=== PATIENT | female | born 1935 | race Caucasian/White ===

== ENCOUNTER 2023-10-05 09:35 | Outpatient (OUT) | payer MEDICARE, SELFPAY ==
[2023-10-05 10:27] LABS: Basophils Absolute Auto 0.1 10^3/uL (0.0-0.1); Eosinophils Absolute Auto 0.1 10^3/uL (0.0-0.7); Eosinophils Percent Auto 1.9 % (0.9-7.0); Hematocrit 35.8 % (36.0-48.0); Hemoglobin 11.7 g/dL (12.0-16.0); Immature Granulocytes Abs Auto 0.01 10^3/uL (0.00-0.03); Immature Granulocytes Pct Auto 0.2 % (0.0-0.5); Lymphocytes Percent Auto 19.5 % (20.5-60.0); Mean Corpuscular HGB Conc 32.7 g/dL (29.9-35.2); Mean Platelet Volume 12.3 fL (9.5-13.5); Monocytes Absolute Auto 0.7 10^3/uL (0.3-0.8); Neutrophils Absolute Auto 3.3 10^3/uL (1.4-6.5); Neutrophils Percent Auto 64.4 % (43.0-75.0); Platelet Count 192 10^3/uL (150-450); Red Blood Count 3.77 10^6/uL (4.20-5.40); Red Cell Distribution Width 12.4 % (11.0-15.0); White Blood Count 5.2 10^3/uL (4.0-11.0)
[2023-10-05 11:38] LABS: Microalbumin Urine Random <1.3 mg/dL (<=30.0)
[2023-10-05 11:50] LABS: Estimated Average Glucose 229 mg/dL; Glycohemoglobin A1C 9.6 % (4.5-6.2)
[2023-10-05 12:03] LABS: Alanine Aminotransferase 26 U/L (14-59); Albumin Globulin Ratio 0.8; Albumin Level 3.4 g/dL (3.4-5.0); Alkaline Phosphatase 90 U/L (46-116); Anion Gap 12.4; Aspartate Amino Transferase 16 U/L (15-37); BUN Creatinine Ratio 16.5; Bilirubin Direct 0.1 mg/dL (0.0-0.2); Bilirubin Total 0.5 mg/dL (0.2-1.0); Calcium 9.2 mg/dL (8.5-10.1); Carbon Dioxide 28.8 mmol/L (21.0-32.0); Chloride 102 mmol/L (98-107); Chol HDL Ratio 3.9; Cholesterol 204 mg/dL (<=200); Estimated GFR (African America >60 (>=60); Estimated GFR (Non-African Ame 59 (>=60); Free T3 2.44 pg/mL (2.18-3.98); Globulin 4.1 g/dL; Glucose 137 mg/dL (74-106); HDL Cholesterol 52 mg/dL (40-60); Potassium 4.2 mmol/L (3.5-5.1); Sodium 139 mmol/L (136-145); Thyroid Stimulating Hormone 5.479 uIU/mL (0.358-3.740); Total Protein 7.5 g/dL (6.4-8.2); Triglycerides 119 mg/dL (<=150); VLDL CHOLESTEROL 23.8 mg/dL
[2023-10-05 12:53] LABS: Free T4 1.08 ng/dL (0.76-1.46)
== END 2023-10-05 09:36 | disposition home or self-care (01) ==
LOC: LAB 09:36
PROVIDERS: PCP Family Medicine; Visit Provider Family Medicine
DX: E11.65 Type 2 diabetes mellitus with hyperglycemia (principal); Z79.899 Other long term (current) drug therapy; E78.5 Hyperlipidemia, unspecified; E03.9 Hypothyroidism, unspecified; E55.9 Vitamin D deficiency, unspecified
CPT/HCPCS: 36415; 80048; 80061; 80076; 82043; 82306; 83036; 84439; 84443; 84481; 85025

== ENCOUNTER 2024-04-06 12:53 | Emergency (ER) | payer MEDICARE, SELFPAY ==
[2024-04-06 13:39] VITALS: BP 171/83; PULSE 68; TEMP 36.6; O2SAT 100; BMI 33.0
--- OUTSIDE RECORDS SUMMARY | 2024-04-06 13:52 | XMS_ITS | CCD ---
Author Organization [facility] CliniSymi Care Team Providers Care Caseworker Protective Services Name Role Phone Boone KEBEDEHe Unavailable Olexa, Mino Unavailable AMANDA, DR PIERCE Morse Primary Care Unavailable NADERER, DR PIERCE Morse Admitting Unavailable NADERER, DR PIERCE Morse Attending Unavailable NADERER, DR PIERCE Morse Consulting Unavailable NADERER, DR PIERCE Morse Admitting Unavailable ZIEBER, DR DELMI Farris Consulting Unavailable NADERER, DR PIERCE Morse Attending Unavailable NADERER, DR PIERCE Morse Primary Care Unavailable NADERER, DR PIERCE Morse Consulting Unavailable NADERER, DR PIERCE Morse Primary Care Unavailable NADERER, DR PIERCE Morse Admitting Unavailable NADERER, DR PIERCE Morse Attending Unavailable NADERER, DR PIERCE Morse Consulting Unavailable NADERER, DR PIERCE Morse Primary Care Unavailable DELIA ., JOSE Admitting Unavailable DELIA ., JOSE Attending Unavailable DELIA De La Rosa, JOSE Consulting Unavailable DARI CARVALHO Consulting Unavailable ELENO REDDY Consulting Unavailable MD Mino Jaimes Attending Provider MD Pierce Patel Primary Care Provider DAVY Bolden Attending Provider Marcia Bolden Unavailable Marcia Bolden Admitting Unavailable Marcia Bolden Attending Unavailable Pierce Patel Primary Care Unavailable Oleadilson, Mino Admitting Unavailable Olexa, Mino Attending Unavailable Pierce Patel Primary Care Unavailable Olexa, Mino Admitting Unavailable Olexa, Mino Attending Unavailable Pierce Patel Primary Care Unavailable Marcia Bolden Admitting Unavailable Marcia Bolden Attending Unavailable Pierce Patel Primary Care Unavailable LYNN SARGENT Referring Unavailab le SETHEREPIERCE Farris Primary Care Unavailabl e Naderer MD, Pierce Primary Care Provider PIERCE PATEL Attending Unavailable PIERCE PATEL Attending Unavailable NICOLE MITCHELL Attending Unavailable PIERCE PATEL Referring Unavailable NICOLE MITCHELL Referring Unavailable PIERCE PATEL Attending Unavailable NICOLE MITCHELL Attending Unavailable PIERCE PATEL Attending Unavailable Medications Current Medications Medication Drug Class(es) Dates Sig (Normalized) Sig (Original) acetaminophen 500 mg oral capsule (5 sources) Start: 10-16-2022 take 1000 mg by mouth four times daily Acetaminophen Active 1000 MG PO Four times daily October 16, 2022 12:00am Start: 10-16-2022 take 2 capsules by m outh four times daily Acetaminophen (Tylenol Extra Strength) 500 mg Capsule Active 1000 MG PO Four times daily October 16, 2022 12:00am take 1 tablet by jasmine th every six hours as needed Acetaminophen 500 MG 1 tablet as needed Orally every 6 hrs Active acetaminophen 325 mg / HYDROcodone bitartrate 5 mg oral tablet (2 sources) Opioid Agonist Start: 11-01-2022 Hydrocodone-Acetaminophen Active 1 TAB PO As Directed November 01, 2022 12:00am acetaminophen 325 mg / oxyCODONE hydrochloride 5 mg oral tablet (2 sources) Opioid Agonist Start: 10-31-2022 take 1 tablet by mouth every four hours as needed for pain Percocet 5-325 MG 1 tablet as needed for pain Orally up to every 4 hrs for 5 days TACHO: [id number] October, Active aspirin 81 mg chewable tablet (10 sources) Platelet Aggregation Inhibitor, Nonsteroidal Anti-inflammator y Drug End: 04-03-2024 aspirin (Aspirin Childrens) 81 MG chewable tablet Chew 81 mg in the morning. 04/03/2024 Discontinued Blood Glucose Monitoring Suppl (ONE TOUCH ULTRA 2) w/Device kit (7 sources) Start: 10-05-2023 Blood Glucose Monitoring Suppl (ONE TOUCH ULTRA 2) w/Device kit USE DIRECTED to check BLOOD SUGAR DAILY 10/05/2023 Active celecoxib 200 mg oral capsule (12 sources) Nonsteroidal Anti-inflammator y Drug Start: 04-03-2024 take 1 capsule by mouth twice daily as needed for pain celecoxib (CeleBREX) 200 MG capsule Indications: Osteoarthrosis, generalized, involving multiple sites Take 1 capsule (200 mg) by mouth 2 (two) times a day as needed for mild pain 60 capsule 3 04/03/2024 Active Start: 04-03-2024 take 1 capsule by mo [facility] twice daily as needed for pain celecoxib (CeleBREX) 200 MG capsule Indications: Osteoarthrosis, generalized, involving multiple sites Take 1 capsule (200 mg) by mouth 2 (two) times a day as needed for mild pain 60 capsule 3 04/03/2024 Active End: 04-03-2024 take 1 capsule by mouth in the morning celecoxib (CeleBREX) 200 MG capsule Take 200 mg by mouth in the morning and 200 mg before bedtime. 04/03/2024 Discontinued cephalexin 500 mg oral capsule (2 sources) Cephalosporin Antibacterial Start: 10-31-2022 take 1 capsule by mouth every eight hours Cephalexin 500 MG 1 capsule Orally every 8 hrs for 2 days October, Active Cholecalciferol (10 sources) Vitamin D End: 04-03-2024 take 1 tablet by mouth once daily Cholecalciferol (VITAMIN D-[address] PO) Take 1 tablet by mouth 1 (one) time each day 04/03/2024 Discontinued take 1 tablet by mouth once wendy y Cholecalciferol (VITAMIN D-[address] PO) Take 1 tablet by mouth 1 (one) time each day Active take 1 tablet by mouth once wendy y Cholecalciferol (VITAMIN D-[address] PO) Take 1 tablet by mouth 1 (one) time each day 0 Active emollient clobetasol propionate 0.5 mg/ml topical cream (17 sources) Corticosteroid Start: 10-16-2022 Clobetasol-Emo llient Active 1 APPLIC TOPICAL Twice daily October 16, 2022 12:00am clobetasol propi ramses (Temovate) 0.05 % emollient cream Apply 1 application topically in the morning and 1 application before bedtime. Active Clobetasol Propi ramses 0.05 % apply to affected area twice a day External for 30 Active furosemide 40 mg oral tablet (10 sources) Loop Diuretic Start: 03-05-2024 take 1 tablet by mouth in the morning furosemide (Lasix) 40 MG tablet Indications: Edema of both legs TAKE 1 TABLET BY MOUTH IN THE MORNING 30 tablet 5 03/05/2024 Active Start: 01-24-2024 take 1 tablet by jasmine th in the morning furosemide (Lasix) 40 MG tablet Indications: Edema of both legs Take 1 tablet (40 mg) by mouth in the morning. 30 tablet 3 07/04/2023 Active gabapentin 100 mg oral capsule (20 sources) Anti-epileptic Agent Start: 04-03-2024 take 1 capsule by mouth in the morning gabapentin (Neurontin) 100 MG capsule Indications: Diabetic polyneuropathy associated with type 2 diabetes mellitus (CMS/HCC) Take 1 capsule (100 mg) by mouth in the morning and 1 capsule (100 mg) before bedtime. 04/03/2024 Active Start: 04-03-2024 take 1 capsule by mo uth in the morning gabapentin (Neurontin) 100 MG capsule Indications: Diabetic polyneuropathy associated with type 2 diabetes mellitus (CMS/HCC) Take 1 capsule (100 mg) by mouth in the morning and 1 capsule (100 mg) before bedtime. 04/03/2024 Active Start: 01-02-2024 End: 04-03-2024 take 1 capsule by mouth in the morning, then take 1 capsule by mouth in the evening, then take 1 capsule by mouth at bedtime gabapentin (Neurontin) 100 MG capsule Indications: Diabetic polyneuropathy associated with type 2 diabetes mellitus (CMS/HCC) TAKE 1 CAPSULE BY MOUTH IN THE MORNING and ONE CAPSULE IN THE EVENING and ONE CAPSULE BEFORE Bedtime 90 capsule 2 03/25/2024 04/03/2024 Discontinued Start: 05-07-2023 take 1 capsule by mo uth three times daily gabapentin (Neurontin) 100 MG capsule Indications: Type 2 diabetes mellitus with diabetic polyneuropathy (HCC) (CMS/HCC) TAKE 1 CAPSULE BY MOUTH THREE TIMES DAILY 90 capsule 2 05/07/2023 Active Start: 10-16-2022 take 100 mg by mouth three times daily Gabapentin Active 100 MG PO Three times daily October 16, 2022 12:00am Gabapentin 100 M G take 1 capsule by mouth AT BEDTIME ON DAY 1 THEN 1 CAPSULE TWICE ... (REFER TO PRESCRIPTION NOTES). Oral for 30 Active glipiZIDE 10 mg oral tablet (17 sources) Sulfonylurea Start: 09-20-2023 take 1 tablet by mouth in the morning glipiZIDE (Glucotrol) 10 MG tablet Indications: Type 2 diabetes mellitus with hyperglycemia, without long-term current use of insulin (CMS/HCC) Take 1 tablet (10 mg) by mouth in the morning and 1 tablet (10 mg) in the evening. Take before meals. 200 tablet 3 09/20/2023 Active Start: 10-16-2022 take 10 mg by mouth twice wendy y Glipizide Active 10 MG PO Twice daily October 16, 2022 12:00am take 2 tablets by mo uth twice daily glipiZIDE 10 MG take 2 tablets by mouth twice a day Oral for 90 Active hydrOXYzine pamoate 25 mg oral capsule (10 sources) Antihistamine End: 04-03-2024 take 1 capsule by mouth once daily hydrOXYzine pamoate (Vistaril) 25 MG capsule Take 25 mg by mouth 1 (one) time each day 04/03/2024 Discontinued ibuprofen 200 mg oral tablet (5 sources) Nonsteroidal Anti-inflammatory Drug Start: 10-16-2022 take 400 mg by mouth every six hours Ibuprofen Active 400 MG PO Q6H October 16, 2022 12:00am take 1 tablet by jasmine th three times daily at mealtime as needed Ibuprofen 200 MG 1 tablet with food or milk as needed Orally Three times a day Active levothyroxine sodium 0.075 mg oral tablet (17 sources) l-Thyroxine Start: 01-02-2024 take 1 tablet by mouth before mealtime levothyroxine (Synthroid, Levoxyl) 75 MCG tablet Indications: Adult hypothyroidism (CMS/HCC) Take 1 tablet (75 mcg) by mouth in the morning. Take before meals. 90 tablet 2 01/02/2024 Active Start: 10-16-2022 take 75 ug by mouth once daily in the morning Levothyroxine Active 75 MCG PO Every morning October 16, 2022 12:00am take 1 tablet by jasmine th once daily Levothyroxine Sodium 75 MCG take 1 tablet by mouth once daily Oral for 30 Active lovastatin 40 mg oral tablet (12 sources) HMG-CoA Reductase Inhibitor Start: 04-03-2024 take 1 tablet by mouth at bedtime lovastatin (Mevacor) 40 MG tablet Indications: Type 2 diabetes mellitus with hyperglycemia, without long-term current use of insulin (CMS/HCC) Take 1 tablet (40 mg) by mouth at bedtime 90 tablet 3 04/03/2024 Active Start: 04-03-2024 take 1 tablet by jasmine th at bedtime lovastatin (Mevacor) 40 MG tablet Indications: Type 2 diabetes mellitus with hyperglycemia, without long-term current use of insulin (CMS/HCC) Take 1 tablet (40 mg) by mouth at bedtime 90 tablet 3 04/03/2024 Active End: 04-03-2024 take 1 tablet by mouth at bedtime lovastatin (Mevacor) 40 MG tablet Take 40 mg by mouth at bedtime 04/03/2024 Discontinued (Reorder) meloxicam 15 mg oral tablet (4 sources) Nonsteroidal Anti-inflammatory Drug Start: 04-14-2021 take 1 tablet by mouth every twenty-four hours Meloxicam 15 MG 1 tablet Orally Once a day for 30 day(s) Apr, Active 24 hr metFORMIN hydrochloride 500 mg extended release oral tablet (17 sources) Biguanide Start: 03-05-2024 take 1 tablet by mouth twice daily metFORMIN XR (Glucophage-XR) 500 MG 24 hr tablet Indications: Type 2 diabetes mellitus with hyperglycemia (CMS/HCC) TAKE 1 TABLET BY MOUTH TWICE DAILY 60 tablet 5 03/05/2024 Active Start: 10-16-2022 take 500 mg by mouth twice katlyn ly Metformin Active 500 MG PO Twice daily October 16, 2022 12:00am take 1 tablet by jasmine th in the morning metFORMIN (Glucophage) 500 MG tablet Take 500 mg by mouth in the morning and 500 mg in the evening. Take with meals. 0 Active omeprazole 20 mg delayed release oral capsule (17 sources) Proton Pump Inhibitor Start: 12-24-2023 take 1 capsule by mouth once daily omeprazole (PriLOSEC) [address] capsule Indications: Gastro-esophageal reflux disease without esophagitis TAKE 1 CAPSULE BY MOUTH DAILY 90 capsule 3 12/24/2023 Active Start: 10-16-2022 take 20 mg by mouth once daily at bedtime Omeprazole Active 20 MG PO Daily at bedtime October 16, 2022 12:00am pioglitazone 45 mg oral tablet (16 sources) Peroxisome Proliferator Receptor alpha Agonist, Peroxisome Proliferator Receptor gamma Agonist, Thiazolidinedione Start: 04-03-2024 take 1 tablet by mouth once daily pioglitazone (Actos) 45 MG tablet Indications: Type 2 diabetes mellitus with hyperglycemia, without long-term current use of insulin (CMS/HCC) Take 1 tablet (45 mg) by mouth Daily 90 tablet 3 04/03/2024 Active Start: 04-03-2024 take 1 tablet by jasmine th once daily pioglitazone (Actos) 45 MG tablet Indications: Type 2 diabetes mellitus with hyperglycemia, without long-term current use of insulin (CMS/HCC) Take 1 tablet (45 mg) by mouth Daily 90 tablet 3 04/03/2024 Active End: 04-03-2024 take 1 tablet by mouth in the morning pioglitazone (Actos) 45 MG tablet Take 45 mg by mouth in the morning. 04/03/2024 Discontinued (Reorder) take 1 tablet by jasmine th once daily potassium chloride 20 meq extended release oral tablet (20 sources) Start: 03-05-2024 take 1 tablet by mouth in the morning potassium chloride CR (K-Tab) 20 MEQ ER tablet Indications: Edema of both legs TAKE 1 TABLET BY MOUTH IN THE MORNING * DO NOT CRUSH, CHEW, OR SPLIT * 30 tablet 5 03/05/2024 Active Start: 07-04-2023 take 1 tablet by jasmine th in the morning potassium chloride CR (K-Tab) 20 MEQ ER tablet Indications: Edema of both legs Take 1 tablet (20 mEq) by mouth in the morning. Do not crush, chew, or split.. 30 tablet 3 07/04/2023 Active End: 04-03-2024 potassium chloride CR (Klor- Con M20) 20 MEQ ER tablet Take 20 mEq by mouth in the morning. Do not crush or chew.. 04/03/2024 Discontinued purified protein derivative of tuberculin 50 unt/ml injectable solution (2 sources) Tuberculosis Skin Test, Skin Test Antigen Aplisol 5 UNIT/0.1ML as directed Intradermal Active semaglutide 3 mg oral tablet (7 sources) Start: 01-02-20 End: 04-03-20 take 1 tablet by mouth before mealtime semaglutide (Rybelsus) 3 MG tablet Indications: Type 2 diabetes mellitus with hyperglycemia, without long-term current use of insulin (CMS/HCC) Take 1 tablet (3 mg) by mouth in the morning. Take before meals. 30 tablet 01/02/2024 04/03/2024 Discontinued traMADol hydrochloride 50 mg oral tablet (10 sources) Opioid Agonist End: 04-03-20 take 1 tablet by mouth four times daily as needed for pain traMADol (Ultram) 50 MG tablet Take 50 mg by mouth 4 (four) times a day as needed for severe pain 04/03/2024 Discontinued Completed/Discontinued Medications Medication Drug Class(es) Dates Sig (Normalized) Sig (Original) 1 ml methylPREDNISolone acetate 40 mg/ml injection (4 sources) Corticosteroid Start: 4 End: methylPREDNISolone acetate (DEPO-Medrol) injection 40 mg Start: 03-19-2024 End: 03-19-2024 40 mg, Intra-articular, Once PRN Procedure, Starting on Sun03/19/24 at 1345, For 1 dose Problems Active Problems Problem Classification Problem Date Documented Date Episodic/Chronic Diabetes mellitus with complications (20 sources) Type 2 diabetes mellitus with hyperglycemia; Translations: [Polyneuropathy due to diabetes mellitus] Onset: 08-17-2022 Chronic Disorders of lipid metabolism (11 sources) Hyperlipidemia, unspecified; Translations: [Dyslipidemia] Onset: 02-19-2022 07-19-2023 Chronic E Codes: Fall (1 source) Fall on same level, unspecified, initial encounter; Translations: [FALL SAME LEVEL UNSPECIFIED INITIAL] Onset: 10-10-2022 Episodic Esophageal disorders (12 sources) Gastroesophageal reflux disease; Translations: [Gastro-esophageal reflux disease without esophagitis] Onset: 07-19-2023 07-19-2023 Chronic Fracture of upper limb (9 sources) Displaced comminuted fracture of shaft of humerus, left arm, initial encounter for closed fracture; Translations: [Unspecified fracture of upper end of left humerus, initial encounter for closed fracture] Onset: 10-10-2022 Episodic Immunity disorders (2 sources) Secondary immune deficiency disorder; Translations: [Immunodeficiency due to conditions classified elsewhere (CMS/[facility])] 04-03-2024 Chronic Nutritional deficiencies (11 sources) Vitamin D deficiency, unspecified; Translations: [Vitamin D deficiency] Onset: 02-19-2022 07-19-2023 Chronic Osteoarthritis (20 sources) Primary coxarthrosis, bilateral; 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] Onset: 04-14-2021 Resolved: 04-14-2021 Chronic Other aftercare (1 source) Other predatory animal exterminator (current) drug therapy; Translations: [OTH INTERMEDIATE CURRENT DRUG THERAPY] Onset: 10-10-2022 Episodic Other aftercare (1 source) terminal superintendent (current) use of aspirin; Translations: [INTERMEDIATE CURRENT USE OF ASPIRIN] Onset: 10-10-2022 Episodic Other aftercare (1 source) senior care (current) use of oral hypoglycemic drugs; Translations: [INTERMEDIATE USE ORAL HYPOGLYCEMIC DX] Onset: 10-10-2022 Episodic Other connective tissue disease (2 sources) History of reverse prosthetic total arthroplasty of left shoulder; Translations: [Presence of left artificial shoulder joint] Chronic Other connective tissue disease (3 sources) Presence of left artificial shoulder joint; Translations: [Status post reverse total shoulder replacement, left] Chronic Other non-traumatic joint disorders (3 sources) Pain in left shoulder; Translations: [PAIN IN LEFT SHOULDER] Onset: 10-08-2022 Episodic Other non-traumatic joint disorders (2 sources) Pain in right knee; Translations: [Pain in joint, lower leg] 03-18-2024 Episodic Other upper respiratory disease (7 sources) Allergic rhinitis due to pollen; Translations: [Allergic rhinitis due to pollen] Onset: 10-01-2023 10-01-2023 Chronic Residual codes; unclassified (12 sources) Bilateral lower limb edema; Translations: [Localized edema] Onset: 07-04-2023 07-04-2023 Episodic Thyroid disorders (11 sources) Hypothyroidism, unspecified; Translations: [Hypothyroidism] Onset: 02-19-2022 07-19-2023 Chronic Unclassified (1 source) Presence of left artificial shoulder joint; Translations: [Presence of left artificial shoulder joint] Onset: 11-09-2022 Unclassified (1 source) Displaced comminuted fracture of shaft of humerus, left arm, initial encounter for closed fracture; Translations: [Displaced comminuted fracture of shaft of humerus, left arm, initial encounter for closed fracture] Onset: 11-01-2022 Unclassified (1 source) Encounter for preprocedural laboratory examination; Translations: [Encounter for preprocedural laboratory examination] Onset: 10-16-2022 Past or Other Problems Problem Classification Problem Date Documented Da te Episodic/Chronic Allergic reactions (9 sources) Urticaria; Translations: [Urticaria, unspecified] Onset: 07-19-2023 07-19-2023 Episodic Other aftercare (7 sources) Long-term current use of drug therapy; Translations: [Other predatory animal exterminator (current) drug therapy] Onset: 10-01-2023 10-01-2023 Episodic Other non-traumatic joint disorders (4 sources) Pain in right shoulder; Translations: [PAIN IN RIGHT SHOULDER] Onset: 10-31-2021 Episodic Results Test Name Value Interpretation Reference Range Facility No Panel Informationon 03-19 Nicole Salazar Keturahaysha, PARCEL CARRIER 03/19/2024 1:46 PM L Inj/Asp: R knee on 03/19/2024 1:45 PM Indications: pain Details: 20 G needle, anterolateral approach Medications: 40 mg methylPREDNISolone acetate 40 MG/ML UTILIZING ASEPTIC TECHNIQUE PT GIVEN INJECTION IN RIGHT KNEE, NEUROVASC INTACT S/P INJ, TOLERATED WELL Procedure, treatment alternatives, risks and benefits explained, specific risks discussed. Consent was given by the patient. [facility] Basic Metabolic Profon 07-03 Anion gap [Moles/Vol] 11 mmol/L Normal 9-17 [facility] Comment on above: Performed By: #### B SANGITA, CBC #### [facility] [employer] [address] [place] [address] Freezer Operator: Edward Franklin MD Calcium [Mass/Vol] 9.4 mg/dL Normal 8.6-10.4 [facility] Comment on above: Performed By: #### B SANGITA, CBC #### [facility] [employer] [address] [place] [address] Freezer Operator: Edward Franklin MD Chloride [Moles/Vol] 102 mmol/L Normal 98-107 [facility] Comment on above: Performed By: #### B SANGITA, CBC #### [facility] [address] [place] [id number] Freezer Operator: Edward Franklin MD CO2 [Moles/Vol] 29 mmol/L Normal 20-31 [facility] Comment on above: Performed By: #### B MP, CBC #### [facility] [address] [place] [id number] Freezer Operator: Edward Franklin MD Creatinine [Mass/Vol] 0.8 mg/dL Normal 0.5-0.9 [facility] Comment on above: Performed By: #### B MP, CBC #### [facility] [address] [place] [id number] Freezer Operator: Edward Franklin MD GFR/1.73 sq M.predicted among non-blacks MDRD (S/P/Bld) [Vol rate/Area] mL/min/{1.73_m2} Normal >60 [facility] Comment on above: Result Comment: These results are not intended for use in patients <18 years of age. eGFR results are calculated without a race factor using the 2020 CKD-EPI equation. Careful clinical correlation is recommended, particularly when comparing to results calculated using previous equations. The CKD-EPI equation is less accurate in patients with extremes of muscle mass, extra-renal metabolism of creatine, excessive creatine ingestion, or following therapy that affects renal tubular secretion. Performed By: #### B SANGITA, CBC #### [facility] [address] [place] [id number] Freezer Operator: Edward Franklin MD Glucose [Mass/Vol] 131 mg/dL High 70-99 [facility] Comment on above: Performed By: #### B MP, CBC #### [facility] [address] [place] [id number] Freezer Operator: Edward Franklin MD Potassium [Moles/Vol] 4.5 mmol/L Normal 3.7-5.3 [facility] Comment on above: Performed By: #### B MP, CBC #### [facility] [address] [place] [phone] Freezer Operator: Edward Franklin MD Sodium [Moles/Vol] 142 mmol/L Normal 135-144 [facility] Comment on above: Performed By: #### B MP, CBC #### [facility] [address] [place] [id number] Freezer Operator: Edward Franklin MD Urea nitrogen [Mass/Vol] 18 mg/dL Normal 8-23 [facility] Comment on above: Performed By: #### B MP, CBC #### [address] [address] Freezer Operator: Edward Franklin MD CBCon 07-03-2023 Erythrocyte distribution width (RBC) [Ratio] 13.1 % Normal 11.8-14.4 [facility] Comment on above: Performed By: #### B MP, CBC #### [address] [address] Freezer Operator: Edward Franklin MD Hematocrit (Bld) [Volume fraction] 35.1 % Low 36.3-47.1 [facility] Comment on above: Performed By: #### B MP, CBC #### [address] [address] Freezer Operator: Edward Franklin MD Hemoglobin (Bld) [Mass/Vol] 11.5 g/dL Low 11.9-15.1 [facility] Comment on above: Performed By: #### B MP, CBC #### [address] [address] Freezer Operator: Edward Franklin MD MCH (RBC) [Entitic mass] 31.3 pg Normal 25.2-33.5 [facility] Comment on above: Performed By: #### B MP, CBC #### [address] [address] Freezer Operator: Edward Franklin MD MCHC (RBC) [Mass/Vol] 32.8 g/dL Normal 28.4-34.8 [facility] Comment on above: Performed By: #### B MP, CBC #### [address] [address] Freezer Operator: Edward Franklin MD MCV (RBC) [Entitic vol] 95.4 fL Normal 82.6-102.9 [facility] Comment on above: Performed By: #### B MP, CBC #### [address] [place] [address] Freezer Operator: Edward Franklin MD NRBC Automated 0.0 per 100 WBC Normal 0.0 [facility] Comment on above: Performed By: #### B MP, CBC #### [address] [place] [address] Freezer Operator: Edward Franklin MD Platelet mean volume (Bld) [Entitic vol] 12.3 fL Normal 8.1-13.5 [facility] Comment on above: Performed By: #### B MP, CBC #### [address] [address] Freezer Operator: Edward Franklin MD Platelets (Bld) [#/Vol] 216 10*3/uL Normal 138-453 [facility] Comment on above: Performed By: #### B MP, CBC #### [address] [address] Freezer Operator: Edward Franklin MD RBC (Bld) [#/Vol] 3.68 10*6/uL Low 3.95-5.11 [facility] Comment on above: Performed By: #### B MP, CBC #### [facility] [address] [place] [address] Freezer Operator: Edward Franklin MD WBC (Bld) [#/Vol] 5.4 10*3/uL Normal 3.5-11.3 [facility] Comment on above: Performed By: #### B MP, CBC #### [facility] [address] [place] [address] Freezer Operator: Edward Franklin MD XR shoulder LT min 2V*on XR shoulder LT min 2V* [facility] Main [address] [address] XRay Report Signed Patient: Azra Saez MR#: [id number] : 1935 Acct:[id number] Age/Sex: 87 / F ADM Date: 12/21/22 Loc: [facility] Room: Type: [facility] CLI Attending Dr: Marcia TAYLORC Copies to: COURTNEY Eid Ordering Provider: COURTNEY Eid Date of Service: 12/21/22 XR/XR shoulder LT min 2V*: Status post reverse total shoulder replacement, left LEFT SHOULDER - 3 views CLINICAL HISTORY: Follow-up shoulder replacement following fracture COMPARISON: 11/09/2022 AP, Y and Grashey views were obtained. A shoulder prosthesis is again visualized. Periprosthetic fracture at the proximal humerus is still noted. There is no significant change in alignment of fracture fragments and callus formation is seen. There is no new fracture or dislocation. Mild degenerative change is present at the acromioclavicular joint and spurring at the undersurface of the acromion. There are no significant soft tissue abnormalities. XR/XR shoulder LT min 2V* IMPRESSION: STABLE SHOULDER PROSTHESIS AND PROXIMAL HUMERUS FRACTURE Impression dictated by: Vera Croft M.D.12/21/2022 4:44 PM Dictation Location: [place] [address] Transcribed By: [facility] 12/21/221643 Dictated By: Vera Croft MD 12/21/221641 Signed By: 12/21/22 164 [facility] XR shoulder LT min 2V*on XR shoulder LT min 2V* [facility] [place] [address] XRay Report Signed Patient: Azra Saez MR#: [id number] : 1935 Acct:[id number] Age/Sex: 87 / F ADM Date: 11/09/22 Loc: [facility] Room: Type: [facility] CLI Attending Dr: Marcia BHATTI Copies to: COURTNEY Eid Ordering Provider: COURTNEY Eid Date of Service: 11/09/22 XR/XR shoulder LT min 2V*: Status post reverse total shoulder replacement, left LEFT SHOULDER - 3 views CLINICAL HISTORY: Follow-up shoulder prosthesis and fracture COMPARISON: 11/01/2022 AP, Y and Grashey views were obtained. There is osteopenia. A reverse shoulder prosthesis is again visualized. The hardware appears intact and in appropriate position. There is redemonstration of periprosthetic fracture at the proximal humerus with no change in alignment of fragments since the previous study. No dislocation is identified. There are no significant soft tissue abnormalities. XR/XR shoulder LT min 2V* IMPRESSION: STABLE LEFT SHOULDER PROSTHESIS AND PROXIMAL HUMERAL FRACTURE Impression dictated by: Vera Croft M.D.11/09/2022 3:25 PM Dictation Location: [facility] Transcribed By: QIAN 11/09/22 152 Dictated By: Vera Croft MD 11/09/22 152 Signed By: 11/09/22 1525 Normal [facility] Glucose Glucometer (BldC) [M ass/Vol]Ordered By: Mino Jaimes on 11-03-2022 Glucose [Mass/Vol] 131 mg/dL [facility] Comment on above: Random Glucose Refer ence Range is dependent on time and content of last meal. Glucose of more than 200 mg/dL in a nonstressed, ambulatory subject supports the diagnosis of Diabetes Mellitus. Glucose Poct Glucometerson 0 11-03-2022 Commemt1 Glu2: Cleaned Meter Normal [facility] Comment on above: Result Comment: PERF ORMED BY: [facility] [address] [place] [address] PATHOLOGIST RISK SPECIALIST MEENAKSHI LEVINE M.D. Performed By: #### G LULS #### Point of Care testing , Glucose [Mass/Vol] 131 mg/dL [facility] Comment on above: Result Comment: [place] Glucose Reference Range is dependent on time and content of last meal. Glucose of more than 200 mg/dL in a nonstressed, ambulatory subject supports the diagnosis of Diabetes Mellitus. Performed By: #### G LULS #### Point of Care testing , No Panel InformationOrdered By: Mino Jaimes on 11-03-2022 Bedside Glucose Comment Glu2: cleaned meter [facility] Glucose Poct Glucometerson 0 11-01-2022 Commemt1 Glu2: Cleaned Meter Normal [facility] Comment on above: Result Comment: PERF ORMED BY: [place] [id number] PATHOLOGIST RISK SPECIALIST MEENAKSHI LEVINE M.D. Performed By: #### G LULS #### Point of Care testing , Glucose [Mass/Vol] 130 mg/dL Normal [facility] Comment on above: Result Comment: [place] Glucose Reference Range is dependent on time and content of last meal. Glucose of more than 200 mg/dL in a nonstressed, ambulatory subject supports the diagnosis of Diabetes Mellitus. Performed By: #### G LULS #### Point of Care testing , XR shoulder LT min 2V*on XR shoulder LT min 2V* [facility] Main [address] [address] XRay Report Signed Patient: Azra Saez MR#: [id number] : 1935 Acct:[id number] Age/Sex: 87 / F ADM Date: 11/01/22 Loc: [place] Room: Type: [facility] Attending Dr: Mino Jaimes MD Copies to: Mino Jaimes MD Ordering Provider: Mino Jaimes MD Date of Service: 11/01/22 XR/XR shoulder LT min 2V*: Post op shoulder replacement LEFT SHOULDER - 3 views CLINICAL HISTORY: Follow-up after shoulder replacement. Recent fracture. COMPARISON: 10/08/2022 AP, Y and Grashey views were obtained. There is a new reverse shoulder prosthesis. The hardware appears intact and in appropriate position. There is redemonstration of fracture at the neck of the humerus and at the lateral base of the greater tuberosity. No additional fracture or dislocation is identified. There are no significant soft tissue findings. XR/XR shoulder LT min 2V* IMPRESSION: INTERVAL SHOULDER REPLACEMENT. RESIDUAL PROXIMAL HUMERUS FRACTURE. Impression dictated by: Vera Croft M.D.11/01/2022 10:29 AM Dictation Location: [place] [address] Transcribed By: [facility] 11/01/22 1029 Dictated By: Vera Croft MD 11/01/22 1015 Signed By: 11/01/22 1029 Normal [facility] Automated basophil %Ordered By: Mino Jaimes on 10-16-2022 Basophils/100 WBC (Bld) 0.7 % Normal . [facility] Comment on above: Performed By: #### C BC, BMP #### [address] Automated basophil countOrde red By: Mino Jaimes on 10-16-2022 Basophils (Bld) [#/Vol] 0.0 10*3/uL Normal 0.0-0.2 [facility] Comment on above: Result Comment: PERF ORMED BY: [place] [address] PATHOLOGIST RISK SPECIALIST MEENAKSHI LEVINE M.D. Performed By: #### C BC, BMP #### [address] Automated blood monocyte cou ntOrdered By: Mino Jaimes on 10-16-2022 Monocytes (Bld) [#/Vol] 0.4 10*3/uL Normal 0.0-0.8 [facility] Comment on above: Performed By: #### C BC, BMP #### [address] Automated eosinophil %Ordere d By: Mino Jaimes on 10-16-2022 Eosinophils/100 WBC (Bld) 4.7 % Normal . [facility] Comment on above: Performed By: #### C BC, BMP #### [address] Automated eosinophil countOr dered By: Mino Jaimes on 10-16-2022 Eosinophils (Bld) [#/Vol] 0.3 10*3/uL Normal 0.0-0.45 [facility] Comment on above: Performed By: #### C BC, BMP #### [address] Automated monocyte %Ordered By: Mino Jaimes on 10-16-2022 Monocytes/100 WBC (Bld) 6.9 % Normal . [facility] Comment on above: Performed By: #### C BC, BMP #### [address] Automated neutrophil %Ordere d By: Mino Avilaxa on 10-16-2022 Neutrophils/100 WBC (Bld) 72.7 % Normal . [facility] Comment on above: Performed By: #### C BC, BMP #### [address] Basic Metabolic Panelon GFR/1.73 sq M.predicted MDRD (S/P/Bld) [Vol rate/Area] mL/min/{1.73_m2} Normal [facility] Comment on above: Performed By: #### C BC, BMP #### [address] Calcium [Mass/volume] in Ser um or PlasmaOrdered By: Mino Jaimes on 10-16-2022 Calcium [Mass/Vol] 8.6 mg/dL Normal 8.6-10.3 [facility] Comment on above: Result Comment: PERF ORMED BY: [place] [address] PATHOLOGIST RISK SPECIALIST MEENAKSHI LEVINE M.D. Performed By: #### C BC, BMP #### [address] Carbon dioxide, total [Moles /volume] in Serum or PlasmaOrdered By: Mino Jaimes on 10-16-2022 CO2 [Moles/Vol] 26.4 mmol/L Normal 21.0-31.0 [facility] Comment on above: Performed By: #### C BC, BMP #### [place] [address] [place] Chloride [Moles/volume] in S mikayla or PlasmaOrdered By: Mino Avilaxa on 10-16-2022 Chloride [Moles/Vol] 102 mmol/L Normal 98-107 [facility] Comment on above: Performed By: #### C BC, BMP #### [address] Complete Blood Count Auto Di ffon 10-16-2022 Mean Corpuscular HGB Conc 34.0 g/dL Normal 32.0-35.0 [facility] Comment on above: Performed By: #### C BC, BMP #### [facility] [address] [place] [address] NRBC% 0.0 /100{WBC} Normal 0-0.5 [facility] Comment on above: Performed By: #### C BC, BMP #### [address] Creatinine [Mass/volume] in Serum or PlasmaOrdered By: Mino Jaimes on 10-16-2022 Creatinine [Mass/Vol] 0.88 mg/dL Normal 0.60-1.20 [facility] Comment on above: Performed By: #### C BC, BMP #### [address] ECG 12 lead ECGon 10-16-2022 ECG 12 lead ECG [facility] Main [place] [address] [place] [address] Electrocardiograph Report Signed Patient: Azra Saez MR#: [id number] : 1935 Acct:[id number] Age/Sex: 87 / F ADM Date: 10/16/22 Loc: Room: Type: [facility] Attending Dr: Mino Jaimes MD Ordering Provider: Mino Jaimes MD Date of Service: 10/16/2201/31/1438 ECG/ECG 12 lead ECG: LEFT REVERSE TOTAL SHOULDER ARTHROPLASTY Copies to: Test Reason : Blood Pressure : / mmHG Vent. Rate : 062 BPM Atrial Rate : 062 BPM P-R Int : 152 ms QRS Dur : 080 ms QT Int : 424 ms P-R-T Axes : 034 -02 048 degrees QTc Int : 430 ms Normal sinus rhythm Nonspecific ST and T wave abnormality -minor/artifact Borderline ECG No previous ECGs available Confirmed by ELSA MUNROE DO ([id number]) on 10/18/2022 12:37:55 PM Referred By: RAJAN Electronically Signed By:ELSA MUNROE DO Transcribed By: BRANDON Signed By Elsa Munroe DO 10/18 1237 Normal [facility] Erythrocyte distribution wid th [Ratio] by Automated countOrdered By: Mino Jaimes on 10-16-2022 Erythrocyte distribution width (RBC) [Ratio] 13.3 % Normal 11.9-15.3 [facility] Comment on above: Performed By: #### C BC, BMP #### [facility] [address] Erythrocytes [#/volume] in B lood by Automated countOrdered By: Mino Jaimes on 10-16-2022 RBC (Bld) [#/Vol] 3.44 10*6/uL Low 3.60-5.00 [facility] Comment on above: Performed By: #### C BC, BMP #### [facility] [address] [place] [address] [place] Glucose [Mass/volume] in Ser um or PlasmaOrdered By: Mino Jaimes on 10-16-2022 Glucose [Mass/Vol] 152 mg/dL High 70-100 [facility] Comment on above: ADA recommended refe rence rangeRandom Glucose Reference Range is dependent on time and content of last meal. Glucose of more than 200 mg/dL in a nonstressed, ambulatory subject supports the diagnosis of Diabetes Mellitus. Result Comment: [place] om Glucose Reference Range is dependent on time and content of last meal. Glucose of more than 200 mg/dL in a nonstressed, ambulatory subject supports the diagnosis of Diabetes Mellitus. ADA recommended reference range Performed By: #### C BC, BMP #### [facility] [address] [place] [id number] [place] Hematocrit [Volume Fraction] of Blood by Automated countOrdered By: Mino Jaimes on 10-16-2022 Hematocrit (Bld) [Volume fraction] 31.4 % Low 34.0-46.4 [facility] Comment on above: Performed By: #### C BC, BMP #### [place] [address] [place] Hemoglobin [Mass/volume] in BloodOrdered By: Mino Jaimes on 10-16-2022 Hemoglobin (Bld) [Mass/Vol] 10.7 g/dL Low 11.8-15.4 [facility] Comment on above: Performed By: #### C BC, BMP #### [address] Leukocytes [#/volume] correc bouchra for nucleated erythrocytes in Blood by Automated counOrdered By: Mino Jaimes on 10-16-2022 WBC corrected for nucl RBC Auto (Bld) [#/Vol] 6.2 10*3/uL 3.8-11.6 [facility] Leukocytes [#/volume] in Blo od by Automated countOrdered By: Mino Jaimes on 10-16-2022 WBC (Bld) [#/Vol] 6.2 10*3/uL Normal 3.8-11.6 [facility] Comment on above: Performed By: #### C BC, BMP #### [address] Lymphocytes [#/volume] in Bl ood by Automated countOrdered By: Mino Jaimes on 10-16-2022 Lymphocytes (Bld) [#/Vol] 0.9 10*3/uL Low 1.00-4.8 [facility] Comment on above: Performed By: #### C BC, BMP #### [place] [address] [place] Lymphocytes/100 leukocytes i n Blood by Automated countOrdered By: Mino Jaimes on 10-16-2022 Lymphocytes/100 WBC (Bld) 15.0 % Normal . [facility] Comment on above: Performed By: #### C BC, BMP #### [place] [address] [place] MCH [Entitic mass] by Automa bouchra countOrdered By: Mino Jaimes on 10-16-2022 MCH (RBC) [Entitic mass] 31.0 pg Normal 24.7-34.3 [facility] Comment on above: Performed By: #### C BC, BMP #### [address] MCHC Auto (RBC) [Mass/Vol]Or dered By: Mino Jaimes on 10-16-2022 MCHC (RBC) [Mass/Vol] 34.0 g/dL 32.0-35.0 [facility] MCV [Entitic volume] by Auto mated countOrdered By: Mino Jaimes on 10-16-2022 MCV (RBC) [Entitic vol] 91.2 fL Normal 80-100 [facility] Comment on above: Performed By: #### C BC, BMP #### [address] Neutrophils [#/volume] in Bl ood by Automated countOrdered By: Mino Jaimes on 10-16-2022 Neutrophils (Bld) [#/Vol] 4.5 10*3/uL Normal 1.8-7.7 [facility] Comment on above: Performed By: #### C BC, BMP #### [address] No Panel InformationOrdered By: Mino Jaimes on 10-16-2022 Estimated GFR (CKD-EPI) > 60.0 mL/Min [facility] Creatinine Clearance (Chem N/A [facility] Nucleated erythrocytes [Pres ence] in Blood by Automated countOrdered By: Mino Jaimes on 10-16-2022 Nucleated RBC Auto Ql (Bld) 0.0 /100{WBC} 0-0.5 [facility] Platelet mean volume [Entiti c volume] in Blood by Automated countOrdered By: Mino Jaimes on 10-16-2022 Platelet mean volume (Bld) [Entitic vol] 9.9 fL Normal 6.3-10.7 [facility] Comment on above: Performed By: #### C BC, BMP #### [facility] [address] [place] [address] Platelets [#/volume] in Bloo d by Automated countOrdered By: Mino Jaimes on 10-16-2022 Platelets (Bld) [#/Vol] 231 10*3/uL Normal 150-450 [facility] Comment on above: Performed By: #### C BC, BMP #### [address] Potassium [Moles/volume] in Serum or PlasmaOrdered By: Mino Jaimes on 10-16-2022 Potassium [Moles/Vol] 3.8 mmol/L Normal 3.5-5.1 [facility] Comment on above: Performed By: #### C BC, BMP #### [address] Serum or plasma anion gap de terminationOrdered By: Mino Jaimes on 10-16-2022 Anion gap [Moles/Vol] 12.4 mmol/L Normal 6.0-15.0 [facility] Comment on above: Performed By: #### C BC, BMP #### [address] Sodium [Moles/volume] in Ser um or PlasmaOrdered By: Mino Avilaxa on 10-16-2022 Sodium [Moles/Vol] 137 mmol/L Normal 136-145 [facility] Comment on above: Performed By: #### C BC, BMP #### [address] Urea nitrogen [Mass/volume] in Serum or PlasmaOrdered By: Mino Jaimes on 10-16-2022 Urea nitrogen [Mass/Vol] 17 mg/dL Normal 7-25 [facility] Comment on above: Performed By: #### C BC, BMP #### [address] SHOULDER LT WO CONon 04-3 CT SHOULDER LT WO CON EXAMINATION: CT SHOULDER LT WO CON 10/08/2022. HISTORY: Left shoulder pain after a fall. Comminuted fracture of the proximal humerus on radiographs. Preoperative evaluation. COMPARISON: Radiographs left shoulder 10/08/2022. TECHNIQUE: Multiple contiguous axial CT images of the left shoulder were obtained without contrast. Sagittal and coronal reformatted images were made. Dose reduction techniques were achieved by using automated exposure control and/or adjustment of mA and/or kV according to patient size and/or use of iterative reconstruction technique. FINDINGS: There are mild degenerative changes of the acromioclavicular joint. There is a type III acromion and subacromial enthesophyte. There is marginal osteophyte formation of the posterior glenoid. There is redemonstration of an acute comminuted, intra-articular fracture of the proximal humerus involving the humeral head, the greater tuberosity, the lesser tuberosity and the surgical neck of the humerus. The major fracture fragment of the anterosuperior aspect of the humeral head and greater tuberosity is again seen to be displaced cranially 7 mm. The fracture of the surgical neck of the humerus is again seen to be mildly displaced medially 3 mm and posteriorly 3 mm. There is impaction of the fracture of the surgical neck of the humerus of 4 mm. There is no atrophy of the rotator cuff muscles. IMPRESSION: 1. There is an acute comminuted intra-articular fracture of the proximal humerus again seen as described above. No dislocation is seen. 2. 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 3. There is a type III acromion. 4. Mild acromioclavicular joint osteoarthritis. Electronically authenticated by: DARI CARVALHO Date: 2022-10-08 12:57 Normal [facility] GLYCOHEMOGLOBIN A1Con 2022 ADA RECOMMENDATION SEE BELOW Normal [facility] Comment on above: Result Comment: ADA RECOMMENDED LIMIT 4.0 - 6.0 ADA THERAPEUTIC TARGET < 7.0 ACTION SUGGESTED > 7.0 Performed By: #### A 1C ####[facility] [id number] [place] [address]DrEstrella Mccauley Glucose [Mass/Vol] 194 mg/dL Normal [facility] Comment on above: Performed By: #### A 1C ####[facility] [id number] [place] [id number] Mccauley HbA1c (Bld) [Mass fraction] 8.4 % Critically high 4.5-6.2 [facility] Comment on above: Performed By: #### A 1C ####[facility] [address] [place] [id number] Mccauley VIT D 25-OH LABCORPon 2021 Vitamin D, 25-Hydroxy 30.7 ng/mL Normal 30.0-100.0 [facility] Comment on above: Result Comment: Jayda min D deficiency has been defined by the [place] [employer] and an Endocrine Society practice guideline as a level of serum 25-OH vitamin D less than 20 ng/mL (1,2). The Endocrine Society went on to further define vitamin D insufficiency as a level between 21 and 29 ng/mL (2). 1. IOM ([place] [employer]). 2010. Dietary reference intakes for calcium and D. Be [place]: The National Academies Press. 2. Terry MF, Jose David MCCRARY, Mary Beth PERALTA, et al. Evaluation, treatment, and prevention of vitamin D deficiency: an Endocrine Society clinical practice guideline. JCEM. 2010; 96(7):1911-30. Performed By: #### V ITADLC #### [facility] [address] [place] [address] Dr. Sandra Mccauley MICROALBUMIN URINEon 022 Albumin, Urine 5.9 ug/mL Normal Not Estab. [facility] Comment on above: Performed By: #### M ALBLC #### [facility] [address] [place] [address] Dr. Sandra Mccauley CBC AUTO DIFFon 02-16-2022 BASO # 0.0 103/ul Normal 0.0-0.1 [facility] Comment on above: Performed By: #### C BC #### [facility] [address] [place] [address] Dr. Sandra Mccauley Basophils/100 WBC (Bld) 0.9 % Normal 0.2-2.0 [facility] Comment on above: Performed By: #### C BC #### [facility] [address] [place] [address] Dr. Sandra Mccauley EO # 0.1 103/ul Normal 0.0-0.7 [facility] Comment on above: Performed By: #### C BC #### [facility] [address] [place] [address] Dr. Sanrda Mccauley Eosinophils/100 WBC (Bld) 2.9 % Normal 0.9-7.0 [facility] Comment on above: Performed By: #### C BC #### [facility] [address] [place] [address] Dr. Sandra Mccauley Erythrocyte distribution width (RBC) [Ratio] 12.5 % Normal 11.0-15.0 [facility] Comment on above: Performed By: #### C BC #### [facility] [address] [place] [address] Dr. Sandra Mccauley Hematocrit (Bld) [Volume fraction] 36.3 % Normal 36.0-48.0 [facility] Comment on above: Performed By: #### C BC #### [facility] [address] [place] [address] Dr. Sandra Mccauley Hemoglobin (Bld) [Mass/Vol] 12.1 g/dL Normal 12.0-16.0 [facility] Comment on above: Performed By: #### C BC #### [facility] [address] [place] [address] Dr. Sandra Mccauley IG # 0.02 10e3/ul Normal 0.00-0.03 [facility] Comment on above: Performed By: #### C BC #### [facility] [address] [place] [address] Dr. Sandra Mccauley IG % 0.4 % Normal 0.0-0.5 [facility] Comment on above: Performed By: #### C BC #### [facility] [address] [place] [address] Dr. Sandra Mccauley LYMPH # 1.3 103/ul Normal 1.2-3.8 [facility] Comment on above: Performed By: #### C BC #### [facility] [address] [place] [address] Dr. Sandra Mccauley Lymphocytes/100 WBC (Bld) 28.9 % Normal 20.5-60.0 [facility] Comment on above: Performed By: #### C BC #### [facility] [address] [place] [address] Dr. Sandra Mccauley MANUAL DIFF REQ NO Normal [facility] Comment on above: Performed By: #### C BC #### [facility] [address] [place] [address] Dr. Sandra Mccauley MCH (RBC) [Entitic mass] 31.4 pg Normal 26.7-34.0 [facility] Comment on above: Performed By: #### C BC #### [facility] [address] [place] [address] Dr. Sandra Mccauley MCHC (RBC) [Mass/Vol] 33.3 g/dL Normal 29.9-35.2 [facility] Comment on above: Performed By: #### C BC #### [facility] [address] [place] [address] Dr. Sandra Mccauley MCV (RBC) [Entitic vol] 94.3 fL Normal 81.0-99.0 [facility] Comment on above: Performed By: #### C BC #### [facility] [address] [place] [address] Dr. Sandra Mccauley MONO # 0.5 103/ul Normal 0.3-0.8 [facility] Comment on above: Performed By: #### C BC #### [facility] [address] [place] [address] Dr. Sandra Mccauley Monocytes/100 WBC (Bld) 11.6 % Normal 1.7-12.0 [facility] Comment on above: Performed By: #### C BC #### [facility] [address] [place] [address] Dr. Sandra Mccauley NEUT # 2.5 103/ul Normal 1.4-6.5 [facility] Comment on above: Performed By: #### C BC #### [facility] [address] [place] [address] Dr. Sandra Mccauley Neutrophils/100 WBC (Bld) 55.3 % Normal 43.0-75.0 [facility] Comment on above: Performed By: #### C BC #### [facility] [address] [place] [address] Dr. Sandra Mccauley Platelet mean volume (Bld) [Entitic vol] 12.0 fL Normal 9.5-13.5 [facility] Comment on above: Performed By: #### C BC #### [facility] [address] [place], [place] [address] Dr. Sandra Mccauley PLT 223 103/ul Normal 150-450 [facility] Comment on above: Performed By: #### C BC #### [facility] [address] [place] [id number] Sandra Mccauley RBC 3.85 106/ul Critically low 4.20-5.40 [facility] Comment on above: Performed By: #### C BC #### [facility] [id number] Sandra Mccauley WBC 4.5 103/ul Normal 4.0-11.0 [facility] Comment on above: Performed By: #### C BC #### [facility] [address] [address] [address] Sandra Mccauley FREE T3on 02-16-2022 FREE T3 1.92 pg/mlL Critically low 2.18-3.98 [facility] Comment on above: Performed By: #### L IPID, BMP, LIVER, TSH, FT3 ####[facility] [address] [address]DrEstrella Mccauley FREE T4on 02-16-2022 Free T4 [Mass/Vol] 1.20 ng/dL Normal 0.76-1.46 [facility] Comment on above: Performed By: #### F T4 ####[facility] [address] [id number] Mccauley GLYCOHEMOGLOBIN A1Con 2021 ADA RECOMMENDATION SEE BELOW Normal [facility] Comment on above: Result Comment: ADA RECOMMENDED LIMIT 4.0 - 6.0 ADA THERAPEUTIC TARGET < 7.0 ACTION SUGGESTED > 7.0 Performed By: #### A 1C ####[facility] [address] [address]DrEstrella Mccauley Glucose [Mass/Vol] 186 mg/dL Normal [facility] Comment on above: Performed By: #### A 1C ####[facility] [address] [address]Dr. Sandra Mccauley HbA1c (Bld) [Mass fraction] 8.1 % Critically high 4.5-6.2 [facility] Comment on above: Performed By: #### A 1C ####[facility] [address] [address]Dr. Sandra Mccauley LIPID PROFILEon 02-16-2022 CHOL-HDL RATIO NORM SEE BELOW Normal [facility] Comment on above: Result Comment: 3.3 - 4.4 LOW RISK 4.4 - 7.1 AVERAGE RISK 7.1 - 11.0 MODERATE RISK >11.0 HIGH RISK Performed By: #### L IPID, BMP, LIVER, TSH, FT3 #### [facility] [address] [address] [address] Sandra Mccauley Cholesterol [Mass/Vol] 188 mg/dL Normal <=200 [facility] Comment on above: Performed By: #### L IPID, BMP, LIVER, TSH, FT3 #### [facility] [address] [address] [address] Sandra Mccauley Cholesterol in HDL [Mass/Vol] 43 mg/dL Normal 40-60 [facility] Comment on above: Performed By: #### L IPID, BMP, LIVER, TSH, FT3 #### [facility] [address] [address] [address] Sandra Mccauley Cholesterol in LDL [Mass/Vol] 94.8 mg/dL Normal [facility] Comment on above: Performed By: #### L IPID, BMP, LIVER, TSH, FT3 #### [facility] [address] [address] [address] Sandra Mccauley Cholesterol.total/Pura sterol in HDL [Mass ratio] 4.4 {ratio} Normal [facility] Comment on above: Performed By: #### L IPID, BMP, LIVER, TSH, FT3 #### [facility] [address] [address] [address] Sandra Mccauley HDL NORMAL > or = 60 mg/dl - LO W CARDIOVASCULAR RISK <40 mg/dl - HIGH CARDIOVASCULAR RISK Normal [facility] Comment on above: Performed By: #### L IPID, BMP, LIVER, TSH, FT3 #### [facility] [address] [address] [address] Sandra Mccauley LDL CALC NORMAL SEE BELOW Normal [facility] Comment on above: Result Comment: <100 mg/dl OPTIMAL 100 - 129 mg/dl NEAR OR ABOVE OPTIMAL 130 - 159 mg/dl BORDERLINE HIGH 160 - 189 mg/dl HIGH >190 mg/dl VERY HIGH Performed By: #### L IPID, BMP, LIVER, TSH, FT3 #### [facility] [address] [address] [address] Sandra Mccauley Triglyceride [Mass/Vol] 251 mg/dL Critically high <=150 [facility] Comment on above: Performed By: #### L IPID, BMP, LIVER, TSH, FT3 #### [facility] [address] [address] [address] Sandra Mccauley VLDL CALC 50.2 mg/dL Normal [facility] Comment on above: Performed By: #### L IPID, BMP, LIVER, TSH, FT3 #### [facility] [address] [address] [address] Sandra Mccauley LIVER PROFILEon 02-16-2022 Albumin [Mass/Vol] 3.7 g/dL Normal 3.4-5.[address] [facility] Comment on above: Performed By: #### L IPID, BMP, LIVER, TSH, FT3 #### [facility] [address] [address] [address] Sandra Mccauley Albumin/Globulin [Mass ratio] 1.0 {ratio} Normal [facility] Comment on above: Performed By: #### L IPID, BMP, LIVER, TSH, FT3 #### [facility] [address] [address] [address] Sandra Mccauley ALP [Catalytic activity/Vol] 84 U/L Normal 46-116 [facility] Comment on above: Performed By: #### L IPID, BMP, LIVER, TSH, FT3 #### [facility] [address] [address] [address] Sandra Mccauley ALT [Catalytic activity/Vol] 37 U/L Normal 14-59 [facility] Comment on above: Performed By: #### L IPID, BMP, LIVER, TSH, FT3 #### [facility] [address] [place] [address] Dr. Sandra Mccauley AST [Catalytic activity/Vol] 21 U/L Normal 15-37 [facility] Comment on above: Performed By: #### L IPID, BMP, LIVER, TSH, FT3 #### [facility] [address] [place] [address] Dr. Sandra Mccauley BILI, CONJUGATED 0.1 mg/dL Normal 0.0-0.2 [facility] Comment on above: Performed By: #### L IPID, BMP, LIVER, TSH, FT3 #### [facility] [address] [place] [address] Dr. Sandra Mccauley Bilirubin [Mass/Vol] 0.4 mg/dL Normal 0.2-1.0 [facility] Comment on above: Performed By: #### L IPID, BMP, LIVER, TSH, FT3 #### [facility] [address] [place] [address] Dr. Sandra Mccauley Globulin (S) [Mass/Vol] 3.6 g/dL Normal [facility] Comment on above: Performed By: #### L IPID, BMP, LIVER, TSH, FT3 #### [facility] [address] [place] [address] Dr. Sandra Mccauley Protein [Mass/Vol] 7.3 g/dL Normal 6.4-8.2 [facility] Comment on above: Performed By: #### L IPID, BMP, LIVER, TSH, FT3 #### [facility] [address] [place] [address] Dr. Sandra Mccauley PROF CHEM 8 (BAS METB)on Anion gap [Moles/Vol] 10.8 mmol/L Normal [facility] Comment on above: Performed By: #### L IPID, BMP, LIVER, TSH, FT3 #### [facility] [address] [place] [address] Dr. Sandra Mccauley Calcium [Mass/Vol] 9.3 mg/dL Normal 8.5-10.1 [facility] Comment on above: Performed By: #### L IPID, BMP, LIVER, TSH, FT3 #### [facility] [address] [address] [address] Sandra Mccauley Chloride [Moles/Vol] 101 mmol/L Normal 98-107 [facility] Comment on above: Performed By: #### L IPID, BMP, LIVER, TSH, FT3 #### [facility] [address] [place] [address] Dr. Sandra Mccauley CO2 [Moles/Vol] 29.2 mmol/L Normal 21.0-32.0 [facility] Comment on above: Performed By: #### L IPID, BMP, LIVER, TSH, FT3 #### [facility] [address] [place] [address] Dr. Sandra Mccauley Creatinine [Mass/Vol] 0.96 mg/dL Normal 0.55-1.02 [facility] Comment on above: Performed By: #### L IPID, BMP, LIVER, TSH, FT3 #### [facility] [address] [place] [address] Dr. Sandra Mccauley EGFR-AF CITIZEN [place] >60 Normal >=60 [facility] Comment on above: Performed By: #### L IPID, BMP, LIVER, TSH, FT3 #### [facility] [address] [place] [address] Dr. Sandra Mccauley EGFR-NON AF CITIZEN OF [place] 55 mL/min/1.73m2 Critically low >=60 [facility] Comment on above: Performed By: #### L IPID, BMP, LIVER, TSH, FT3 #### [facility] [address] [address] [address] Sandra Mccauley Glucose [Mass/Vol] 164 mg/dL Critically high 74-106 [facility] Comment on above: Performed By: #### L IPID, BMP, LIVER, TSH, FT3 #### [facility] [address] [address] [address] Sandra Mccauley Potassium [Moles/Vol] 4.0 mmol/L Normal 3.5-5.1 [facility] Comment on above: Performed By: #### L IPID, BMP, LIVER, TSH, FT3 #### [facility] [address] [address] [address] Sandra Mccauley Sodium [Moles/Vol] 137 mmol/L Normal 136-[address] [facility] Comment on above: Performed By: #### L IPID, BMP, LIVER, TSH, FT3 #### [facility] [address] [address] [address] Sandra Mccauley Urea nitrogen [Mass/Vol] 14.0 mg/dL Normal 7.0-18.0 [facility] Comment on above: Performed By: #### L IPID, BMP, LIVER, TSH, FT3 #### [facility] [address] [place] [address] Dr. Sandra Mccauley Urea nitrogen/Creatinine [Mass ratio] 14.6 mg/mg Normal [facility] Comment on above: Performed By: #### L IPID, BMP, LIVER, TSH, FT3 #### [facility] [address] [place] [address] Dr. Sandra Mccauley TSHon 02-16-2022 TSH 1.662 uIU/mL Normal 0.358-3.740 [facility] Comment on above: Performed By: #### L IPID, BMP, LIVER, TSH, FT3 #### [facility] [address] [place] [address] Dr. Sandra Mccauley Vital Signs Date Time Vital Sign Value Performing Clinician Facility 04-03-2024 13: Body height 157.5 cm Pierce Patel MD Work Phone: [facility] 04-03-2024 13: Body mass index (BMI) [Ratio] 30.91 kg/m2 Pierce Patel MD Work Phone: [facility] 04-03-2024 13: Body temperature 95.31 [degF] Pierce Patel MD Work Phone: [facility] 04-03-2024 13:14 Body weight 76.66 kg Pierce Patel MD Work Phone: [facility] 04-03-2024 13:14-0400 Diastolic blood pressure 70 mm[Hg] Pierce Patel MD Work Phone: [facility] 04-03-2024 13:14-0400 Heart rate 68 /min Pierce Patel MD Work Phone: [facility] 04-03-2024 13:14-0400 Respiratory rate 20 /min Pierce Patel MD Work Phone: [facility] 04-03-2024 13:14-0400 SaO2% (BldA) [Mass fraction] 97 % Pierce Patel MD Work Phone: [facility] 04-03-2024 13:14-0400 Systolic blood pressure 140 mm[Hg] Pierce Patel MD Work Phone: [facility] 07-19-2023 13:24-0500 Body height 157.5 cm Pierce Patel MD Work Phone: [facility] 07-19-2023 13:24-0500 Body mass index (BMI) [Ratio] 30.91 kg/m2 Pierce Patel MD Work Phone: [facility] 07-19-2023 13:24-0500 Body temperature 97.5 [degF] Pierce Patel MD Work Phone: [facility] 07-19-2023 13:24-0500 Body weight 76.66 kg Pierce Patel MD Work Phone: [facility] 07-19-2023 13:24-0500 Diastolic blood pressure 70 mm[Hg] Pierce Patel MD Work Phone: [facility] 07-19-2023 13:24-0500 Heart rate 62 /min Pierce Patel MD Work Phone: [facility] 07-19-2023 13:24-0500 SaO2% (BldA) [Mass fraction] 94 % Pierce Patel MD Work Phone: [facility] 07-19-2023 13:24-0500 Systolic blood pressure 140 mm[Hg] Pierce Patel MD Work Phone: [facility] 11-03-2022 11:50-0400 Body temperature 97.7 [degF] MD Pierce Patel Work Phone: [facility] 11-03-2022 11:50-0400 Diastolic blood pressure 75 mm[Hg] MD Pierce Patel Work Phone: [facility] 11-03-2022 11:50-0400 Heart rate 62 /min MD Pierce Patel Work Phone: [facility] 11-03-2022 11:50-0400 Respiratory rate 16 /min MD Pierce Patel Work Phone: [facility] 11-03-2022 11:50-0400 SaO2% (BldA) [Mass fraction] 94 % MD Pierce Patel Work Phone: [facility] 11-03-2022 11:50-0400 Systolic blood pressure 121 mm[Hg] MD Pierce Patel Work Phone: [facility] 11-03-2022 05:52-0400 Body weight 76.4 kg MD Pierce Patel Work Phone: [facility] 11-02-2022 10:30-0400 Body height 157.48 cm MD Pierce Patel Work Phone: [facility] 11-01-2022 09:35-0400 Inhaled oxygen flow rate 6 L/min MD Pierce Patel Work Phone: [facility] 11-01-2022 06:51-0400 Body mass index (BMI) [Ratio] 31 kg/m2 MD Pierce Patel Work Phone: [facility] 04-14-2021 16:00-0400 Body height 152.4 cm He Shook II Other [facility] Other 04-14-2021 16:00-0400 Body mass index (BMI) [Ratio] 33.98 kg/m2 He [facility] Other [facility] Other 04-14-2021 16:00-0400 Body weight 78.93 kg He Shook II Other [facility] Other 04-14-2021 16:00-0400 Respiratory rate 18 /min He Shook II Other [facility] Other 04-14-2021 16:00-0400 SaO2% (BldA) [Mass fraction] 98 % He [facility] Other [facility] Other Encounters Encounter Date Encounter Type Care Provider Facility Start: 04-03-2024 End: 04-03-2024 Bambodaniel flowsgopi Patel MD Work Phone: [facility] Start: 04-03-2024 End: 04-03-2024 Massimo Patel MD Work Phone: [facility] Start: 04-03-2024 End: 04-03-2024 ambulatory PIERCE PATEL Not Available Start: 04-03-2024 End: 04-03-2024 Office outpatient visit 25 minutes Pierce Patel MD Work Phone: [facility] Comment on above: Type 2 diabetes jayla itus with hyperglycemia, without long-term current use of insulin ([facility]) (Primary Dx); Osteoarthrosis, generalized, involving multiple sites; Diabetic polyneuropathy associated with type 2 diabetes mellitus ([facility]); Edema of both legs; Gastroesophageal reflux disease without esophagitis; Immunodeficiency due to conditions classified elsewhere ([facility]) Start: 03-25-2024 End: 03-25-2024 Refill Pierce Patel MD Work Phone: [facility] Comment on above: Diabetic polyneuropa thy associated with type 2 diabetes mellitus ([facility]/HCC) Start: 03-19-2024 End: 03-19-2024 Bamboo flowsheet Nicole Mitchell [employer] Work Phone: [facility] Start: 03-19-2024 End: 03-19-2024 Bamboo flowsheet Nicole Salazar Aplaysha [employer] Work Phone: [facility] Start: 03-19-2024 End: 03-19-2024 ambulatory NICOLE MITCHELL Not Available Start: 03-19-2024 End: 03-19-2024 Office outpatient visit 25 minutes Nicole Mitchell [employer] Work Phone: [facility] Comment on above: Right knee pain, uns pecified chronicity (Primary Dx); Arthritis of right knee Start: 01-02-2024 End: 01-02-2024 ambulatory PIERCE PATEL Not Available Start: 10-03-2023 End: 10-03-2023 ambulatory NICOLE Martin APLING Not Available Start: 10-01-2023 End: 10-01-2023 ambulatory PIERCE PATEL Not Available Start: 07-19-2023 Bamboo flowsheet Pierce Patel MD Work Phone: [facility] Start: 07-19-2023 Bamboo flowsheet Pierce Patel MD Work Phone: [facility] Start: 07-19-2023 End: 07-19-2023 Office outpatient visit 15 minutes Pierce Patel MD Work Phone: [facility] Comment on above: Diabetic polyneuropa thy associated with type 2 diabetes mellitus (CMS/HCC) (Primary Dx); Type 2 diabetes mellitus with hyperglycemia, without long-term current use of insulin ([facility]) Start: 07-19-2023 End: 07-19-2023 ambulatory PIERCE PATEL Not Available Start: 07-02-2023 End: 07-07[facility] Start: 07-02-2023 Encounter for other preprocedural examination LYNN [facility] Start: 12-21-2022 Postop follow up vis it related to original px Marcia Bolden [facility] Start: 12-21-2022 End: 12-21-2022 ambulatory MD Pierce Patel Work Phone: [facility] Work Phone: Start: 12-21-2022 End: 12-21-2022 Patient encounter procedure MD Pierce Patel Work Phone: [facility] Start: 11-09-2022 End: 11-09-2022 ambulatory Marcia Bolden Facility:[facility] Start: 11-09-2022 Postop follow up vis it related to original px Marcia Bolden [facility] Start: 11-09-2022 End: 11-09-2022 ambulatory MD Pierce Patel Work Phone: [facility] Work Phone: Start: 11-09-2022 End: 11-09-2022 Patient encounter procedure MD Pierce Patel Work Phone: [facility] Start: 11-01-2022 End: 11-03-2022 ambulatory Mino Olexa Facility:[facility] Start: 11-01-2022 End: 11-03-2022 Admission to same day surgery center MD Pierce Patel Work Phone: [facility] Start: 10-16-2022 End: 10-16-2022 ambulatory Mino Olexa Facility:[facility] Start: 10-16-2022 End: 10-16-2022 ambulatory MD Pierce Patel Work Phone: [facility] Work Phone: Start: 10-16-2022 End: 10-16-2022 Patient encounter procedure MD Pierce Patel Work Phone: [facility] Work Phone: Start: 10-10-2022 End: 10-10-2022 ambulatory Mino Jaimes Other [facility] Other Start: 10-10-2022 Office outpatient ne w 45 minutes Mino Jaimes [facility] Start: 10-08-2022 End: 10-08-[address] PIERCE PATEL Facility:[facility] Start: 08-17-2022 End: 08-18-[address] PIERCE PATEL Facility:[facility] Start: 02-16-2022 End: 02-17-[address] PIERCE PATEL Facility:[facility] Start: 10-31-2021 End: 11-01-[address] PIERCE PATEL Facility:[facility] Start: 04-14-2021 End: 04-14-2021 ambulatory He Shook II Other [facility] Other Start: 04-14-2021 Office outpatient ne w 30 minutes He Shook II [facility] Procedures Date Procedure Procedure Detail Performing Clinician Start: 03-19-2024 Arthrocentesis aspir &/inj major jt/bursa w/o us Nicole B Apling [employer] Work Phone: Start: 12-21-2022 Plain X-ray of left shoulder MD Pierce Patel Work Phone: Start: 11-09-2022 Plain X-ray of left shoulder MD Pierce Patel Work Phone: Start: 11-01-2022 Plain X-ray of left shoulder MD Pierce Patel Work Phone: Start: 11-01-2022 Prosthetic total arthroplasty of left shoulder MD Pierce Patel Work Phone: Plan of Treatment Date Care Activity Detail Author Start: 12-26-2025 Glaucoma screening Diabetes: R etinopathy Screening [facility] Start: 04-03-2025 Medicare Annual Wellness (AWV) Medicare Annual Wellness (AWV) [facility] Start: 10-04-2024 Urine screening for protein Diabetes: Urine Protein Screening [facility] Start: 07-01-2024 End: 07-01-2024 Patient encounter procedure 07/01/2024 1:30 PM EST [facility] [address] [place] [id number] Pierce Patel MD [address] [place] [phone] [facility] Start: 04-05-2024 Hemoglobin A1c measurement Diabetes: Hemoglobin A1C [facility] Start: 04-03-2024 End: 04-03-2025 Hemoglobin A1c/Hemoglobin.total in Blood Hemoglobin A1c Lab Routine Type 2 diabetes mellitus with hyperglycemia, without long-term current use of insulin ([facility]) Expected: 04/03/2024 (Approximate), Expires: 04/03/2025 [facility] Work Phone: Comment on above: Expected: 04/03/2024 (Approximate), Expires: 04/03/2025 Start: 04-03-2024 End: 04-03-2024 Patient encounter procedure 04/03/2024 1:00 PM EDT Office Visit [facility] [address] [place] [address] Pierce Patel MD [address] [place] [phone] [facility] Start: 04-02-2024 End: 04-02-2024 Patient encounter procedure 04/02/2024 1:15 PM EDT Office Visit [facility] [address] [place] [address] Nicole Mitchell NP [address] [place] [address] [facility] Start: 02-10-2024 Influenza vaccination Influenza Vacc ine (#1) [facility] Start: 09-18-2023 End: 09-18-2023 Patient encounter procedure 09/18/2023 2:45 PM EDT Office Visit [facility] [address] [place] [phone] Pierce Patel MD [address] [place] [address] [facility] Start: 07-19-2023 End: 07-19-2023 Patient encounter procedure 07/19/2023 1:15 PM EST Office Visit [facility] [address] [place] [address] Pierce Patel MD [address] [place] [address] Arrived [facility] Comment on above: Arrived Start: 11-01-2022 End: 11-01-2022 [facility] Start: 1954 Urine screening for protein Diabetes: Urine Protein Screening [facility] Start: 1945 Glaucoma screening Diabetes: R etinopathy Screening [facility] Start: 1935 Hemoglobin A1c measurement Diabetes: Hemoglobin A1C [facility] Start: 1935 Medicare Annual Wellness (AWV) Medicare Annual Wellness (AWV) [facility] Patient referral [facility] Work Phone: Immunizations Immunization Date Immunization Notes Care Provider Fa [facility] 02-27-2023 influenza virus vaccine, unspecified formulation Nicole Mitchell NP Work Phone: [facility] 04-13-2021 COVID-19 mRNA Comirsanjuanita (Pfizer) MD Pierce Patel Work Phone: [facility] 09-14-2020 COVID-19 Luis Mason (Pfizer) MD Pierce Patel Work Phone: [facility] 08-24-2020 COVID-19 Luis Mason (Pfizer) MD Pierce Patel Work Phone: [facility] Payers Date Payer Category Payer Self-pay [id number] 2021 Medicaid [employer] MEDICARE A DVANTAGE [id number] 2021 Medicare AETNA MEDICARE A DVANTAGE AETNA MEDICARE REPLACEMENT [id number] 2021-Present [address] [place] [address] [id number] 1959 Medicare [id number] 1959 Medicare [id number] [id number] 1937 Unknown [id number] [id number] 1937 Unknown [id number] [id number] 1937 Unknown [id number] [id number] 1937 Unknown [id number] [id number] 1937 Unknown [id number] 2.16840.1.651989.3.579.2.175 1937 Unknown [id number] 2.16840.1.177211.3.579.2.1259 1937 Unknown [id number] 2.16.840.1.106895.3.579.2.1259 1937 Unknown [id number] 2.16.840.1.114868.3.579.2.1258 1937 Unknown [id number] 2.16.840.1.260360.3.579.2.9 1937 Unknown [id number] 2.16.840.1.688819.3.579.2.9 1937 Unknown [id number] 2.16.840.1.504396.3.579.2.1259 1937 Unknown [id number] 2.16.840.1.800547.3.579.2.1259 Unknown [id number] [id number]1 Unknown [id number] 2.16.840.1.068945.3.579.2.531 Unknown [id number] 2.16.840.1.658715.3.579.2.531 Unknown [id number] [id number] Social History Date Type Detail Facility Start: 07-13-2023 End: 04-03-2024 Sex Assigned At [facility] Other Start: 10-16-2022 End: 07-19-2023 Tobacco smoking status WIIS Never smoked tobacco (finding) [facility] Start: 1935 Sex Assigned At Female F [facility] Start: 07-13-2023 End: 04-03-2024 History of Social function [facility] Start: 1935 Sex Assigned At Not on file N [facility] Start: 07-19-2023 Tobacco use and exposure Smokeless tobacco non-user [facility] Start: 01-02-2024 End: 04-03-2024 Alcoholic beverage intake Ex-drinker (finding) [facility] Medical Equipment Procedure Code Equipment Code Equipment Origin al Text Equipment Identifier Dates Arthroplasty, shoulder, total Orthopaedic cement, non-medicated ([id number]( [id number] FDA Start: 11-01-2022 Arthroplasty, shoulder, total Total reverse shoulder prosthesis ()[id number] FDA Start: 11-01-2022 Arthroplasty, shoulder, total Polymer orthopaedic cement restrictor, non-bioabsorbable, sterile [id number] FDA Start: 11-01-2022 Arthroplasty, shoulder, total Total reverse shoulder prosthesis ()[id number]( [id number])[id number] 24 FDA Start: 11-01-2022 Arthroplasty, shoulder, total Total reverse shoulder prosthesis ()[id number]( [id number])[id number] 20 FDA Start: 11-01-2022 Arthroplasty, shoulder, total Total reverse shoulder prosthesis ()[id number]( 17)[id number])[id number] 99 FDA Start: 11-01-2022 Arthroplasty, shoulder, total Total reverse shoulder prosthesis [id number]( [id number])[id number] 76 FDA Start: 11-01-2022 Arthroplasty, shoulder, total Total reverse shoulder prosthesis ()[id number]( [id number] FDA Start: 11-01-2022 Arthroplasty, shoulder, total Total reverse shoulder prosthesis ()[id number]( 10)[id number] FDA Start: 11-01-2022 Arthroplasty, shoulder, total Total reverse shoulder prosthesis ()[id number]( [id number] FDA Start: 11-01-2022 Arthroplasty, shoulder, total Total reverse shoulder prosthesis ()[id number] FDA Start: 11-01-2022 Start: 10-05-2023 Goals Date Patient Goal Desired Activity /State Functional Status Date Assessment Result Facility 11-03-2022 Functional status 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 Baseline [facility] Work Phone: Mental Status Date Assessment Result Facility 11-03-2022 Cognitive function Cognitive Sta tus Patient at Baseline [facility] Work Phone: Clinical Notes 04-14-2021 to 04-03-2024 Pierce Patel MD - 04/03/2024 1:44 PM EDTeresita Patel MD - 04/03/2024 1:44 PM EDTeresita Patel MD - 04/03/2024 1:44 PM EDTeresita Patel MD - 04/03/2024 1:44 PM EDT Note Date & Type Note Facility 04-03-2024 History of Presen t illness Narrative Associated Problem(s): Type 2 diabetes mellitus with hyperglycemia, without long-term current use of insulin (CMS/HCC) BS elevated and resume actos. Due for A1C. Stick to ADA diet and limit carbs. Associated Problem(s): Osteoarthrosis, generalized, involving multiple sites Pain stable and use celebrex and ultram PRN. Associated Problem(s): Gastroesophageal reflux disease Symptoms controlled with prilosec and continue. Associated Problem(s): Edema of both legs Edema controlled with medication. Elevate legs PRN. Associated Problem(s): Diabetic polyneuropathy (CMS/HCC) Symptoms stable with neurontin and continue. Images from the original note were not included. Subjective Patient ID: Azra Saez is a 88 y.o. female who presents for Follow-up (3m ). Follow up DM, neuropathy, OA, edema, and GERD. Reports BS stable around 170-200. Tries to eat well and stick to ADA diet. Denies signs of elevated BS such as polyuria, polyphagia or polydipsia. Neuropathy tolerable with neurontin. Occasional pain or burning in feet. Numbness and tingling worse with walking and standing. OA stable. Pain in legs, back, arms, and hips. Knee pain getting worse. At times difficult to walk. Frequent popping, clicking, and grinding. Knee unsteady and gives out at times. Hard to get up from sitting. Using celebrex or ultram and helps when needed. Seen by ortho and repeat steroid injection helps. Edema controlled with medication. Mild swelling at end of day and if on feet a lot. Edema improved in am and with elevation. GERD controlled with omeprazole. Denies epigastric pain or burning and not waking up with symptoms. Review of Systems Respiratory: Negative for cough, shortness of breath and wheezing. Cardiovascular: Negative for chest pain and palpitations. Gastrointestinal: Negative for abdominal pain, diarrhea, nausea and vomiting. Genitourinary: Negative for dysuria. Objective Physical Exam Constitutional: General: She is not in acute distress. Appearance: Normal appearance. HENT: Head: Normocephalic. Right Ear: Tympanic membrane normal. Left Ear: Tympanic membrane normal. Eyes: Extraocular Movements: Extraocular movements intact. Pupils: Pupils are equal, round, and reactive to light. Cardiovascular: Rate and Rhythm: Normal rate and regular rhythm. Heart sounds: No murmur heard. No friction rub. No gallop. Pulmonary: Effort: Pulmonary effort is normal. Breath sounds: Normal breath sounds. No wheezing, rhonchi or rales. Abdominal: General: Bowel sounds are normal. There is no distension. Palpations: Abdomen is soft. Tenderness: There is no abdominal tenderness. There is no guarding or rebound. Musculoskeletal: Cervical back: Neck supple. Right lower leg: No edema. Left lower leg: No edema. Neurological: Mental Status: She is alert. Assessment/Plan Problem List Items Addressed This Visit Edema of both legs Edema controlled with medication. Elevate legs PRN. Gastroesophageal reflux disease Symptoms controlled with prilosec and continue. Osteoarthrosis, generalized, involving multiple sites Pain stable and use celebrex and ultram PRN. Relevant Medications celecoxib (CeleBREX) 200 MG capsule Diabetic polyneuropathy (CMS/HCC) Symptoms stable with neurontin and continue. Relevant Medications gabapentin (Neurontin) 100 MG capsule Type 2 diabetes mellitus with hyperglycemia, without long-term current use of insulin (CMS/HCC) - Primary BS elevated and resume actos. Due for A1C. Stick to ADA diet and limit carbs. Relevant Medications pioglitazone (Actos) 45 MG tablet lovastatin (Mevacor) 40 MG tablet Other Relevant Orders Hemoglobin A1c documented in this encounter [facility] 03-19-2024 History of Presen t illness Narrative Associated Order(s): L Inj/Asp: R knee Post-Procedure Diagnose(s): Arthritis of right knee Subjective Patient ID: Azra Saez is a 88 y.o. female. RT Knee (Dr Patel referral) *wants inj and would like numbing spray Presents with cane Last Depo medrol injection 10/03/23 with 25% improvement which lasted less than a week. States pain has progressively been worsening in the past 6 months. 5 years ago (2019) she slipped on ice going down stairs and fx her RT ankle, and she walks with her foot turned in now since then. States this messed up her whole RT leg . Pain anterior lateral, pain is constant. Pain at rest 9/10, and always is. Occas gets a sharp pain. She gets tingling in the knee on and off. Admits ES TYL, prn, with relief. She uses a heating pad with relief. Admits voltaren with relief. Gets stabbing pains in the joint. Admits difficulty walking occas. Denies popping/cracking. Admits clicking, and grinding. Admits giving out sensation when getting stabbing pains. Knee is unsteady and gets giving out sensation occas. Pain with sit to stand. Denies N/T. Admits on and off swelling. TX: celebrex, ultram, PCP 10/01/23, XR NOMS 10/03/23, ES TYL, heated blanket, voltaren, depo medrol injection 10/03/23 Here with friend kai Objective Ortho Exam Knee Musculoskeletal Exam Gait Assistive device: cane Inspection Right Erythema: none Effusion: none Edema: none Ecchymosis: none Alignment: valgus Palpation Right Tenderness: present Lateral joint line: moderate Medial joint line: moderate Range of Motion Right Active extension: 0 Active flexion: 100 L Inj/Asp: R knee on 03/19/2024 1:45 PM Indications: pain Details: 20 G needle, anterolateral approach Medications: 40 mg methylPREDNISolone acetate 40 MG/ML UTILIZING ASEPTIC TECHNIQUE PT GIVEN INJECTION IN RIGHT KNEE, NEUROVASC INTACT S/P INJ, TOLERATED WELL Procedure, treatment alternatives, risks and benefits explained, specific risks discussed. Consent was given by the patient. Assessment/Plan Encounter Diagnoses: ICD-10-CM 1. Right knee pain, unspecified chronicity M25.561 2. Arthritis of right knee M17.11 Discussion of options, pt notes she would like an injection, side effects of bleeding and infection discussed, would like to proceed with the injection, using aspectic technique 40 mg of depo medrol was injected into the right lateral knee, pt tolerated well, bandaid applied, may do activities as tolerated, f/u in 2 weeks. documented in this encounter [facility] 07-19-2023 History of Presen t illness Narrative Associated Problem(s): Diabetic polyneuropathy (CMS/HCC) Continued neuropathy and continue neurontin. Form for diabetic shoes completed. Associated Problem(s): Type 2 diabetes mellitus with hyperglycemia, without long-term current use of insulin (CMS/HCC) Reports BS elevated and due for labs. Stick to ADA diet and limit carbs. Subjective Patient ID: Azra Saez is a 87 y.o. female who presents for Follow-up (Diabetic shoe). Patient needs a new pair of diabetic shoes. History of neuropathy and severe pain and burning in feet. Frequent itching and at night symptoms worse. Pain increased with walking and standing. Taking neurontin and helps. Old pair of shoes worn. Not checking BS often but BS often elevated. BS 400 this am. Tries to eat well and stick to ADA diet. Denies signs of elevated BS such as polyuria, polyphagia or polydipsia. Review of Systems Respiratory: Negative for cough, shortness of breath and wheezing. Cardiovascular: Negative for chest pain and palpitations. Gastrointestinal: Negative for abdominal pain, diarrhea, nausea and vomiting. Genitourinary: Negative for dysuria. Objective Physical Exam Constitutional: General: She is not in acute distress. Appearance: Normal appearance. HENT: Head: Normocephalic. Right Ear: Tympanic membrane normal. Left Ear: Tympanic membrane normal. Eyes: Extraocular Movements: Extraocular movements intact. Pupils: Pupils are equal, round, and reactive to light. Cardiovascular: Rate and Rhythm: Normal rate and regular rhythm. Heart sounds: No murmur heard. No friction rub. No gallop. Pulmonary: Effort: Pulmonary effort is normal. Breath sounds: Normal breath sounds. No wheezing, rhonchi or rales. Abdominal: General: Bowel sounds are normal. There is no distension. Palpations: Abdomen is soft. Tenderness: There is no abdominal tenderness. There is no guarding or rebound. Musculoskeletal: Cervical back: Neck supple. Right lower leg: No edema. Left lower leg: No edema. Neurological: Mental Status: She is alert. Comments: Monofilament exam shows decreased sensation over bilateral 1st toes and head of 1st metatarsal bones Assessment/Plan Problem List Items Addressed This Visit Diabetic polyneuropathy ([facility]) - Primary Continued neuropathy and continue neurontin. Form for diabetic shoes completed. Type 2 diabetes mellitus with hyperglycemia, without long-term current use of insulin ([facility]) Reports BS elevated and due for labs. Stick to ADA diet and limit carbs. 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 Instructed on progressive motion and strengthening exercises with PT. May discontinue use of the sling. Call with questions/concer ns. Dec, Primary osteoarthriti s, left shoulder (ICD-10 - M19.012) [facility] Other 06-01-2023 Evaluation note* Encounter Date Diagnosis Assessment Notes Treatment Notes Treatment Clinical Notes Nov, Displaced comminuted fracture of shaft of humerus, left arm, initial encounter for closed fracture (ICD-10 - S42.352A) X-rays of the left shoulder were reviewed with the patient today, along with a physical examination. Patient is to continue with pendulum exercises. 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 We discussed that the best outcome for the patient would be a reverse total shoulder.to significant displacement of the greater tuberosity. We discussed nonoperative treatment is possible however I would expect very limited functional elevation after healing, and the possibility of nonunion is definitely present.At this time, the patient would like to discuss the surgery with her family, she will call when she makes a decision. October, Primary osteoarthritis, left shoulder (ICD-10 - M19.012) [facility] Other 04-30-2023 NotePROCEDURE: XR SHOULDER LT 2V or > DATE: 10/08/2022 9:34 AM CDT COMPARISONS: No previous exams. CLINICAL INDICATION: Pain FINDINGS: There is diffuse bone demineralization. There is comminuted fracture of the proximal left humerus. This includes a comminuted transverse fracture through the surgical neck. With respect to the surgical neck fracture, the dominant distal fracture fragment is displaced in the medial direction approximately 5 mm with respect to the dominant proximal fracture fragment.. There is also a distracted fracture of the greater tuberosity. Fracture fragment measures 2.5 to 3 cm in greatest dimension. It is distracted a few millimeters. The humeral head articular surface appears to approximate the glenoid. There is no definite evidence of glenoid fracture. IMPRESSION: Comminuted proximal humerus fracture as discussed above. . Electronically authenticated by: ELENO REDDY Date: 2022-10-08 11:06[facility]05-23-2022 NotePROCEDURE: XR SHOULDER RT 2V or > HISTORY: Pain of right shoulder joint after falling COMPARISON: None. FINDINGS: BONES:Irregularity along the undersurface of the glenoid; fracture fragment versus degenerative osteophytes. Narrowing of the acromioclavicular joint with degenerative spurring along the undersurface of the acromion process. SOFT TISSUES:No visible soft tissue swelling. EFFUSION:None visible. OTHER: Negative. IMPRESSION: 1. Inferior rim fracture of the glenoid versus degenerative osteophytes causing atypical appearance. Consider CT imaging of the shoulder for further evaluation. 2. Degenerative changes of acromioclavicular joints and acromion process which would predispose to rotator cuff injury. Electronically authenticated by: DELMI ALVAREZ Date: 2021-10-31 17:02[facility]11-04-2021 Evaluation note* Encounter Date Diagnosis Assessment Notes Treatment Notes Treatment Clinical Notes Apr, Primary osteoarthritis of right knee (ICD-10 - M17.11) The patient is suffering from degenerative arthritis involving the knee. We discussed the conservative treatment options which can be beneficial in relieving pain, including gentle non-impact motion exercise and non-steroidal anti-inflammatory medication. We discussed the use of occasional cortisone injections that can provide pain relief as well as hyaluronan lubricant injection. 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 We discussed the conservative treatment options which can be beneficial in relieving pain, including gentle non-impact motion exercise and non-steroidal anti-inflammatory medication. We discussed the use of occasional intra-articular cortisone injections that can provide pain relief. Apr, Other 1. Had a long discussion with the patient and her [id number] who is here at the encounter today regarding the etiology of her right knee pain. She has right knee osteoarthritis but she is not attempted conservative management completely. 2. Tylenol: Discussed taking Tylenol (acetaminophen). Recommended adjusting their dosing to 1000mg by mouth up to 3 times a day. 3. NSAIDs: Prescribed the patient 15 mg Mobic (meloxicam) to be taken by mouth daily. 4. We had a long discussion with the patient today concerning their right knee osteoarthritis. The radiographs do show osteoarthritis of the left knee. At this time the patient would like to avoid surgical intervention. We did discuss the risk and benefits of surgical versus nonoperative management. The patient would like to proceed with nonoperative management. We discussed that our options include injections, physical therapy, and the consistent use of anti-inflammatories. All 3 of these options, including their risks and benefits, were discussed at length with the patient. 5. Follow up in 3 months. If she still having pain we can consider an injection at that time. [facility] Other Evaluation noteNo assessment information available [facility] Work Phone: Evaluation note* Diagnosis Onset Date Resolution Status Closed fracture of left proximal humerus acute [facility] Work Phone: Evaluation note* Diagnosis Diabetic polyneuropathy associated with type 2 diabetes mellitus ([facility]/HCC)- Primary Type 2 diabetes mellitus with hyperglycemia, without long-term current use of insulin ([facility]) documented in this encounter [facility] HealthcareEvaluation note* Diagnosis Right knee pain, unspecified chronicity- Primary Arthritis of right knee documented in this encounter [facility] HealthcareEvaluation note* Diagnosis Diabetic polyneuropathy associated with type 2 diabetes mellitus ([facility]/HCC)- Primary Type 2 diabetes mellitus with hyperglycemia, without long-term current use of insulin ([facility]) Type 2 diabetes mellitus with hyperglycemia, without long-term current use of insulin ([facility])- Primary Diabetic polyneuropathy associated with type 2 diabetes mellitus ([facility]/HCC) Edema of both legs Edema Osteoarthrosis, generalized, involving multiple sites Generalized osteoarthrosis, involving multiple sites Bilateral primary osteoarthritis of knee Gastroesophageal reflux disease without esophagitis Esophageal reflux Seasonal allergic rhinitis due to pollen Adult hypothyroidism ([facility]) Unspecified hypothyroidism Dyslipidemia ([facility]) Other and unspecified hyperlipidemia Encounter for long-term (current) use of medications Encounter for long-term (current) use of other medications Vitamin D deficiency Type 2 diabetes mellitus with hyperglycemia, without long-term current use of insulin ([facility])- Primary Diabetic polyneuropathy associated with type 2 diabetes mellitus ([facility]) Osteoarthrosis, generalized, involving multiple sites Generalized osteoarthrosis, involving multiple sites Edema of both legs Edema Gastroesophageal reflux disease without esophagitis Esophageal reflux Idiopathic urticaria Adult hypothyroidism ([facility]) Unspecified hypothyroidism Immunodeficiency due to conditions classified elsewhere ([facility]) Diabetic polyneuropathy associated with type 2 diabetes mellitus ([facility]) documented in this encounter [facility] HealthcareEvaluation note* Diagnosis Diabetic polyneuropathy associated with type 2 diabetes mellitus ([facility])- Primary Type 2 diabetes mellitus with hyperglycemia, without long-term current use of insulin ([facility]) Type 2 diabetes mellitus with hyperglycemia, without long-term current use of insulin ([facility])- Primary Diabetic polyneuropathy associated with type 2 diabetes mellitus ([facility]) Edema of both legs Edema Osteoarthrosis, generalized, involving multiple sites Generalized osteoarthrosis, involving multiple sites Bilateral primary osteoarthritis of knee Gastroesophageal reflux disease without esophagitis Esophageal reflux Seasonal allergic rhinitis due to pollen Adult hypothyroidism ([facility]) Unspecified hypothyroidism Dyslipidemia ([facility]) Other and unspecified hyperlipidemia Encounter for long-term (current) use of medications Encounter for long-term (current) use of other medications Vitamin D deficiency Type 2 diabetes mellitus with hyperglycemia, without long-term current use of insulin ([facility])- Primary Diabetic polyneuropathy associated with type 2 diabetes mellitus ([facility]) Osteoarthrosis, generalized, involving multiple sites Generalized osteoarthrosis, involving multiple sites Edema of both legs Edema Gastroesophageal reflux disease without esophagitis Esophageal reflux Idiopathic urticaria Adult hypothyroidism ([facility]) Unspecified hypothyroidism Immunodeficiency due to conditions classified elsewhere ([facility]) Type 2 diabetes mellitus with hyperglycemia, without long-term current use of insulin ([facility])- Primary Osteoarthrosis, generalized, involving multiple sites Generalized osteoarthrosis, involving multiple sites Diabetic polyneuropathy associated with type 2 diabetes mellitus ([facility]) Edema of both legs Edema Gastroesophageal reflux disease without esophagitis Esophageal reflux Immunodeficiency due to conditions classified elsewhere ([facility]) documented in this encounter [facility] HealthcareHistory general Narrative - Reported* Type Description Date Medical History Arthritis Medical History Diabetes Medical History Hypothyroidism Surgical History cholecystectomy [facility] Other History general Narrative - Reported* Type Description Date Medical History Arthritis Medical History Diabetes Medical History Hypothyroidism Medical History Esophageal reflux Medical History hyperlipidemia Surgical History cholecystectomy [facility] Other History general Narrative - Reported* Type Description Date Medical History Arthritis Medical History Diabetes Medical History Hypothyroidism Medical History Esophageal reflux Medical History hyperlipidemia Surgical History cholecystectomy Surgical History Arthrex cemented left reverse t otal shoulder 11/01/22 [facility] Other Summary Purpose Family History No Family History Records Found Relationship Condition Age at Onset Recorded Date/T jag Not Specified Appendicitis Unknown sister Arthritis Unknown Advance Directives No Advanced Directives Records Found Advance Directive Response Recorded Date/ Time Advance Directives No April 19, 2021 9:10am Chief Complaint and Reason for Visit Chief Complaint Shoulder pain Chief Complaint Shoulder pain Shoulder pain Reason for Visit Closed fracture of l eft proximal humerus Chief Complaint Shoulder pain Shoulder pain Z96.612 Reason for Visit Closed fracture of l eft proximal humerus Reason for Referral Specialty Diagnoses / Procedures Referred By Moise werner Referred To Contact Orthopaedic Surgery Diagnoses Arthritis of right knee Procedures L Inj/Asp: R knee Apling, Nicole [facility] [employer] [address] [place] [address] Referral ID Status Reason Start Date Expiration Date V isits Requested Visits Authorized [id number] Authorized 03/19/2024 09/15/2024 1 1 Additional Source Comments REASON FOR VISIT (unrecogniz ed section and content) Reason Comments Follow-up Diabetic shoe Reason Comments Pain Reason Comments Med Refill Reason Comments Follow-up 3m INFORMATION SOURCE (unrecogn ized section and content) DATE CREATED AUTHOR 10/11/2022 [facility] DATE CREATED AUTHOR AUTHOR'S ORGANIZ ATION 01/26/2023 [facility] DATE CREATED AUTHOR AUTHOR'S ORGANIZ ATION 07/08/2023 [facility] DATE CREATED AUTHOR AUTHOR'S ORGANIZ ATION 04/05/2024 [facility] EPIC Care Teams (unrecognized sec tion and content) Team Status: Active Member Role Status Dates Pierce Patel MD Primary Care Provider Active Team Status: Inactive Member Role Status Dates Mino Jaimes MD Attending Provider Active Pierce Patel MD Primary Care Provider Active Team Status: Inactive Member Role Status Dates Pierce Patel MD Primary Care Provider Active Marcia Bolden , [employer]-C Attending Provider Active Caseworker Protective Services Relationship Specialty Start Date End Date Pierce Patel MD [address] [place] [address] PCP - General Family Medicine 07/13/23 Caseworker Protective Services Relationship Specialty Start Date End Date Pierce Patel MD [address] [place] [address] PCP - General Family Medicine 07/13/23 Caseworker Protective Services Relationship Specialty Start Date End Date Pierce Patel MD [address] [place] [address] PCP - General Family Medicine 07/13/23 Caseworker Protective Services Relationship Specialty Start Date End Date Pierce Patel MD [address] [place] [address] PCP - General Family Medicine 07/13/23 Caseworker Protective Services Relationship Specialty Start Date End Date Pierce Patel MD [address] [place] [address] PCP - General Family Medicine 07/13/23 Caseworker Protective Services Relationship Specialty Start Date End Date Pierce Patel MD [address] [place] [address] PCP - General Family Medicine 07/13/23 Caseworker Protective Services Relationship Specialty Start Date End Date Pierce Patel MD [address] [place] [address] PCP - General Family Medicine 07/13/23 Goals (unrecognized section and content) Goals may be documented in a n alternate section FOR RECORDS PERTAINING TO PATIENTS WHO ARE OR HAVE BEEN ENROLLED IN A CHEMICAL DEPENDENCY/SUBSTANCEABUSE PROGRAM, SOME INFORMATION MAY BE OMITTED. This clinical summary was aggregated from multiple sources. Caution should be exercised in using it in the provision of clinical care. This summary normalizes information from multiple sources, and as a consequence, information in this document may materially change the coding, format and clinical context of patient data. In addition, data may be omitted in some cases. CLINICAL DECISIONS SHOULD BE BASED ON THE PRIMARY CLINICAL RECORDS. [employer] [facility]. provides no warranty or guarantee of the accuracy or completeness of information in this document.
--- NOTE | 2024-04-06 14:24 | CT_ITS ---
The [address] [address] Patient Name: SAMM HANSEN MRN: [id number] date: 1935 Sex: F Assigned Patient Location: ER Current Patient Location: ER Accession/Order Number: [id number] Exam Date: 04/06/2024 14:45 Report Date: 04/06/2024 15:17 At the request of: GARY TOLBERT Procedure: CT head/brain wo con EXAM: CT head/brain wo con CLINICAL INDICATION: fall COMPARISON: Report only for MRI brain 12/04/2007. TECHNIQUE: Axial CT images of the brain were obtained without contrast. Coronal and sagittal reformats were obtained. Dose reduction techniques were achieved by using automated exposure control and/or adjustment of mA and/or kV according to patient size and/or use of iterative reconstruction technique. FINDINGS: No intracranial hemorrhage, extra-axial fluid collection, hydrocephalus, midline shift, or acute large vessel territory infarction. No other mass effect. Patent basal cisterns. Patchy and confluent periventricular and subcortical hypoattenuation is likely on the basis of chronic microvascular angiopathic changes. Moderate symmetric global volume loss without lobar predominance. Commensurate ventricular system caliber prominence. No calvarial fracture. Normal soft tissues. Paranasal sinuses and mastoid air cells are well-aerated. CT/CT head/brain wo con IMPRESSION: No acute intracranial process. Electronically authenticated by: FRANKIE VILLAGOMEZ Date: 04/06/2024 15:17
[2024-04-06 15:59] VITALS: BP 164/84; PULSE 69; O2SAT 99
--- NOTE | 2024-04-06 15:59 | PC.NURSE ---
Patient fell in shower 3 months ago, intermittent soreness on spot where hit head.
--- NOTE | 2024-04-06 16:04 | ED.MEDCLEAR1 ---
HPI - Medical Clearance General Chief complaint: Medical Clearance Stated complaint: FALL, HEAD INJURY Time Seen by Provider: 04/06/24 14:23 Source: patient and family Mode of arrival: walk-in Limitations: no limitations History of Present Illness HPI Narrative: 88-year-old female presents to the ER with concerns of remote head injury. Patient states in December she slipped in her bathroom striking the right side of her head. She reports mild to moderate pain at that time but symptoms slowly subsided. Patient states she will intermittently get a sensation in the right occipital region of her scalp. She denies any severe headache. She denies any nausea vomiting or vision changes. She denies any dizziness. She denies any neck pain. Patient states she will go several days without anything and then after washing her Head Aggressively shampoo, the symptoms came back. Patient wears a hearing aid. She states the head injury has been weighing on her and she is concerned that she may have a problem with her brain or skull given her fall several months ago. She has no evidence of ataxia. Patient states she recently saw her family doctor but forgot to mention it because she was not having symptoms that day. Patient appears in no distress. Family present at bedside. She denies any blood thinner use or even aspirin. Related Information Allergies Allergy/AdvReac Type Severity Reaction Status Date / Time No Known Drug Allergies Allergy Verified 04/06/24 13:39 Review of Systems ROS Constitutional Denies: fever or chills Eyes Denies: change in vision, blurry vision, blind spots, light sensitivity or eye discomfort Ears, nose, mouth, and throat Denies: throat pain, neck pain or throat swelling Cardiovascular Denies: chest pain, palpitations, edema or swelling of feet/ankles Respiratory Denies: shortness of breath or cough Gastrointestinal Denies: abdominal pain, nausea or vomiting Genitourinary Denies: painful urination, urinary frequency or urinary urgency Musculoskeletal Denies: back pain, neck pain, extremity pain or muscle weakness Integumentary/Breast Denies: rash Neurological Reports: headache (sensation right occiptial); Denies: numbness in extremities, weakness in extremities, lack of coordination, dizziness, vertigo, confusion, behavioral changes, slurred speech, difficulty communicating thoughts, seizure-like activity or involuntary movements Psychiatric Denies: anxiety, memory loss or difficulty concentrating Hematologic/Lymphatic Denies: easy bruising Exam Narrative Exam Narrative: Vital signs and nurses notes reviewed. The patient is not hypoxic. General: The patient appears well and in no apparent distress. Patient is resting comfortably on cart. Ambulates with a steady gait. Skin: Warm, dry, no pallor noted. The patient has no evidence of rash, petechiae, or purpura noted. Head: Normocephalic, atraumatic, no temporal arterial tenderness, no symptoms present currently but notes sensation in the right occipital region. Neck: Supple, trachea mid-line, no tenderness, no lymphadenopathy. No meningeal signs. No nuchal rigidity. Eye: Pupils are equal, round and reactive to light, EOMI Ears, Nose, Mouth, and Throat: Oral mucosa is moist, TMs are clear bilaterally, no hemotympanum noted. Cardiovascular: Regular Rate and Rhythm Respiratory: Patient is in no distress, no accessory muscle use, lungs are clear to auscultation, no wheezing, rales or rhonchi Back: non-tender, no CVA tenderness Musculoskeletal: normal ROM, no tenderness, no swelling, normal strength 5/5. Normal pulses to radial 2+ bilaterally and 2+ at DP and PT bilaterally and symmetrically. GI: Normal bowel sounds, no tenderness to palpation, no masses appreciated. No rebound, guarding, or rigidity noted. Neurological: A&O x4, normal equal front office specialist strength, n The patient is not ataxic. The patient has normal speech. The patient has normal coordination. . Normal motor and sensory observed. Psychiatric: Cooperative Constitutional Vital Signs, click to edit/add: Last Vital Signs Temp 97.8 F 04/06/24 13:39 Pulse 69 04/06/24 15:59 Resp 18 04/06/24 15:59 BP 164/84 H 04/06/24 15:59 Pulse Ox 99 04/06/24 15:59 O2 Del Method Room Air 04/06/24 13:39 Course Vital Signs Vital signs: Vital Signs Temperature 97.8 F 04/06/24 13:39 Pulse Rate 68 04/06/24 13:39 Respiratory Rate 18 04/06/24 13:39 Blood Pressure 171/83 H 04/06/24 13:39 Pulse Oximetry 100 04/06/24 13:39 Oxygen Delivery Method Room Air 04/06/24 13:39 Temperature 97.8 F 10/27/24 13:39 Pulse Rate 69 04/06/24 15:59 Respiratory Rate 18 04/06/24 15:59 Blood Pressure 164/84 H 04/06/24 15:59 Pulse Oximetry 99 04/06/24 15:59 Oxygen Delivery Method Room Air 04/06/24 13:39 MDM - Medical Clearance MDM Narrative Medical decision making narrative: Patient presents with family for peace of mind. Patient concerned regarding intermittent symptoms right occipital head pain/ sensation status post fall back in December. She ambulates well with a cane. CT of the head was performed given her age, head injury and symptoms. No acute intracranial process. She has no neck pain on exam. We discussed the possibility of occipital neuralgia given the location of her symptoms and recurrence after more aggressive neck movement. She may follow-up with her family doctor but declines the need for any treatment and states she would not even take a Tylenol for her symptoms. Patient feels better knowing that she does not have any bleeding going on in her brain. Head injury instructions discussed. Patient be given name of local neurologist for additional treatment if symptoms persist. Patient very thankful. The patient is to followup with primary care physician in next 2-3 days or to return to the emergency department should any of the signs or symptoms worsen or new symptoms develop. Patient had questions answered. The patient agrees with the following Diagnosis and Treatment plan and the patient will be discharged home. Imaging Data CT scan - head: Radiologist's impression: ITS Impressions Head CT 04/06/24 14:24 IMPRESSION: No acute intracranial process. Electronically authenticated by: FRANKIELito VILLAGOMEZ Date: 04/06/2024 15:17 Discharge Plan Discharge Chief Complaint: Medical Clearance Clinical Impression: Closed head injury, Cervico-occipital neuralgia of right side Patient Disposition: Home, Self-Care Time of Disposition Decision: 16:05 Condition: Good Print Language: Telugu Instructions: Head Injury (ED) Additional Instructions: May need referral to neurologist if symptoms persist. Referrals: Jeremiah Vieira DO [Physician] - Pierce Mandujano MD [Primary Care Provider] - As soon as possible
== END 2024-04-06 16:11 | disposition home or self-care (01) ==
PROVIDERS: Emergency Provider Emergency Medicine; PCP Family Medicine
DX: S09.8XXA Other specified injuries of head, initial encounter (principal); M54.81 Occipital neuralgia; W01.10XA Fall on same level from slipping, tripping and stumbling with subsequent striking against unspecified object, initial encounter
CPT/HCPCS: 70450; 99284

== ENCOUNTER 2024-04-17 12:56 | Outpatient (OUT) | payer MEDICARE, SELFPAY ==
[2024-04-17 13:30] LABS: Estimated Average Glucose 160 mg/dL; Glycohemoglobin A1C 7.2 % (4.5-6.2)
== END 2024-04-17 12:57 | disposition home or self-care (01) ==
LOC: LAB 12:58
PROVIDERS: PCP Family Medicine; Visit Provider Family Medicine
DX: E11.65 Type 2 diabetes mellitus with hyperglycemia (principal)
CPT/HCPCS: 36415; 83036

== ENCOUNTER 2024-05-02 11:35 | Emergency (ER) | payer MEDICARE, SELFPAY ==
[2024-05-02 11:45] VITALS: BP 170/80; PULSE 69; TEMP 36.3; O2SAT 100; BMI 32.0
--- OUTSIDE RECORDS SUMMARY | 2024-05-02 11:45 | XMS_ITS | CCD ---
Author Organization [facility] CliniSynj Care Team Providers Care Finger Grip Machine Operator Name Role Phone Boone KEBEDEHe Unavailable Olexa, [...] Primary Care Provider DAVY Bolden Attending Provider [phone] Marcia Bolden Unavailable Marcia Bolden Admitting Unavailable [...] every 4 hrs for 5 days TACHO: [id number] October, Active aspirin 81 mg chewable tablet (10 sources) Platelet Aggregation Inhibitor, Nonsteroidal Anti-inflammator y Drug End: 04-03-2024 aspirin (Aspirin Childrens) 81 MG chewable tablet Chew 81 mg in the morning. 04/03/2024 Discontinued Blood Glucose Monitoring Suppl (ONE TOUCH ULTRA 2) w/Device kit (8 sources) Start: 10-05-2023 Blood Glucose Monitoring Suppl (ONE TOUCH ULTRA 2) w/Device kit USE DIRECTED to check BLOOD SUGAR DAILY 10/05/2023 Active celecoxib 200 mg oral capsule (13 sources) Nonsteroidal Anti-inflammator y Drug Start: 04-03-2024 take 1 capsule by mouth twice daily as needed for pain celecoxib (CeleBREX) 200 MG capsule Indications: Osteoarthrosis, generalized, involving multiple sites Take 1 capsule (200 mg) by mouth 2 (two) times a day as needed for mild pain 60 capsule 3 04/03/2024 Active Start: 04-03-2024 take 1 capsule by mo [facility] twice daily as needed for pain celecoxib [...] emollient clobetasol propionate 0.5 mg/ml topical cream (18 sources) Corticosteroid Start: 10-16-2022 Clobetasol-Emo llient Active 1 APPLIC TOPICAL Twice daily October 16, 2022 12:00am clobetasol propi ramses (Temovate) 0.05 % emollient cream Apply 1 application topically in the morning and 1 application before bedtime. Active Clobetasol Propi ramses 0.05 % apply to affected area twice a day External for 30 Active furosemide 40 mg oral tablet (11 sources) Loop Diuretic Start: 03-05-2024 take 1 [...] 30 Active glipiZIDE 10 mg oral tablet (18 sources) Sulfonylurea Start: 09-20-2023 take 1 tablet [...] Active levothyroxine sodium 0.075 mg oral tablet (18 sources) l-Thyroxine Start: 01-02-2024 take 1 tablet [...] 30 Active lovastatin 40 mg oral tablet (13 sources) HMG-CoA Reductase Inhibitor Start: 04-03-2024 take [...] hydrochloride 500 mg extended release oral tablet (18 sources) Biguanide Start: 03-05-2024 take 1 tablet [...] omeprazole 20 mg delayed release oral capsule (18 sources) Proton Pump Inhibitor Start: 12-24-2023 take [...] 2022 12:00am pioglitazone 45 mg oral tablet (17 sources) Peroxisome Proliferator Receptor alpha Agonist, Peroxisome [...] Onset: 08-17-2022 Chronic Disorders of lipid metabolism (12 sources) Hyperlipidemia, unspecified; Translations: [Dyslipidemia] Onset: 02-19-2022 07-19-2023 Chronic E Codes: Fall (1 source) Fall on same level, unspecified, initial encounter; Translations: [FALL SAME LEVEL UNSPECIFIED INITIAL] Onset: 10-10-2022 Episodic Esophageal disorders (13 sources) Gastroesophageal reflux disease; Translations: [Gastro-esophageal reflux [...] Translations: [Immunodeficiency due to conditions classified elsewhere (CMS/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] Onset: 04-14-2021 Resolved: 04-14-2021 Chronic Other aftercare (1 source) Other prison (current) drug therapy; Translations: [OTH CORRECTION CURRENT DRUG THERAPY] Onset: 10-10-2022 Episodic Other aftercare (1 source) termite helper (current) use of aspirin; Translations: [CORRECTION CURRENT USE OF ASPIRIN] Onset: 10-10-2022 Episodic Other aftercare (1 source) termite helper (current) use of oral hypoglycemic drugs; Translations: [SYSTEM ANALYST USE ORAL HYPOGLYCEMIC DX] Onset: 10-10-2022 Episodic [...] leg] 03-18-2024 Episodic Other upper respiratory disease (8 sources) Allergic rhinitis due to pollen; Translations: [Allergic rhinitis due to pollen] Onset: 10-01-2023 10-01-2023 Chronic Thyroid disorders (12 sources) Hypothyroidism, unspecified; Translations: [Hypothyroidism] Onset: 02-19-2022 [...] Date Documented Da te Episodic/Chronic Allergic reactions (10 sources) Urticaria; Translations: [Urticaria, unspecified] Onset: 07-19-2023 07-19-2023 Episodic Other aftercare (8 sources) Long-term current use of drug therapy; Translations: [Other prison (current) drug therapy] Onset: 10-01-2023 10-01-2023 Episodic Other non-traumatic joint disorders (4 sources) Pain in right shoulder; Translations: [PAIN IN RIGHT SHOULDER] Onset: 10-31-2021 Episodic Residual codes; unclassified (13 sources) Bilateral lower limb edema; Translations: [Localized edema] Onset: 07-04-2023 07-04-2023 Episodic Results Test Name Value Interpretation Reference Range Facility MLR HEMOGLOBIN A1Con 024 Glucose [Mass/Vol] 160 mg/dL [facility] HbA1c (Bld) [Mass fraction] 7.2 % High 4.5 - 6.2 % [facility] Comment on above: ADA RECOMMENDED LIMI T 4.0 - 6.0 ADA THERAPEUTIC TARGET < 7.0 ACTION SUGGESTED > 7.0 Interpretation and review of laboratory results Abnormal [facility] No Panel Informationon 03-19 Nicole Rebollaring, MANUFACTURED BUILDINGS REPAIRER 03/19/2024 1:46 PM L Inj/Asp: R knee on 03/19/2024 1:45 PM Indications: pain Details: 20 G needle, anterolateral approach Medications: 40 mg methylPREDNISolone acetate 40 MG/ML UTILIZING ASEPTIC TECHNIQUE PT GIVEN INJECTION IN RIGHT KNEE, NEUROVASC INTACT S/P INJ, TOLERATED WELL Procedure, treatment alternatives, risks and benefits explained, specific risks discussed. Consent was given by the patient. [facility] Basic Metabolic Profon 07-03 Anion gap [Moles/Vol] 11 mmol/L Normal 9-17 [facility] Comment on above: Performed By: #### B SANGITA, CBC #### [facility] [email or web address] [address] [place] [address] Marketing Operations Consultant: Edward Franklin MD Calcium [Mass/Vol] 9.4 mg/dL Normal 8.6-10.4 [facility] Comment on above: Performed By: #### B MP, CBC #### [facility] [address] [place] [address] Marketing Operations Consultant: Edward Franklin MD Chloride [Moles/Vol] 102 mmol/L Normal 98-107 [facility] Comment on above: Performed By: #### B MP, CBC #### [facility] [email or web address] [address] [place] [phone] Marketing Operations Consultant: Edward Franklin MD CO2 [Moles/Vol] 29 mmol/L Normal 20-31 [facility] Comment on above: Performed By: #### B SANGITA, CBC #### [address] [address] Marketing Operations Consultant: Edward Franklin MD Creatinine [Mass/Vol] 0.8 mg/dL Normal 0.5-0.9 [facility] Comment on above: Performed By: #### B MP, CBC #### [address] [address] Marketing Operations Consultant: Edward Franklin MD GFR/1.73 sq M.predicted among non-blacks MDRD (S/P/Bld) [Vol rate/Area] mL/min/{1.73_m2} Normal >60 [facility] Comment on above: Result Comment: These results [...] Performed By: #### B SANGITA, CBC #### [address] [address] Marketing Operations Consultant: Edward Franklin MD Glucose [Mass/Vol] 131 mg/dL High 70-99 [facility] Comment on above: Performed By: #### B SANGITA, CBC #### [facility] [email or web address] [address] [place] [address] Marketing Operations Consultant: Edward Franklin MD Potassium [Moles/Vol] 4.5 mmol/L Normal 3.7-5.3 [facility] Comment on above: Performed By: #### B SANGITA, CBC #### [facility] [email or web address] [address] [place] [address] Marketing Operations Consultant: Edward Franklin MD Sodium [Moles/Vol] 142 mmol/L Normal 135-144 [facility] Comment on above: Performed By: #### B MP, CBC #### [address] [address] Marketing Operations Consultant: Edward Franklin MD Urea nitrogen [Mass/Vol] 18 mg/dL Normal 01-31 [facility] Comment on above: Performed By: #### B MP, CBC #### [address] [address] Marketing Operations Consultant: Edward Franklin MD CBCon 07-03-2023 Erythrocyte distribution width (RBC) [Ratio] 13.1 % Normal 11.8-14.4 [facility] Comment on above: Performed By: #### B MP, CBC #### [address] [address] Marketing Operations Consultant: Edward Franklin MD Hematocrit (Bld) [Volume fraction] 35.1 % Low 36.3-47.1 [facility] Comment on above: Performed By: #### B MP, CBC #### [address] [address] Marketing Operations Consultant: Edward Franklin MD Hemoglobin (Bld) [Mass/Vol] 11.5 g/dL Low 11.9-15.1 [facility] Comment on above: Performed By: #### B MP, CBC #### [address] [address] Marketing Operations Consultant: Edward Franklin MD MCH (RBC) [Entitic mass] 31.3 pg Normal 25.2-33.5 [facility] Comment on above: Performed By: #### B MP, CBC #### [address] [address] Marketing Operations Consultant: Edward Franklin MD MCHC (RBC) [Mass/Vol] 32.8 g/dL Normal 28.4-34.8 [facility] Comment on above: Performed By: #### B MP, CBC #### [address] [address] Marketing Operations Consultant: Edward Franklin MD MCV (RBC) [Entitic vol] 95.4 fL Normal 82.6-102.9 [facility] Comment on above: Performed By: #### B MP, CBC #### [address] [address] Marketing Operations Consultant: Edward Franklin MD NRBC Automated 0.0 per 100 WBC Normal 0.0 [facility] Comment on above: Performed By: #### B MP, CBC #### [address] [address] Marketing Operations Consultant: Edward Franklin MD Platelet mean volume (Bld) [Entitic vol] 12.3 fL Normal 8.1-13.5 [facility] Comment on above: Performed By: #### B MP, CBC #### [address] [address] Marketing Operations Consultant: Edward Franklin MD Platelets (Bld) [#/Vol] 216 10*3/uL Normal 138-453 [facility] Comment on above: Performed By: #### B MP, CBC #### [address] [address] Marketing Operations Consultant: Edward Franklin MD RBC (Bld) [#/Vol] 3.68 10*6/uL Low 3.95-5.11 [facility] Comment on above: Performed By: #### B MP, CBC #### [address] [address] Marketing Operations Consultant: Edward Franklin MD WBC (Bld) [#/Vol] 5.4 10*3/uL Normal 3.5-11.3 [facility] Comment on above: Performed By: #### B MP, CBC #### [address] [address] Marketing Operations Consultant: Edward Franklin MD XR shoulder LT min 2V*on XR shoulder LT min 2V* [address] [address] XRay Report Signed Patient: Azra Saez MR#: [id number] : 1935 Acct:[id number] Age/Sex: 87 / F ADM Date: 12/21/22 Loc: [facility] Room: Type: [facility] Attending Dr: Marcia Bolden MANUFACTURED BUILDINGS REPAIRER-C Copies to: COURTNEY Eid Ordering Provider: COURTNEY [...] Vera Croft M.D.12/21/2022 4:44 PM Dictation Location: [place] [address] Transcribed By: [facility] 12/21/22 164 Dictated By: Vera Croft MD 12/21/221641 Signed By: 12/21/22 164 [facility] XR shoulder LT min 2V*on XR shoulder LT min 2V* [facility] Main [address] [address] XRay Report Signed Patient: Azra Saez MR#: [id number] : 1935 Acct:[id number] Age/Sex: 87 / F ADM Date: 11/09/22 Loc: [place] Room: Type: [facility] Attending Dr: Marcia Bolden NP-C Copies to: COURTNEY Eid Ordering Provider: COURTNEY [...] Vera Croft M.D.11/09/2022 3:25 PM Dictation Location: [facility] Transcribed By: [facility] 11/09/22 1525 Dictated By: Vera Croft MD 11/09/22 1523 Signed By: 11/09/22 1525 [facility] Glucose Glucometer (BldC) [M ass/Vol]Ordered By: Mino Jaimes on 11-03-2022 Glucose [Mass/Vol] 131 mg/dL [facility] Comment on above: Random Glucose Refer ence Range is dependent on time and content of last meal. Glucose of more than 200 mg/dL in a nonstressed, ambulatory subject supports the diagnosis of Diabetes Mellitus. Glucose Poct Glucometerson 0 11-03-2022 Commemt1 Glu2: Cleaned Meter [facility] Comment on above: Result Comment: PERF ORMED BY: [facility] [address] [place] [address] PATHOLOGIST HOME MORTGAGE DISCLOSURE ACT SPECIALIST MEENAKSHI LEVINE M.D. Performed By: #### G LULS #### Point of Care testing , Glucose [Mass/Vol] 131 mg/dL Normal [facility] Comment on above: Result Comment: [place] Glucose Reference Range is dependent on time and content of last meal. Glucose of more than 200 mg/dL in a nonstressed, ambulatory subject supports the diagnosis of Diabetes Mellitus. Performed By: #### G LULS #### Point of Care testing , No Panel InformationOrdered By: Mino Jaimes on 11-03-2022 Bedside Glucose Comment Glu2: cleaned meter [facility] Glucose Poct Glucometerson 0 11-01-2022 Commemt1 Glu2: Cleaned Meter Normal [facility] Comment on above: Result Comment: PERF ORMED BY: [place] [address] PATHOLOGIST HOME MORTGAGE DISCLOSURE ACT SPECIALIST MEENAKSHI LEVINE M.D. Performed By: #### G LULS #### Point of Care testing , Glucose [Mass/Vol] 130 mg/dL Normal [facility] Comment on above: Result Comment: [facility] Glucose Reference Range is dependent on time and content of last meal. Glucose of more than 200 mg/dL in a nonstressed, ambulatory subject supports the diagnosis of Diabetes Mellitus. Performed By: #### G LULS #### Point of Care testing , XR shoulder LT min 2V*on XR shoulder LT min 2V* [facility] Main [place] [address] [place] [address] XRay Report Signed Patient: Azra Saez MR#: [id number] : 1935 Acct:[id number] Age/Sex: 87 / F ADM Date: 11/01/22 Loc: [place] Room: Type: [facility] Attending Dr: Mino Jaimes MD Copies to: [...] Vera Croft M.D.11/01/2022 10:29 AM Dictation Location: [facility]- Transcribed By: [facility] 11/01/22 1029 Dictated By: Vera Croft MD 11/01/22 1015 Signed By: 11/01/22 1029 Normal [facility] Automated basophil %Ordered By: Mino Jaimes on 10-16-2022 Basophils/100 WBC (Bld) 0.7 % Normal . [facility] Comment on above: Performed By: #### C BC, BMP #### [address] Automated basophil countOrde red By: Mino Jaimes on 10-16-2022 Basophils (Bld) [#/Vol] 0.0 10*3/uL Normal 0.0-0.2 [facility] Comment on above: Result Comment: PERF ORMED BY: [place] [address] PATHOLOGIST HOME MORTGAGE DISCLOSURE ACT SPECIALIST MEENAKSHI LEVINE M.D. Performed By: #### C BC, BMP #### [address] Automated blood monocyte cou ntOrdered By: Mino Jaimes on 10-16-2022 Monocytes (Bld) [#/Vol] 0.4 10*3/uL Normal 0.0-0.8 [facility] Comment on above: Performed By: #### C BC, BMP #### [address] Automated eosinophil %Ordere d By: Mino Jaimes on 10-16-2022 Eosinophils/100 WBC (Bld) 4.7 % Normal . [facility] Comment on above: Performed By: #### C BC, BMP #### [address] Automated eosinophil countOr dered By: Mino Jaimes on 10-16-2022 Eosinophils (Bld) [#/Vol] 0.3 10*3/uL Normal 0.0-0.45 [facility] Comment on above: Performed By: #### C BC, BMP #### [address] Automated monocyte %Ordered By: Mino Jaimes on 10-16-2022 Monocytes/100 WBC (Bld) 6.9 % Normal . [facility] Comment on above: Performed By: #### C BC, BMP #### [address] Automated neutrophil %Ordere d By: Mino Jaimes on 10-16-2022 Neutrophils/100 WBC (Bld) 72.7 % Normal . [facility] Comment on above: Performed By: #### C BC, BMP #### [address] Basic Metabolic Panelon GFR/1.73 sq M.predicted MDRD (S/P/Bld) [Vol rate/Area] mL/min/{1.73_m2} Normal [facility] Comment on above: Performed By: #### C BC, BMP #### [address] Calcium [Mass/volume] in Ser um or PlasmaOrdered By: Mino Jaimes on 10-16-2022 Calcium [Mass/Vol] 8.6 mg/dL Normal 8.6-10.3 [facility] Comment on above: Result Comment: PERF ORMED BY: [place] [address] PATHOLOGIST HOME MORTGAGE DISCLOSURE ACT SPECIALIST MEENAKSHI LEVINE M.D. Performed By: #### C BC, BMP #### [address] Carbon dioxide, total [Moles /volume] in Serum or PlasmaOrdered By: Mino Jaimes on 10-16-2022 CO2 [Moles/Vol] 26.4 mmol/L Normal 21.0-31.0 [facility] Comment on above: Performed By: #### C BC, BMP #### [address] Chloride [Moles/volume] in S mikyala or PlasmaOrdered By: Mino Jaimes on 10-16-2022 Chloride [Moles/Vol] 102 mmol/L Normal 98-107 [facility] Comment on above: Performed By: #### C BC, BMP #### [address] Complete Blood Count Auto Di ffon 10-16-2022 Mean Corpuscular HGB Conc 34.0 g/dL Normal 32.0-35.0 [facility] Comment on above: Performed By: #### C BC, BMP #### [address] NRBC% 0.0 /100{WBC} Normal 0-0.5 [facility] Comment on above: Performed By: #### C BC, BMP #### [address] Creatinine [Mass/volume] in Serum or PlasmaOrdered By: Mino Jaimes on 10-16-2022 Creatinine [Mass/Vol] 0.88 mg/dL Normal 0.60-1.20 [facility] Comment on above: Performed By: #### C BC, BMP #### [address] ECG 12 lead ECGon 10-16-2022 ECG 12 lead ECG [facility] [place] [address] Electrocardiograph Report Signed Patient: Azra Saez MR#: [id number] : 1935 Acct:[id number] Age/Sex: 87 / F ADM Date: 10/16/22 Loc: [place] Room: Type: [facility] Attending Dr: Mino Jaimes MD Ordering Provider: [...] By Elsa Munroe DO 10/18 1237 Normal [facility] Erythrocyte distribution wid th [Ratio] by Automated countOrdered By: Mino Jaimes on 10-16-2022 Erythrocyte distribution width (RBC) [Ratio] 13.3 % Normal 11.9-15.3 [facility] Comment on above: Performed By: #### C BURKE, BMP #### [place] [address] [place] Erythrocytes [#/volume] in B lood by Automated countOrdered By: Mino Jaimes on 10-16-2022 RBC (Bld) [#/Vol] 3.44 10*6/uL Low 3.60-5.00 [facility] Comment on above: Performed By: #### C BURKE, BMP #### [place] [id number] [facility] Glucose [Mass/volume] in Ser um or PlasmaOrdered By: Mino Jaimes on 10-16-2022 Glucose [Mass/Vol] 152 mg/dL High 70-100 [facility] Comment on above: ADA recommended refe rence rangeRandom Glucose Reference Range is dependent on time and content of last meal. Glucose of more than 200 mg/dL in a nonstressed, ambulatory subject supports the diagnosis of Diabetes Mellitus. Result Comment: [place] Glucose Reference Range is dependent on time and content of last meal. Glucose of more than 200 mg/dL in a nonstressed, ambulatory subject supports the diagnosis of Diabetes Mellitus. ADA recommended reference range Performed By: #### C BC, BMP #### [place] [address] Hematocrit [Volume Fraction] of Blood by Automated countOrdered By: Mino Jaimes on 10-16-2022 Hematocrit (Bld) [Volume fraction] 31.4 % Low 34.0-46.4 [facility] Comment on above: Performed By: #### C BC, BMP #### [address] Hemoglobin [Mass/volume] in BloodOrdered By: Mino Jaimes on 10-16-2022 Hemoglobin (Bld) [Mass/Vol] 10.7 g/dL Low 11.8-15.4 [facility] Comment on above: Performed By: #### C BURKE, BMP #### [address] Leukocytes [#/volume] correc bouchra for nucleated erythrocytes in Blood by Automated counOrdered By: Mino Jaimes on 10-16-2022 WBC corrected for nucl RBC Auto (Bld) [#/Vol] 6.2 10*3/uL 3.8-11.6 [facility] Leukocytes [#/volume] in Blo od by Automated countOrdered By: Mino Jaimes on 10-16-2022 WBC (Bld) [#/Vol] 6.2 10*3/uL Normal 3.8-11.6 [facility] Comment on above: Performed By: #### C BC, BMP #### [place] [address] [place] Lymphocytes [#/volume] in Bl ood by Automated countOrdered By: Mino Jaimes on 10-16-2022 Lymphocytes (Bld) [#/Vol] 0.9 10*3/uL Low 1.00-4.8 [facility] Comment on above: Performed By: #### C BC, BMP #### [place] [address] [place] Lymphocytes/100 leukocytes i n Blood by Automated countOrdered By: Mino Jaimes on 10-16-2022 Lymphocytes/100 WBC (Bld) 15.0 % Normal . [facility] Comment on above: Performed By: #### C BC, BMP #### [address] MCH [Entitic mass] by Automa bouchra countOrdered By: Mino Jaimes on 10-16-2022 MCH (RBC) [Entitic mass] 31.0 pg Normal 24.7-34.3 [facility] Comment on above: Performed By: #### C BC, BMP #### [address] MCHC Auto (RBC) [Mass/Vol]Or dered By: Mino Jaimes on 10-16-2022 MCHC (RBC) [Mass/Vol] 34.0 g/dL 32.0-35.0 [facility] MCV [Entitic volume] by Auto mated countOrdered By: Mino Jaimes on 10-16-2022 MCV (RBC) [Entitic vol] 91.2 fL Normal 80-100 [facility] Comment on above: Performed By: #### C BURKE, BMP #### [address] Neutrophils [#/volume] in Bl ood by Automated countOrdered By: Mino Jaimes on 10-16-2022 Neutrophils (Bld) [#/Vol] 4.5 10*3/uL Normal 1.8-7.7 [facility] Comment on above: Performed By: #### C BC, BMP #### [address] No Panel InformationOrdered By: Mino Jaimes on 10-16-2022 Estimated GFR (CKD-EPI) > 60.0 mL/Min [facility] Creatinine Clearance (Chem N/A [facility] Nucleated erythrocytes [Pres ence] in Blood by Automated countOrdered By: Mino Jaimes on 10-16-2022 Nucleated RBC Auto Ql (Bld) 0.0 /100{WBC} 0-0.5 [facility] Platelet mean volume [Entiti c volume] in Blood by Automated countOrdered By: Mino Jaimes on 10-16-2022 Platelet mean volume (Bld) [Entitic vol] 9.9 fL Normal 6.3-10.7 [facility] Comment on above: Performed By: #### C BC, BMP #### [place] [address] [place] Platelets [#/volume] in Bloo d by Automated countOrdered By: Mino Jaimes on 10-16-2022 Platelets (Bld) [#/Vol] 231 10*3/uL Normal 150-450 [facility] Comment on above: Performed By: #### C BC, BMP #### [place] [address] [place] Potassium [Moles/volume] in Serum or PlasmaOrdered By: Mino Jaimes on 10-16-2022 Potassium [Moles/Vol] 3.8 mmol/L Normal 3.5-5.1 [facility] Comment on above: Performed By: #### C BC, BMP #### [address] Serum or plasma anion gap de terminationOrdered By: Mino Jaimes on 10-16-2022 Anion gap [Moles/Vol] 12.4 mmol/L Normal 6.0-15.0 [facility] Comment on above: Performed By: #### C BC, BMP #### [place] [address] [place] Sodium [Moles/volume] in Ser um or PlasmaOrdered By: Mino Jaimes on 10-16-2022 Sodium [Moles/Vol] 137 mmol/L Normal 136-145 [facility] Comment on above: Performed By: #### C BC, BMP #### [address] Urea nitrogen [Mass/volume] in Serum or PlasmaOrdered By: Mino Jaimes on 10-16-2022 Urea nitrogen [Mass/Vol] 17 mg/dL Normal 7-25 [facility] Comment on above: Performed By: #### C BC, BMP #### [address] SHOULDER LT WO CONon 04-3 [...] by: DARI CARVALHO Date: 2022-10-08 12:57 Normal [facility] GLYCOHEMOGLOBIN A1Con 2022 ADA RECOMMENDATION SEE BELOW Normal [facility] Comment on above: Result Comment: ADA RECOMMENDED LIMIT 4.0 - 6.0 ADA THERAPEUTIC TARGET < 7.0 ACTION SUGGESTED > 7.0 Performed By: #### A 1C ####[facility] [address] [place] [id number] Mccauley Glucose [Mass/Vol] 194 mg/dL Normal [facility] Comment on above: Performed By: #### A 1C ####[facility] [address] [place] [address]Dr. Sandra Mccauley HbA1c (Bld) [Mass fraction] 8.4 % Critically high 4.5-6.2 [facility] Comment on above: Performed By: #### A 1C ####[facility] [address] [place] [address]Dr. Sandra Mccauley VIT D 25-OH [facility]ABC[facility]on 2021 Vitamin D, 25-Hydroxy 30.7 ng/mL Normal 30.0-100.0 [facility] Comment on above: Result Comment: Jayda min D deficiency has been defined by the [place] of [employer] and an Endocrine Society practice guideline as a level of serum 25-OH vitamin D less than 20 ng/mL (1,2). The Endocrine Society went on to further define vitamin D insufficiency as a level between 21 and 29 ng/mL (2). 1. IOM ([place] of [employer]). 2010. Dietary reference intakes for calcium and D. Be [place]: The National Academies Press. 2. Terry MF, Jose David NC, Mary Beth PERALTA, et al. Evaluation, treatment, and prevention of vitamin D deficiency: an Endocrine Society clinical practice guideline. JCEM. 2010; 96(7):1911-30. Performed By: #### V ITADLC #### [facility] [address] [address] [address] Sandra Mccauley MICROALBUMIN URINEon 022 Albumin, Urine 5.9 ug/mL Normal Not Estab. [facility] Comment on above: Performed By: #### M ALBLC #### [facility] [address] [address] [address] Sandra Mccauley CBC AUTO DIFFon 02-16-2022 BASO # 0.0 103/ul Normal 0.0-0.1 [facility] Comment on above: Performed By: #### C BC #### [facility] [id number] Sandra Mccauley Basophils/100 WBC (Bld) 0.9 % Normal 0.2-2.0 [facility] Comment on above: Performed By: #### C BC #### [facility] [address] [address] [address] Sandra Mccauley EO # 0.1 103/ul Normal 0.0-0.7 [facility] Comment on above: Performed By: #### C BC #### [facility] [address] [place] [address] Dr. Sandra Mccauley Eosinophils/100 WBC (Bld) 2.9 % Normal 0.9-7.0 [facility] Comment on above: Performed By: #### C BC #### [facility] [address] [place] [address] Dr. Sandra Mccauley Erythrocyte distribution width (RBC) [Ratio] 12.5 % Normal 11.0-15.0 [facility] Comment on above: Performed By: #### C BC #### [facility] [address] [place] [address] Dr. Sandra Mccauley Hematocrit (Bld) [Volume fraction] 36.3 % Normal 36.0-48.0 [facility] Comment on above: Performed By: #### C BC #### [facility] [address] [place] [address] Dr. Sandra Mccauley Hemoglobin (Bld) [Mass/Vol] 12.1 g/dL Normal 12.0-16.0 [facility] Comment on above: Performed By: #### C BC #### [facility] [address] [place] [address] Dr. Sandra Mccauley IG # 0.02 10e3/ul Normal 0.00-0.03 [facility] Comment on above: Performed By: #### C BC #### [facility] [address] [place] [address] Dr. Sandra Mccauley IG % 0.4 % Normal 0.0-0.5 [facility] Comment on above: Performed By: #### C BC #### [facility] [address] [place] [address] Dr. Sandra Mccauley LYMPH # 1.3 103/ul Normal 1.2-3.8 [facility] Comment on above: Performed By: #### C BC #### [facility] [address] [place] [address] Dr. Sandra Mccauley Lymphocytes/100 WBC (Bld) 28.9 % Normal 20.5-60.0 [facility] Comment on above: Performed By: #### C BC #### [facility] [address] [place] [address] Dr. Sandra Mccauley MANUAL DIFF REQ NO Normal [facility] Comment on above: Performed By: #### C BC #### [facility] [address] [place] [address] Dr. Sandra Mccauley MCH (RBC) [Entitic mass] 31.4 pg Normal 26.7-34.0 [facility] Comment on above: Performed By: #### C BC #### [facility] [address] [place] [address] Dr. Sandra Mccauley MCHC (RBC) [Mass/Vol] 33.3 g/dL Normal 29.9-35.2 [facility] Comment on above: Performed By: #### C BC #### [facility] [address] [place] [address] Dr. Sandra Mccauley MCV (RBC) [Entitic vol] 94.3 fL Normal 81.0-99.0 [facility] Comment on above: Performed By: #### C BC #### [facility] [address] [place] [address] Dr. Sandra Mccauley MONO # 0.5 103/ul Normal 0.3-0.8 [facility] Comment on above: Performed By: #### C BC #### [facility] [address] [place] [address] Dr. Sandra Mccauley Monocytes/100 WBC (Bld) 11.6 % Normal 1.7-12.0 [facility] Comment on above: Performed By: #### C BC #### [facility] [address] [place] [address] Dr. Sandra Mccauley NEUT # 2.5 103/ul Normal 1.4-6.5 [facility] Comment on above: Performed By: #### C BC #### [facility] [address] [place] [address] Dr. Sandra Mccauley Neutrophils/100 WBC (Bld) 55.3 % Normal 43.0-75.0 [facility] Comment on above: Performed By: #### C BC #### [facility] [address] [address] [address] Sandra Mccauley Platelet mean volume (Bld) [Entitic vol] 12.0 fL Normal 9.5-13.5 [facility] Comment on above: Performed By: #### C BC #### [facility] [address] [address] [address] Sandra Mccauley PLT 223 103/ul Normal 150-450 [facility] Comment on above: Performed By: #### C BC #### [facility] [address] [address] [address] Sandra Mccauley RBC 3.85 106/ul Critically low 4.20-5.40 [facility] Comment on above: Performed By: #### C BC #### [facility] [address] [address] [address] Sandra Mccauley WBC 4.5 103/ul Normal 4.0-11.0 [facility] Comment on above: Performed By: #### C BC #### [facility] [address] [address] [address] Sandra Mccauley FREE T3on 02-16-2022 FREE T3 1.92 pg/mlL Critically low 2.18-3.98 [facility] Comment on above: Performed By: #### L IPID, BMP, LIVER, TSH, FT3 ####[facility] [address] [id number]. Sandra Mccauley FREE T4on 02-16-2022 Free T4 [Mass/Vol] 1.20 ng/dL Normal 0.76-1.46 [facility] Comment on above: Performed By: #### F T4 ####[facility] [address] [id number]. Sandra Mccauley GLYCOHEMOGLOBIN A1Con 2021 ADA RECOMMENDATION SEE BELOW Normal [facility] Comment on above: Result Comment: ADA RECOMMENDED LIMIT 4.0 - 6.0 ADA THERAPEUTIC TARGET < 7.0 ACTION SUGGESTED > 7.0 Performed By: #### A 1C ####[facility] [address] [place], [place] [address]QkDr. Sandra Mccauley Glucose [Mass/Vol] 186 mg/dL Normal [facility] Comment on above: Performed By: #### A 1C ####[facility] [address] [place], [place] [address]HgDr. Sandra Mccauley HbA1c (Bld) [Mass fraction] 8.1 % Critically high 4.5-6.2 [facility] Comment on above: Performed By: #### A 1C ####[facility] [address] [place], [place] [address]EbDr. Sandra Mccauley LIPID PROFILEon 02-16-2022 CHOL-HDL RATIO NORM SEE BELOW Normal [facility] Comment on above: Result Comment: 3.3 - 4.4 LOW RISK 4.4 - 7.1 AVERAGE RISK 7.1 - 11.0 MODERATE RISK >11.0 HIGH RISK Performed By: #### L IPID, BMP, LIVER, TSH, FT3 #### [facility] [address] [address] [address] Sandra Mccauley Cholesterol [Mass/Vol] 188 mg/dL Normal <=200 [facility] Comment on above: Performed By: #### L IPID, BMP, LIVER, TSH, FT3 #### [facility] [address] [address] [address] Sandra Mccauley Cholesterol in HDL [Mass/Vol] 43 mg/dL Normal 40-60 [facility] Comment on above: Performed By: #### L IPID, BMP, LIVER, TSH, FT3 #### [facility] [address] [address] [address] Sandra Mccauley Cholesterol in LDL [Mass/Vol] 94.8 mg/dL Normal [facility] Comment on above: Performed By: #### L IPID, BMP, LIVER, TSH, FT3 #### [facility] [address] [id number] [address] Sandra Mccauley Cholesterol.total/Pura sterol in HDL [Mass ratio] 4.4 {ratio} Normal [facility] Comment on above: Performed By: #### L IPID, BMP, LIVER, TSH, FT3 #### [facility] [address] [address] [address] Sandra Mccauley HDL NORMAL > or = 60 mg/dl - LO W CARDIOVASCULAR RISK <40 mg/dl - HIGH CARDIOVASCULAR RISK Normal [facility] Comment on above: Performed By: #### L IPID, BMP, LIVER, TSH, FT3 #### [facility] [address] [address] [address] Sandra Mccauley LDL CALC NORMAL SEE BELOW Normal [facility] Comment on above: Result Comment: <100 mg/dl OPTIMAL 100 - 129 mg/dl NEAR OR ABOVE OPTIMAL 130 - 159 mg/dl BORDERLINE HIGH 160 - 189 mg/dl HIGH >190 mg/dl VERY HIGH Performed By: #### L IPID, BMP, LIVER, TSH, FT3 #### [facility] [address] [address] [address] Sandra Mccauley Triglyceride [Mass/Vol] 251 mg/dL Critically high <=150 [facility] Comment on above: Performed By: #### L IPID, BMP, LIVER, TSH, FT3 #### [facility] [address] [address] [address] Sandra Mccauley VLDL CALC 50.2 mg/dL Normal [facility] Comment on above: Performed By: #### L IPID, BMP, LIVER, TSH, FT3 #### [facility] [address] [address] [address] Sandra Mccauley LIVER PROFILEon 02-16-2022 Albumin [Mass/Vol] 3.7 g/dL Normal 3.4-5.0 [facility] Comment on above: Performed By: #### L IPID, BMP, LIVER, TSH, FT3 #### [facility] [address] [address] [address] Sandra Mccauley Albumin/Globulin [Mass ratio] 1.0 {ratio} Normal [facility] Comment on above: Performed By: #### L IPID, BMP, LIVER, TSH, FT3 #### [facility] [address] [address] [address] Sandra Mccauley ALP [Catalytic activity/Vol] 84 U/L Normal 46-116 [facility] Comment on above: Performed By: #### L IPID, BMP, LIVER, TSH, FT3 #### [facility] [address] [place] [address] Dr. Sandra Mccauley ALT [Catalytic activity/Vol] 37 U/L Normal 14-59 [facility] Comment on above: Performed By: #### L IPID, BMP, LIVER, TSH, FT3 #### [facility] [address] [place] [address] Dr. Sandra Mccauley AST [Catalytic activity/Vol] 21 U/L Normal 15-37 [facility] Comment on above: Performed By: #### L IPID, BMP, LIVER, TSH, FT3 #### [facility] [address] [place] [address] Dr. Sandra Mccauley BILI, CONJUGATED 0.1 mg/dL Normal 0.0-0.2 [facility] Comment on above: Performed By: #### L IPID, BMP, LIVER, TSH, FT3 #### [facility] [address] [place] [address] Dr. Sandra Mccauley Bilirubin [Mass/Vol] 0.4 mg/dL Normal 0.2-1.0 [facility] Comment on above: Performed By: #### L IPID, BMP, LIVER, TSH, FT3 #### [facility] [address] [place] [address] Dr. Sandra Mccauley Globulin (S) [Mass/Vol] 3.6 g/dL Normal T [facility] Comment on above: Performed By: #### L IPID, BMP, LIVER, TSH, FT3 #### [facility] [address] [place] [address] Dr. Sandra Mccauley Protein [Mass/Vol] 7.3 g/dL Normal 6.4-8.2 [facility] Comment on above: Performed By: #### L IPID, BMP, LIVER, TSH, FT3 #### [facility] [address] [place] [address] Dr. Sandra Mccauley PROF CHEM 8 (BAS METB)on Anion gap [Moles/Vol] 10.8 mmol/L Normal [facility] Comment on above: Performed By: #### L IPID, BMP, LIVER, TSH, FT3 #### [facility] [address] [address] [address] Sandra Mccauley Calcium [Mass/Vol] 9.3 mg/dL Normal 8.5-10.1 [facility] Comment on above: Performed By: #### L IPID, BMP, LIVER, TSH, FT3 #### [facility] [address] [address] [address] Sandra Mccauley Chloride [Moles/Vol] 101 mmol/L Normal 98-107 [facility] Comment on above: Performed By: #### L IPID, BMP, LIVER, TSH, FT3 #### [facility] [address] [address] [address] Sandra Mccauley CO2 [Moles/Vol] 29.2 mmol/L Normal 21.0-32.0 [facility] Comment on above: Performed By: #### L IPID, BMP, LIVER, TSH, FT3 #### [facility] [address] [address] [address] Sandra Mccauley Creatinine [Mass/Vol] 0.96 mg/dL Normal 0.55-1.02 [facility] Comment on above: Performed By: #### L IPID, BMP, LIVER, TSH, FT3 #### [facility] [address] [address] [address] Sandra Mccauley EGFR-AF ALBANIAN >60 Normal >=60 [facility] Comment on above: Performed By: #### L IPID, BMP, LIVER, TSH, FT3 #### [facility] [address] [address] [address] Sandra Mccauley EGFR-NON AF ALBANIAN 55 mL/min/1.73m2 Critically low >=60 [facility] Comment on above: Performed By: #### L IPID, BMP, LIVER, TSH, FT3 #### [facility] [address] [address] [address] Sandra Mccauley Glucose [Mass/Vol] 164 mg/dL Critically high 74-106 [facility] Comment on above: Performed By: #### L IPID, BMP, LIVER, TSH, FT3 #### [facility] [address] [address] [address] Sandra Mccauley Potassium [Moles/Vol] 4.0 mmol/L Normal 3.5-5.1 [facility] Comment on above: Performed By: #### L IPID, BMP, LIVER, TSH, FT3 #### [facility] [address] [address] [address] Sandra Mccauley Sodium [Moles/Vol] 137 mmol/L Normal 136-145 [facility] Comment on above: Performed By: #### L IPID, BMP, LIVER, TSH, FT3 #### [facility] [address] [place] [address] Dr. Sandra Mccauley Urea nitrogen [Mass/Vol] 14.0 mg/dL Normal 7.0-18.0 [facility] Comment on above: Performed By: #### L IPID, BMP, LIVER, TSH, FT3 #### [facility] [address] [address] [address] Sandra Mccauley Urea nitrogen/Creatinine [Mass ratio] 14.6 mg/mg Normal [facility] Comment on above: Performed By: #### L IPID, BMP, LIVER, TSH, FT3 #### [facility] [address] [place] [address] Dr. Sandra Mccauley TSHon 02-16-2022 TSH 1.662 uIU/mL Normal 0.358-3.740 [facility] Comment on above: Performed By: #### L IPID, BMP, LIVER, TSH, FT3 #### [facility] [address] [place] [address] Dr. Sandra Mccauley Vital Signs Date Time Vital Sign Value Performing Clinician Facility 04-03-2024 13:14 Body height 157.5 cm Pierce Patel MD Work Phone: [facility] 04-03-2024 13:14040 Body mass index (BMI) [Ratio] 30.91 kg/m2 Pierce Patel MD Work Phone: [facility] 04-03-2024 13:14-0400 Body temperature 95.31 [degF] Pierce Patel MD Work Phone: [facility] 04-03-2024 13:14-0400 Body weight 76.66 kg Pierce Patel MD Work Phone: [facility] 04-03-2024 13:14-0400 Diastolic blood pressure 70 mm[Hg] Pierce Patel MD Work Phone: [facility] 04-03-2024 13:14-0400 Heart rate 68 /min Pierce Patel MD Work Phone: [facility] 04-03-2024 13:14-0400 Respiratory rate 20 /min Pierce Patel MD Work Phone: [facility] 04-03-2024 13:14-0400 SaO2% (BldA) [Mass fraction] 97 % Pierce Patel MD Work Phone: [facility] 04-03-2024 13:14-0400 Systolic blood pressure 140 mm[Hg] Pierce Patel MD Work Phone: [facility] 07-19-2023 13:24-0500 Body height 157.5 cm Pierce Patel MD Work Phone: [facility] 07-19-2023 13:24-0500 Body mass index (BMI) [Ratio] 30.91 kg/m2 Pierce Patel MD Work Phone: [facility] 07-19-2023 13:24-0500 Body temperature 97.5 [degF] Pierce Patel MD Work Phone: [facility] 07-19-2023 13:24-0500 Body weight 76.66 kg Pierce Patel MD Work Phone: [facility] 07-19-2023 13:24-0500 Diastolic blood pressure 70 mm[Hg] Pierce Patel MD Work Phone: [facility] 07-19-2023 13:24-0500 Heart rate 62 /min Pierce Patel MD Work Phone: [facility] 07-19-2023 13:24-0500 SaO2% (BldA) [Mass fraction] 94 % Pierce Patel MD Work Phone: [facility] 07-19-2023 13:24-0500 Systolic blood pressure 140 mm[Hg] Pierce Patel MD Work Phone: [facility] 11-03-2022 11:50-0400 Body temperature 97.7 [degF] MD Pierce Patel Work Phone: [facility] 11-03-2022 11:50-0400 Diastolic blood pressure 75 mm[Hg] MD Pierce Patel Work Phone: [facility] 11-03-2022 11:50-0400 Heart rate 62 /min MD Pierce Patel Work Phone: [facility] 11-03-2022 11:50-0400 Respiratory rate 16 /min MD Pierce Patel Work Phone: [facility] 11-03-2022 11:50-0400 SaO2% (BldA) [Mass fraction] 94 % MD Pierce Patel Work Phone: [facility] 11-03-2022 11:50-0400 Systolic blood pressure 121 mm[Hg] MD Pierce Patel Work Phone: [facility] 11-03-2022 05:52-0400 Body weight 76.4 kg MD Pierce Patel Work Phone: [facility] 11-02-2022 10:30-0400 Body height 157.48 cm MD Pierce Patel Work Phone: [facility] 11-01-2022 09:35-0400 Inhaled oxygen flow rate 6 L/min MD Pierce Patel Work Phone: [facility] 11-01-2022 06:51-0400 Body mass index (BMI) [Ratio] 31 kg/m2 MD Pierce Patel Work Phone: [facility] 04-14-2021 16:00-0400 Body height 152.4 cm He DPSI II Other [employer] Other 04-14-2021 16:00-0400 Body mass index (BMI) [Ratio] 33.98 kg/m2 He Boone II Other [employer] Other 04-14-2021 16:00-0400 Body weight 78.93 kg [employer] Other [employer] Other 04-14-2021 16:00-0400 Respiratory rate 18 /min He DPSI II Other [employer] Other 04-14-2021 16:00-0400 SaO2% (BldA) [Mass fraction] 98 % [employer] Other [employer] Other Encounters Encounter Date Encounter Type Care Provider Facility Start: 04-17-2024 End: 04-17-2024 Clinisync Result Encounter Pierce Patel MD Work Phone: [facility] External Department Unsolicited Start: 04-17-2024 End: 04-17-2024 Clinisync Result Encounter Pierce Patel MD Work Phone: [facility] External [facility] Unsolicited Start: 04-03-2024 End: 04-03-2024 Bamboo flowsheet Pierce Patel MD Work Phone: [facility] Start: 04-03-2024 End: 04-03-2024 Bamboo flowsheet Pierce Patel MD Work Phone: [facility] Start: 04-03-2024 End: 04-03-2024 ambulatory PIERCE PATEL Not Available Start: 04-03-2024 End: 04-03-2024 Office outpatient visit 25 minutes Pierce Patel MD Work Phone: [facility] Comment on above: Type 2 diabetes jayla itus with hyperglycemia, without long-term current use of insulin ([facility]) (Primary Dx); Osteoarthrosis, generalized, involving multiple sites; Diabetic polyneuropathy associated with type 2 diabetes mellitus ([facility]); Edema of both legs; Gastroesophageal reflux disease without esophagitis; Immunodeficiency due to conditions classified elsewhere ([facility]) Start: 03-25-2024 End: 03-25-2024 Refill Pierce Patel MD Work Phone: [facility] Comment on above: Diabetic polyneuropa thy associated with type 2 diabetes mellitus ([facility]) Start: 03-19-2024 End: 03-19-2024 Bamboo flowsheet Nicole Salazar Aplaysha [employer] Work Phone: [facility] Start: 03-19-2024 End: 03-19-2024 Bamboo flowsheet Nicole Salazar Apling [employer] RE[employer] Work Phone: [facility] Start: 03-19-2024 End: 03-19-2024 ambulatory NICOLE Salazar APLING Not Available Start: 03-19-2024 End: 03-19-2024 Office outpatient visit 25 minutes Nicole Mitchell [employer] REPA[employer] Work Phone: [facility] Comment on above: Right knee pain, uns pecified chronicity (Primary Dx); Arthritis of right knee Start: 01-02-2024 End: 01-02-2024 ambulatory PIERCE PATEL Not Available Start: 10-03-2023 End: 10-03-2023 ambulatory NICOLE Salazar APLING Not Available Start: 10-01-2023 End: 10-01-2023 ambulatory PIERCE PATEL Not Available Start: 07-19-2023 Bamboo flowsheet Pierce Patel MD Work Phone: [facility] Start: 07-19-2023 Bamboo flowsheet Pierce Patel MD Work Phone: [facility] Start: 07-19-2023 End: 07-19-2023 Office outpatient visit 15 minutes Pierce Patel MD Work Phone: [facility] Comment on above: Diabetic polyneuropa thy associated with type 2 diabetes mellitus (CMS/HCC) (Primary Dx); Type 2 diabetes mellitus with hyperglycemia, without long-term current use of insulin ([facility]) Start: 07-19-2023 End: 07-19-2023 ambulatory PIERCE PATEL Not Available Start: 07-02-2023 End: 07-07-2023 ambulatory LYNN CROWDER [facility] Start: 07-02-2023 Encounter for other preprocedural examination [facility] Start: 12-21-2022 Postop follow up vis it related to original px Marcia Kimi [facility] Start: 12-21-2022 End: 12-21-2022 ambulatory MD Pierce Patel Work Phone: [facility] Work Phone: Start: 12-21-2022 End: 12-21-2022 Patient encounter procedure MD Pierce Patel Work Phone: [facility] Start: 11-09-2022 End: 11-09-2022 ambulatory Marcia Bolden Facility:[facility] Start: 11-09-2022 Postop follow up vis it related to original px Marcia Kimi [facility] Start: 11-09-2022 End: 11-09-2022 ambulatory MD Pierce Patel Work Phone: [facility] Work Phone: Start: 11-09-2022 End: 11-09-2022 Patient encounter procedure MD Pierce Patel Work Phone: [facility] Start: 11-01-2022 End: 11-03-2022 ambulatory Mino Jaimes Facility:[facility] Start: 11-01-2022 End: 11-03-2022 Admission to same day surgery center MD Pierce Patel Work Phone: [facility] [place] Start: 10-16-2022 End: 10-16-2022 ambulatory Mino Olexa Facility:[facility] Start: 10-16-2022 End: 10-16-2022 ambulatory MD Pierce Patel Work Phone: [facility] Work Phone: Start: 10-16-2022 End: 10-16-2022 Patient encounter procedure MD Pierce Patel Work Phone: [facility] Work Phone: Start: 10-10-2022 End: 10-10-2022 ambulatory Mino Olexa Other [employer] Other Start: 10-10-2022 Office outpatient ne w 45 minutes Mino Olexa [facility] Start: 10-08-2022 End: 10-08-[address] PIERCE PATEL Facility:[facility] Start: 08-17-2022 End: 08-18-[address] PIERCE PATEL Facility:[facility] Start: 02-16-2022 End: 02-17-[address] PIERCE PATEL Facility:[facility] Start: 10-31-2021 End: 11-01-[address] PIERCE PATEL Facility:[facility] Start: 04-14-2021 End: 04-14-2021 ambulatory He Shook II Other [employer] Other Start: 04-14-2021 Office outpatient ne w 30 minutes He Shook II [facility] Procedures Date Procedure Procedure Detail Performing Clinician Start: 04-17-2024 MLR HEMOGLOBIN A1C Pierce Patel MD Work Phone: Start: 03-19-2024 Arthrocentesis aspir &/inj major jt/bursa w/o us Nicole Mitchell NP Work Phone: Start: 12-21-2022 Plain X-ray of [...] 12-26-2025 Glaucoma screening Diabetes: R etinopathy Screening [facility] Start: 04-03-2025 Medicare Annual Wellness (AWV) Medicare Annual Wellness (AWV) [facility] Start: 10-04-2024 Urine screening for protein Diabetes: Urine Protein Screening [facility] Start: 07-01-2024 End: 07-01-2024 Patient encounter procedure 07/01/2024 1:30 PM EST Office Visit [facility] [address] [place] [phone] Pierce Patel MD [address] [place] [phone] [facility] Start: 04-05-2024 Hemoglobin A1c measurement Diabetes: Hemoglobin A1C [facility] Start: 04-03-2024 End: 04-03-2025 Hemoglobin A1c/Hemoglobin.total in Blood Hemoglobin A1c Lab Routine Type 2 diabetes mellitus with hyperglycemia, without long-term current use of insulin ([facility]) Expected: 04/03/2024 (Approximate), Expires: 04/03/2025 [facility] Work Phone: Comment on above: Expected: 04/03/2024 (Approximate), Expires: 04/03/2025 Start: 04-03-2024 End: 04-03-2024 Patient encounter procedure 04/03/2024 1:00 PM EDT Office Visit [facility] [address] [place] [phone] Pierce Patel MD [address] [place] [address] [facility] Start: 04-02-2024 End: 04-02-2024 Patient encounter procedure 04/02/2024 1:15 PM EDT Office Visit [facility] [address] [place] [address] Nicole Mitchell NP [address] [place] [address] [facility] Start: 02-10-2024 Influenza vaccination Influenza Vacc ine (#1) [facility] Start: 09-18-2023 End: 09-18-2023 Patient encounter procedure 09/18/2023 2:45 PM EDT Office Visit [facility] [address] [place] [address] Pierce Patel MD [address] [place] [phone] [facility] Start: 07-19-2023 End: 07-19-2023 Patient encounter procedure 07/19/2023 1:15 PM EST Office Visit [facility] [address] [place] [address] Pierce Patel MD [address] [place] [address] Arrived [facility] Comment on above: Arrived Start: 11-01-2022 End: 11-01-2022 [facility] Start: 1956 Urine screening for protein Diabetes: Urine Protein Screening [facility] Start: 1945 Glaucoma screening Diabetes: R etinopathy Screening [facility] Start: 1935 Hemoglobin A1c measurement Diabetes: Hemoglobin A1C [facility] Start: 1935 Medicare Annual Wellness (AWV) Medicare Annual Wellness (AWV) [facility] Patient referral [facility] Work Phone: Immunizations Immunization Date Immunization Notes Care Provider Grzegorz alcocer 02-27-2023 influenza virus vaccine, unspecified formulation Nicole Mitchell NP Work Phone: [facility] 04-13-2021 COVID-19 Luis Mason (Pfizer) MD Pierce Patel Work Phone: [facility] 09-14-2020 COVID-19 Luis Mason (Pfizer) MD Pierce Patel Work Phone: [facility] 08-24-2020 COVID-19 Luis Mason (Pfizer) MD Pierce Patel Work Phone: [facility] Payers Date Payer Category Payer Self-pay [id number] 2021 Medicaid AETNA MEDICARE A DVANTAGE [id number] 2021 Medicare AETNA MEDICARE A DVANTAGE AETNA MEDICARE REPLACEMENT [id number] 2021-Present [address] [place] [address] [id number] 1959 Medicare [id number] 1959 Medicare [id number]. 1937 Unknown [id number] 2.16.840.1.033089.3.579.2.593 1937 Unknown [id number] 2.16.840.1.386548.3.579.2.593 1937 Unknown [id number] 2.16.840.1.877879.3.579.2.593 1937 Unknown [id number] 2.16.840.1.445465.3.579.2.593 1937 Unknown [id number] 2.16.840.1.579204.3.579.2.175 1937 Unknown [id number] 2.16.840.1.154992.3.579.2.1259 1937 Unknown [id number] 2.16.840.1.646481.3.579.2.1259 1937 Unknown [id number] 2.16.840.1.252752.3.579.2.1259 1937 Unknown [id number] 2.16.840.1.449956.3.579.2.1259 1937 Unknown [id number] 2.16.840.1.202799.3.579.2.1259 1937 Unknown [id number] 2.16.840.1.541917.3.579.2.1259 1937 Unknown [id number] 2.16.840.1.509921.3.579.2.1259 Unknown [id number] 2.16.840.1.099722.3.579.2.531 Unknown [id number] 2.16.840.1.031765.3.579.2.531 Unknown [id number] 2.16.840.1.346222.3.579.2.531 Unknown [id number] 2.16.840.1.846385.3.579.2.531 Social History Date Type Detail Facility Start: 07-13-2023 End: 04-03-2024 Sex Assigned At [facility] Start: 10-16-2022 End: 07-19-2023 Tobacco smoking status NHIS Never smoked tobacco (finding) [facility] Start: 1935 Sex Assigned At Female F [facility] Start: 07-13-2023 End: 04-03-2024 History of Social function [facility] Start: 1935 Sex Assigned At Not on file [facility] Start: 07-19-2023 Tobacco use and exposure Smokeless tobacco non-user [facility] Start: 01-02-2024 End: 04-03-2024 Alcoholic beverage intake Ex-drinker (finding) [facility] Procedure Code Equipment Code Equipment Origin al Text Equipment Identifier Dates Arthroplasty, shoulder, total Orthopaedic cement, non-medicated ()[id number]( [id number] FDA Start: 11-01-2022 Arthroplasty, shoulder, total Total reverse shoulder prosthesis ()[id number] [id number] FDA Start: 11-01-2022 Arthroplasty, shoulder, total Polymer orthopaedic cement restrictor, non-bioabsorbable, sterile ()[id number] [id number] FDA Start: 11-01-2022 Arthroplasty, shoulder, total Total reverse shoulder prosthesis ()[id number] [id number])[id number] 24 FDA Start: 11-01-2022 Arthroplasty, shoulder, total Total reverse shoulder prosthesis ()[id number] [id number])[id number] 20 FDA Start: 11-01-2022 Arthroplasty, shoulder, total Total reverse shoulder prosthesis ()[id number] 17)[id number])22.031 99 FDA Start: 11-01-2022 Arthroplasty, shoulder, total Total reverse shoulder prosthesis ()[id number]( 17)[id number])[id number] 76 FDA Start: 11-01-2022 Arthroplasty, shoulder, total Total reverse shoulder prosthesis ()[id number]( 17)[id number] 12 FDA Start: 11-01-2022 Arthroplasty, shoulder, total Total reverse shoulder prosthesis ()[id number] 13)[id number] FDA Start: 11-01-2022 Arthroplasty, shoulder, total Total reverse shoulder prosthesis ()[id number]( 17)[id number] 68 FDA Start: 11-01-2022 Arthroplasty, shoulder, total Total reverse shoulder prosthesis ()[id number] 17)[id number] 09 FDA Start: 11-01-2022 Start: 10-05-2023 Goals Date Patient Goal Desired Activity /State Functional Status Date Assessment Result Facility 11-03-2022 Functional status 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 Baseline [facility] Work Phone: Mental Status Date Assessment Result Facility 11-03-2022 Cognitive function Cognitive Sta tus Patient at Baseline [facility] Work Phone: Clinical Notes 04-14-2021 to 04-03-2024 Pierce Patel MD - 04/03/2024 1:44 PM EDTMsylwia Patel MD - 04/03/2024 1:44 PM EDTeresita Patel MD - 04/03/2024 1:44 PM EDTMsylwia Patel MD - 04/03/2024 1:44 PM EDT Note Date & Type Note Facility 04-03-2024 History of Presen t illness Narrative Associated Problem(s): Type 2 diabetes mellitus with hyperglycemia, without long-term current use of insulin ([facility]) BS elevated and resume actos. Due for [...] Orders Hemoglobin A1c documented in this encounter [facility] 03-19-2024 History of Presen t illness [...] in 2 weeks. documented in this encounter [facility] 07-19-2023 History of Presen t illness Narrative Associated Problem(s): Diabetic polyneuropathy (CMS/HCC) Continued neuropathy and continue neurontin. Form for diabetic shoes completed. Associated Problem(s): Type 2 diabetes mellitus with hyperglycemia, without long-term current use of insulin ([facility]) Reports BS elevated and due for labs. [...] List Items Addressed This Visit Diabetic polyneuropathy ([facility]) - Primary Continued neuropathy and continue neurontin. Form for diabetic shoes completed. Type 2 diabetes mellitus with hyperglycemia, without long-term current use of insulin ([facility]) Reports BS elevated and due for labs. Stick to ADA diet and limit carbs. 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 [facility] Other Evaluation noteNo assessment information available [facility] Work Phone: Evaluation note* Diagnosis Onset Date Resolution Status Closed fracture of left proximal humerus acute [facility] Work Phone: Evaluation note* Diagnosis Diabetic polyneuropathy associated with type 2 diabetes mellitus ([facility])- Primary Type 2 diabetes mellitus with hyperglycemia, without long-term current use of insulin ([facility]) documented in this encounter [facility]* Diagnosis Right knee pain, unspecified chronicity- Primary Arthritis of right knee documented in this encounter [facility]* Diagnosis Diabetic polyneuropathy associated with type 2 diabetes mellitus ([facility])- Primary Type 2 diabetes mellitus with hyperglycemia, without long-term current use of insulin ([facility]) Type 2 diabetes mellitus with hyperglycemia, without long-term current use of insulin ([facility])- Primary Diabetic polyneuropathy associated with type 2 diabetes mellitus ([facility]) Edema of both legs Edema Osteoarthrosis, generalized, involving multiple sites Generalized osteoarthrosis, involving multiple sites Bilateral primary osteoarthritis of knee Gastroesophageal reflux disease without esophagitis Esophageal reflux Seasonal allergic rhinitis due to pollen Adult hypothyroidism ([facility]) Unspecified hypothyroidism Dyslipidemia ([facility]) Other and unspecified hyperlipidemia Encounter for long-term (current) use of medications Encounter for long-term (current) use of other medications Vitamin D deficiency Type 2 diabetes mellitus with hyperglycemia, without long-term current use of insulin ([facility])- Primary Diabetic polyneuropathy associated with type 2 diabetes mellitus ([facility]) Osteoarthrosis, generalized, involving multiple sites Generalized osteoarthrosis, involving multiple sites Edema of both legs Edema Gastroesophageal reflux disease without esophagitis Esophageal reflux Idiopathic urticaria Adult hypothyroidism ([facility]) Unspecified hypothyroidism Immunodeficiency due to conditions classified elsewhere ([facility]) Diabetic polyneuropathy associated with type 2 diabetes mellitus ([facility]) documented in this encounter [facility]* Diagnosis Diabetic polyneuropathy associated with type 2 diabetes mellitus ([facility])- Primary Type 2 diabetes mellitus with hyperglycemia, without long-term current use of insulin ([facility]) Type 2 diabetes mellitus with hyperglycemia, without long-term current use of insulin ([facility])- Primary Diabetic polyneuropathy associated with type 2 diabetes mellitus ([facility]) Edema of both legs Edema Osteoarthrosis, generalized, involving multiple sites Generalized osteoarthrosis, involving multiple sites Bilateral primary osteoarthritis of knee Gastroesophageal reflux disease without esophagitis Esophageal reflux Seasonal allergic rhinitis due to pollen Adult hypothyroidism ([facility]) Unspecified hypothyroidism Dyslipidemia ([facility]) Other and unspecified hyperlipidemia Encounter for long-term (current) use of medications Encounter for long-term (current) use of other medications Vitamin D deficiency Type 2 diabetes mellitus with hyperglycemia, without long-term current use of insulin ([facility])- Primary Diabetic polyneuropathy associated with type 2 diabetes mellitus ([facility]) Osteoarthrosis, generalized, involving multiple sites Generalized osteoarthrosis, involving multiple sites Edema of both legs Edema Gastroesophageal reflux disease without esophagitis Esophageal reflux Idiopathic urticaria Adult hypothyroidism ([facility]) Unspecified hypothyroidism Immunodeficiency due to conditions classified elsewhere ([facility]) Type 2 diabetes mellitus with hyperglycemia, without long-term current use of insulin ([facility])- Primary Osteoarthrosis, generalized, involving multiple sites Generalized osteoarthrosis, involving multiple sites Diabetic polyneuropathy associated with type 2 diabetes mellitus ([facility]) Edema of both legs Edema Gastroesophageal reflux disease without esophagitis Esophageal reflux Immunodeficiency due to conditions classified elsewhere ([facility]) [facility] this encounter [facility] N[facility]ative - Reported* Type Description Date Medical History Arthritis Medical History Diabetes Medical History Hypothyroidism Surgical History cholecystectomy [employer] Other History general Narrative - Reported* Type Description Date Medical History Arthritis Medical History Diabetes Medical History Hypothyroidism Medical History Esophageal reflux Medical History hyperlipidemia Surgical History cholecystectomy [employer] Other History general Narrative - Reported* Type Description Date Medical History Arthritis Medical History Diabetes Medical History Hypothyroidism Medical History Esophageal reflux Medical History hyperlipidemia Surgical History cholecystectomy Surgical History Arthrex cemented left reverse t otal shoulder 11/01/22 [facility] Other Summary Purpose Family History Relationship Condition Age at Onset Recorded Date/T jag Not Specified Appendicitis Unknown sister Arthritis Unknown Advance Directives Advance Directive Response Recorded Date/ Time Advance [...] right knee Procedures L Inj/Asp: R knee AplNicole olmstead NP [address] [address] Referral ID Status Reason Start Date Expiration Date V isits Requested Visits Authorized [id number] Authorized 03/19/2024 09/15/2024 1 1 Additional Source Comments REASON FOR VISIT (unrecogniz ed section and content) Reason Comments Follow-up Diabetic shoe Reason Comments Pain Reason Comments Med Refill Reason Comments Follow-up 3m INFORMATION SOURCE (unrecogn ized section and content) DATE CREATED AUTHOR 10/11/2022 [facility] DATE CREATED AUTHOR AUTHOR'S ORGANIZ ATION 01/26/2023 [facility] DATE CREATED AUTHOR AUTHOR'S ORGANIZ ATION 07/08/2023 [facility] DATE CREATED AUTHOR AUTHOR'S ORGANIZ ATION 04/05/2024 [facility] EPIC Care Teams (unrecognized sec tion and content) Team Status: Active Member Role Status Dates Pierce Patel MD Primary Care Provider Active Team Status: Inactive Member Role Status Dates Mino Jaimes MD Attending Provider Active Pierce Patel MD Primary Care Provider Active Team Status: Inactive Member Role Status Dates Pierce Patel MD Primary Care Provider Active Marcia Bolden , INGRIS-C Attending Provider Active 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 Specialty Start Date End Date Pierce Patel MD [address] [place] [phone] PCP - General Family Medicine 07/13/23 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 Specialty Start Date End Date Pierce Patel MD [address] [place] [phone] PCP - General Family Medicine 07/13/23 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 Specialty Start Date End Date Pierce Patel MD [address] [place] [phone] PCP - General Family Medicine 07/13/23 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 Specialty Start Date End Date Pierce Patel MD [address] [place] [address] PCP - General Family Medicine 07/13/23 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 Specialty Start Date End Date Pierce Patel MD [address] [place] [address] PCP - [facility] 07/13/23 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 Specialty Start Date End Date Pierce Patel MD [address] [place] [phone] PCP - [facility] 07/13/23 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 Specialty Start Date End Date Pierce Patel MD [address] [place] [phone] PCP - [facility] 07/13/23 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 Specialty Start Date End Date Pierce Patel MD [address] [place] [phone] PCP - [facility] 07/13/23 Goals (unrecognized section and content) Goals [...] BE BASED ON THE PRIMARY CLINICAL RECORDS. [employer] provides no warranty or guarantee of the accuracy or completeness of information in this document.
--- NOTE | 2024-05-02 12:06 | US_ITS ---
The [address] [address] Patient Name: SAMM HANSEN MRN: [id number] date: 1935 Sex: F Assigned Patient Location: ED.MAIN Current Patient Location: ER Accession/Order Number: [id number] Exam Date: 05/02/2024 12:30 Report Date: 05/02/2024 13:11 At the request of: GARY TOLBERT Procedure: US venous doppler LE RT Ultrasound venous duplex scan right lower extremity CLINICAL: Edema TECHNIQUE: [place]-scale, color-flow, and Spectral Doppler examination of the right lower extremity were performed with and without provocative maneuvers. FINDINGS: Sonographic examination of the right lower extremity deep venous system to include the common femoral, superficial femoral and popliteal veins, demonstrates normal compressibility, color-flow, respiratory variation, and augmentation. The origin and proximal segment of the greater saphenous vein also demonstrates normal compression and color-flow. There is normal color-flow in the peroneal, posterior tibial, and anterior tibial veins. There is edema in the soft tissues of the calf benign core. US/US venous doppler LE RT IMPRESSION: No deep venous thrombosis of the right lower extremity. Electronically authenticated by: JEREMY RODRIGUEZ Date: 05/02/2024 13:11
--- NOTE | 2024-05-02 12:07 | XR_ITS ---
[address] [address] Patient Name: SAMM HANSEN MRN: [id number] date: 1935 Sex: F Assigned Patient Location: ER Current Patient Location: ER Accession/Order Number: [id number] Exam Date: 05/02/2024 12:13 Report Date: 05/02/2024 12:30 At the request of: GARY TOLBERT Procedure: XR tibia fibula RT 2V PROCEDURE: XR tibia fibula RT 2V HISTORY: pain ; right lower leg pain, swelling, bruising COMPARISON: XR knee right 08/12/2020 FINDINGS: BONES:Degenerative osteophytes along the articular margins of the knee joint and suspected mild joint space narrowing. Moderate degenerative enthesopathic spurring of the calcaneus. No fracture, dislocation, bone lesion. SOFT TISSUES:Prominent subcutaneous edema. EFFUSION:None visible. OTHER: Negative. XR/XR tibia fibula RT 2V IMPRESSION: 1. Marked subcutaneous edema of uncertain etiology. 2. No acute bone abnormality. Mild degenerative changes. Electronically authenticated by: DELMI ALVAREZ Date: 05/02/2024 12:30
[2024-05-02] MEDS: KETOROLAC TROMETHAMINE 30 MG/ML VIAL 15 MG IM (12:25)
--- NOTE | 2024-05-02 12:42 | ED.EXTPRO1 ---
HPI - Extremity Problem General Chief complaint: Extremity Problem, Nontraumatic Stated complaint: R LEG PAIN/SWELLING Time Seen by Provider: 05/02/24 12:01 Source: patient Mode of arrival: walk-in History of Present Illness HPI Narrative: The patient is coming to us with almost 7 days history of right lower extremity pain that started after she hit her right leg while getting into a truck, mentioned that she had a bruise just below her knee but she has been icing it and not getting better with Tylenol, he mentioned that the pain is so severe sometimes although she is able to ambulate with no difficulty The patient mentioned also that she have swelling in her leg and she want to make sure she does not have any blood clot Related Data Home Medications ?Medication ?Instructions ?Recorded ?Confirmed celecoxib 200 mg capsule 200 mg PO BID 05/02/24 05/02/24 furosemide 40 mg tablet 40 mg PO DAILY 05/02/24 05/02/24 gabapentin 100 mg capsule 100 mg PO BID 05/02/24 05/02/24 glipizide 10 mg tablet 10 mg PO BID 05/02/24 05/02/24 levothyroxine 75 mcg tablet 75 mcg PO DAILY 05/02/24 05/02/24 lovastatin 40 mg tablet 40 mg PO DAILY 05/02/24 05/02/24 metformin 500 mg tablet,extended 500 mg PO BID 05/02/24 05/02/24 release 24 hr omeprazole 20 mg capsule,delayed 20 mg PO DAILY 05/02/24 05/02/24 release pioglitazone 45 mg tablet 45 mg PO DAILY 05/02/24 05/02/24 potassium chloride 20 mEq 20 meq PO DAILY 05/02/24 05/02/24 tablet,extended release Previous Rx's ?Medication ?Instructions ?Recorded diclofenac sodium 50 mg 50 mg PO Q12H PRN pain #10 tabs 05/02/24 tablet,delayed release Allergies Allergy/AdvReac Type Severity Reaction Status Date / Time No Known Drug Allergies Allergy Verified 04/06/24 13:39 Review of Systems ROS Status of ROS 10 or more systems reviewed and unremarkable except as noted in history and below [facility] Medical History (Updated 05/02/24 @ 12:44 by Savannah Starks MD) GERD (gastroesophageal reflux disease) ?K21.9 - Gastro-esophageal reflux disease without esophagitis (ICD-10) HTN (hypertension) ?I10 - Essential (primary) hypertension (ICD-10) Diabetes ?E11.9 - Type 2 diabetes mellitus without complications (ICD-10) Social History Little interest or pleasure in doing things: not at all Feeling down, depressed, or hopeless: not at all Exam Narrative Exam Narrative: Nurses notes and vital signs reviewed and patient is not hypoxic. General: Well-appearing and in no apparent distress. Skin: Warm, dry, no pallor noted. No rash. Head: Normocephalic, atraumatic. Neck: Supple, non-tender. Eye: Pupils are equal, round and EOMI. No scleral icterus. Ears, Nose, Mouth, and Throat: TM are clear, no nasal mucosal hypertrophy. Oral mucosa is moist, no posterior oropharynx erythema, uvula is mid-line Cardiovascular: Regular Rate and Rhythm without murmur, gallop or rub. Respiratory: No accessory muscle use or respiratory distress. Lungs are clear to auscultation, no wheezing, rales or rhonchi Chest Wall: no tenderness Back: No midline thoracic or lumbar vertebral tenderness. No CVA tenderness Musculoskeletal: normal ROM, no calf or popliteal tenderness, right lower extremity there is edema mostly 1+ just below the knee with a bruise just almost 10 cm distal to the knee healing no open wounds, the patient have good anterior tibial pulse she also have edema posteriorly at the calf area with some tenderness on palpation GI: Abdomen is soft, non-distended. Normal bowel sounds. No masses appreciated. No tenderness to palpation. No rebound, guarding, or rigidity noted. Neurological: A&O x4. No cranial nerve dysfunction observed. No truncal ataxia. Moves all extremities. Sensation intact. Psychiatric: Cooperative and interactive. Normal mood and affect. Constitutional Vital Signs, click to edit/add: Last Vital Signs Temp 97.4 F L 05/02/24 11:45 Pulse 69 05/02/24 11:45 Resp 16 05/02/24 11:45 BP 170/80 H 05/02/24 11:45 Pulse Ox 100 05/02/24 11:45 O2 Del Method Room Air 05/02/24 11:45 Course Vital Signs Vital signs: Vital Signs Temperature 97.4 F L 05/02/24 11:45 Pulse Rate 69 05/02/24 11:45 Respiratory Rate 16 05/02/24 11:45 Blood Pressure 170/80 H 05/02/24 11:45 Pulse Oximetry 100 05/02/24 11:45 Oxygen Delivery Method Room Air 05/02/24 11:45 Temperature 97.4 F L 05/02/24 11:45 Pulse Rate 69 05/02/24 11:45 Respiratory Rate 16 05/02/24 11:45 Blood Pressure 170/80 H 05/02/24 11:45 Pulse Oximetry 100 05/02/24 11:45 Oxygen Delivery Method Room Air 05/02/24 11:45 MDM - Extremity (Nontraumatic) MDM Narrative Medical decision making narrative: X-ray of the right lower extremity tibia and fibula showed no acute pathology except for the edema No DVT in the duplex The patient was seen better after being treated with Toradol she had to Mobic stopped in addition to giving her for the next 5 days Voltaren for pain [place] wrap and elevation The patient is to follow up with primary care physician in next 2-3 days or to return to the emergency department should any of the signs or symptoms worsen or new symptoms develop. The patient agrees with the following Diagnosis and Treatment plan and the patient will be discharged home. Discharge Plan Discharge Chief Complaint: Extremity Problem, Nontraumatic Clinical Impression: Contusion of leg Patient Disposition: Home, Self-Care Time of Disposition Decision: 12:44 Condition: Good Prescriptions / Home Meds: New diclofenac sodium 50 mg tablet,delayed release (DR/EC) 50 mg PO Q12H PRN (Reason: pain) Qty: 10 0RF Held celecoxib 200 mg capsule 200 mg PO BID Hold Instructions: Resume on 05/07/24. until done with Voltaren pills No Action furosemide 40 mg tablet 40 mg PO DAILY gabapentin 100 mg capsule 100 mg PO BID glipizide 10 mg tablet 10 mg PO BID levothyroxine 75 mcg tablet 75 mcg PO DAILY lovastatin 40 mg tablet 40 mg PO DAILY metformin 500 mg tablet extended release 24 hr 500 mg PO BID omeprazole 20 mg capsule,delayed release(DR/EC) 20 mg PO DAILY pioglitazone 45 mg tablet 45 mg PO DAILY potassium chloride 20 mEq tablet extended release 20 meq PO DAILY Print Language: Chinese Instructions: Contusion in Adults (ED) Referrals: Pierce Mandujano MD [Primary Care Provider] - 1 week
== END 2024-05-02 13:38 | disposition home or self-care (01) ==
PROVIDERS: Emergency Provider Emergency Medicine; PCP Family Medicine
DX: S80.11XA Contusion of right lower leg, initial encounter (principal); W22.8XXA Striking against or struck by other objects, initial encounter; R60.0 Localized edema
CPT/HCPCS: 73590; 93971; 96372; 99285; J1885

== ENCOUNTER 2024-08-01 14:59 | Outpatient (OUT) | payer MEDICARE, SELFPAY ==
--- OUTSIDE RECORDS SUMMARY | 2024-08-01 15:09 | XMS_ITS | CCD ---
Author Organization [facility] Care Team Providers Care Newsperson Name Role Phone He Shook II Unavailable Olexa, Mino Unavailable AMANDA, DR PIERCE [...] Unavailable DARI CARVALHO Consulting Unavailable ELENO REDDY Unavailable MD Mino Jaimes Attending Provider [phone] MD Pierce Patel Primary Care Provider DAVY [...] Care Unavailable LYNN SARGENT Referring Unavailab le NADERER, PIERCE MOUNA Primary Care UnavailPierce Haddad MD Primary Care Provider [phone] PIERCE PATEL Attending Unavailable PIERCE PATEL Attending Unavailable PIERCE PATEL Attending Unavailable NICOLE MITCHELL Attending Unavailable PIERCE PATEL Referring Unavailable NICOLE MITCHELL Referring Unavailable PIERCE PATEL Attending Unavailable APLING, NICOLE Salazar Attending Unavailable PIERCE PATEL Attending Unavailable Medications [...] every 4 hrs for 5 days TACHO: [id number] October, Active aspirin 81 mg chewable tablet (10 sources) Platelet Aggregation Inhibitor, Nonsteroidal Anti-inflammator y Drug End: 04-03-2024 aspirin (Aspirin Childrens) 81 MG chewable tablet Chew 81 mg in the morning. 04/03/2024 Discontinued Blood Glucose Monitoring Suppl (ONE TOUCH ULTRA 2) w/Device kit (11 sources) Start: 10-05-2023 Blood Glucose Monitoring Suppl (ONE TOUCH ULTRA 2) w/Device kit USE DIRECTED to check BLOOD SUGAR DAILY 10/05/2023 Active celecoxib 200 mg oral capsule (16 sources) Nonsteroidal Anti-inflammator y Drug Start: 04-03-2024 End: 04-03-2024 take 1 capsule by mouth twice daily as needed for pain celecoxib (CeleBREX) 200 MG capsule Indications: Osteoarthrosis, generalized, involving multiple sites Take 1 capsule (200 mg) by mouth 2 (two) times a day as needed for mild pain 60 capsule 3 04/03/2024 Active cephalexin 500 mg oral capsule (2 sources) [...] emollient clobetasol propionate 0.5 mg/ml topical cream (20 sources) Corticosteroid Start: 10-16-2022 Clobetasol-Emo llient Active 1 APPLIC TOPICAL Twice daily October 16, 2022 12:00am clobetasol propi ramses (Temovate) 0.05 % emollient cream Apply 1 application topically in the morning and 1 application before bedtime. Active Clobetasol Propi ramses 0.05 % apply to affected area twice a day External for 30 Active furosemide 40 mg oral tablet (14 sources) Loop Diuretic Start: 03-05-2024 take 1 tablet by mouth in the morning furosemide (Lasix) 40 MG tablet Indications: Edema of both legs TAKE 1 TABLET BY MOUTH IN THE MORNING 30 tablet 5 03/05/2024 Active Start: 07-04-2023 take 1 tablet by jasmine th in the morning furosemide (Lasix) 40 MG tablet Indications: Edema of both legs Take 1 tablet (40 mg) by mouth in the morning. 30 tablet 3 07/04/2023 Active gabapentin 100 mg oral capsule (20 sources) Anti-epileptic Agent Start: 01-02-2024 End: 04-03-2024 take 1 capsule by mouth in the morning gabapentin (Neurontin) 100 MG capsule Indications: Diabetic polyneuropathy associated with type 2 diabetes mellitus (CMS/HCC) Take 1 capsule (100 mg) by mouth in the morning and 1 capsule (100 mg) before bedtime. 04/03/2024 Active Start: 05-07-2023 take 1 capsule by mo [...] 30 Active glipiZIDE 10 mg oral tablet (20 sources) Sulfonylurea Start: 09-20-2023 take 1 tablet [...] 2022 12:00am take 2 tablets by mo ut twice daily glipiZIDE 10 MG take 2 [...] 2022 12:00am take 1 tablet by jasmine three times daily at mealtime as needed Ibuprofen 200 MG 1 tablet with food or milk as needed Orally Three times a day Active levothyroxine sodium 0.075 mg oral tablet (20 sources) l-Thyroxine Start: 01-02-2024 take 1 tablet [...] 30 Active lovastatin 40 mg oral tablet (16 sources) HMG-CoA Reductase Inhibitor Start: 04-03-2024 End: 04-03-2024 take 1 tablet by mouth at bedtime lovastatin (Mevacor) 40 MG tablet Indications: Type 2 diabetes mellitus with hyperglycemia, without long-term current use of insulin (CMS/HCC) Take 1 tablet (40 mg) by mouth at bedtime 90 tablet 3 04/03/2024 Active meloxicam 15 mg oral tablet (4 sources) Nonsteroidal Anti-inflammatory Drug Start: 04-14-2021 take 1 tablet by mouth every twenty-four hours Meloxicam 15 MG 1 tablet Orally Once a day for 30 day(s) Apr, Active 24 hr metFORMIN hydrochloride 500 mg extended release oral tablet (20 sources) Biguanide Start: 03-05-2024 take 1 tablet by mouth twice daily metFORMIN XR (Glucophage-XR) 500 MG 24 hr tablet Indications: Type 2 diabetes mellitus with hyperglycemia (CMS/HCC) TAKE 1 TABLET BY MOUTH TWICE DAILY 60 tablet 5 03/05/2024 Active Start: 10-16-2022 take 500 mg by mouth twice kaltyn ly Metformin Active 500 MG PO Twice daily October 16, 2022 12:00am take 1 tablet by jasmine th in the morning metFORMIN (Glucophage) 500 MG tablet Take 500 mg by mouth in the morning and 500 mg in the evening. Take with meals. 0 Active omeprazole 20 mg delayed release oral capsule (20 sources) Proton Pump Inhibitor Start: 12-24-2023 take 1 capsule by mouth once daily omeprazole (PriLOSEC) [address] capsule Indications: Gastro-esophageal reflux disease without esophagitis TAKE 1 CAPSULE BY MOUTH DAILY 90 capsule 3 12/24/2023 Active Start: 10-16-2022 take 20 mg by mouth once daily at bedtime Omeprazole Active 20 MG PO Daily at bedtime October 16, 2022 12:00am potassium chloride 20 meq extended release oral [...] 40 mg/ml injection (4 sources) Corticosteroid Start: End: methylPREDNISolone acetate (DEPO-Medrol) injection 40 mg Start: 03-19-2024 End: 03-19-2024 40 mg, Intra-articular, Once PRN Procedure, Starting on Sun03/19/24 at 1345, For 1 dose pioglitazone 45 mg oral tablet (20 sources) Peroxisome Proliferator Receptor alpha Agonist, Peroxisome Proliferator Receptor gamma Agonist, Thiazolidinedione Start: 04-03-2024 End: 07-01-2024 take 1 tablet by mouth once daily pioglitazone (Actos) 45 MG tablet Indications: Type 2 diabetes mellitus with hyperglycemia, without long-term current use of insulin ([facility]) Take 1 tablet (45 mg) by mouth Daily 90 tablet 3 04/03/2024 07/01/2024 Discontinued take 1 tablet by mouth once wendy y Problems Active Problems Problem Classification Problem Date Documented Date Episodic/Chronic Diabetes mellitus with complications (20 sources) Type 2 diabetes mellitus with hyperglycemia; Translations: [Polyneuropathy due to diabetes mellitus] Onset: 08-17-2022 Chronic Disorders of lipid metabolism (15 sources) Hyperlipidemia, unspecified; Translations: [Dyslipidemia] Onset: 02-19-2022 07-19-2023 Chronic E Codes: Fall (1 source) Fall on same level, unspecified, initial encounter; Translations: [FALL SAME LEVEL UNSPECIFIED INITIAL] Onset: 10-10-2022 Episodic Esophageal disorders (16 sources) Gastroesophageal reflux disease; Translations: [Gastro-esophageal reflux [...] Translations: [Immunodeficiency due to conditions classified elsewhere ([facility])] 04-03-2024 Chronic Nutritional deficiencies (15 sources) Vitamin D deficiency, unspecified; Translations: [Vitamin D deficiency] Onset: 02-19-2022 07-19-2023 Chronic Osteoarthritis (20 sources) Primary coxarthrosis, bilateral; 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] Onset: 04-14-2021 Resolved: 04-14-2021 Chronic Other aftercare (1 source) Other terminal make up operator (current) drug therapy; Translations: [OTH CHARGE POSTER CURRENT DRUG THERAPY] Onset: 10-10-2022 Episodic Other aftercare (1 source) terminal make up operator (current) use of aspirin; Translations: [CHARGE POSTER CURRENT USE OF ASPIRIN] Onset: 10-10-2022 Episodic Other aftercare (1 source) terminal make up operator (current) use of oral hypoglycemic drugs; Translations: [CHARGE POSTER USE ORAL HYPOGLYCEMIC DX] Onset: 10-10-2022 Episodic [...] leg] 03-18-2024 Episodic Other upper respiratory disease (11 sources) Allergic rhinitis due to pollen; Translations: [Allergic rhinitis due to pollen] Onset: 10-01-2023 10-01-2023 Chronic Residual codes; unclassified (18 sources) Bilateral lower limb edema; Translations: [Localized edema] Onset: 07-04-2023 07-04-2023 Episodic Thyroid disorders (15 sources) Hypothyroidism, unspecified; Translations: [Hypothyroidism] Onset: 02-19-2022 [...] Date Documented Da te Episodic/Chronic Allergic reactions (13 sources) Urticaria; Translations: [Urticaria, unspecified] Onset: 07-19-2023 07-19-2023 Episodic Mood disorders (2 sources) Mood disorders Onset: 07-01-2024 07-01-2024 Other aftercare (11 sources) Long-term current use of drug therapy; Translations: [Other fdc (current) drug therapy] Onset: 10-01-2023 10-01-2023 Episodic Other non-traumatic joint disorders (4 sources) Pain in right shoulder; Translations: [PAIN IN RIGHT SHOULDER] Onset: 10-31-2021 Episodic Results Test Name Value Interpretation Reference Range Facility [facility] HEMOGLOBIN A1Con 024 Glucose [Mass/Vol] 160 mg/dL [facility] HbA1c (Bld) [Mass fraction] 7.2 % High 4.5 - 6.2 % [facility] Comment on above: ADA RECOMMENDED LIMI T 4.0 - 6.0 ADA THERAPEUTIC TARGET < 7.0 ACTION SUGGESTED > 7.0 Interpretation and review of laboratory results Abnormal [facility] No Panel Informationon 03-19 Nicole Mitchell NP 03/19/2024 1:46 PM L Inj/Asp: R knee on 03/19/2024 1:45 PM Indications: pain Details: 20 G needle, anterolateral approach Medications: 40 mg methylPREDNISolone acetate 40 MG/ML UTILIZING ASEPTIC TECHNIQUE PT GIVEN INJECTION IN RIGHT KNEE, NEUROVASC INTACT S/P INJ, TOLERATED WELL Procedure, treatment alternatives, risks and benefits explained, specific risks discussed. Consent was given by the patient. [facility] Basic Metabolic Profon 07-03 Anion gap [Moles/Vol] 11 mmol/L Normal 9-17 [facility] Comment on above: Performed By: #### B SANGITA, CBC #### [facility] [address] [place] [address] [id number] Fried Cake Maker: Edward Franklin MD Calcium [Mass/Vol] 9.4 mg/dL Normal 8.6-10.4 [facility] Comment on above: Performed By: #### B MP, CBC #### [facility] [address] [place] [address] [id number] Fried Cake Maker: Edward Franklin MD Chloride [Moles/Vol] 102 mmol/L Normal 98-107 [facility] Comment on above: Performed By: #### B MP, CBC #### [facility] [address] [place] [id number] Fried Cake Maker: Edward Franklin MD CO2 [Moles/Vol] 29 mmol/L Normal 20-31 [facility] Comment on above: Performed By: #### B MP, CBC #### [facility] [address] [place] [id number] Fried Cake Maker: Edward Franklin MD Creatinine [Mass/Vol] 0.8 mg/dL Normal 0.5-0.9 [facility] Comment on above: Performed By: #### B MP, CBC #### [facility] [address] [place] [phone] Fried Cake Maker: Edward Franklin MD GFR/1.73 sq M.predicted among [...] renal tubular secretion. Performed By: #### B MP, CBC #### [facility] [address] [place] [phone] Fried Cake Maker: Edward Franklin MD Glucose [Mass/Vol] 131 mg/dL High 70-99 [facility] Comment on above: Performed By: #### B MP, CBC #### [facility] [address] [place] [phone] Fried Cake Maker: Edward Franklin MD Potassium [Moles/Vol] 4.5 mmol/L Normal 3.7-5.3 [facility] Comment on above: Performed By: #### B MP, CBC #### [facility] [address] [place] [phone] Fried Cake Maker: Edward Franklin MD Sodium [Moles/Vol] 142 mmol/L Normal 135-144 [facility] Comment on above: Performed By: #### B MP, CBC #### [address] [address] Fried Cake Maker: Edward Franklin MD Urea nitrogen [Mass/Vol] 18 mg/dL Normal 8- [facility] Comment on above: Performed By: #### B MP, CBC #### [address] [address] Fried Cake Maker: Edward Franklin MD CBCon 07-03-2023 Erythrocyte distribution width (RBC) [Ratio] 13.1 % Normal 11.8-14.4 [facility] Comment on above: Performed By: #### B MP, CBC #### [address] [address] Fried Cake Maker: Edward Franklin MD Hematocrit (Bld) [Volume fraction] 35.1 % Low 36.3-47.1 [facility] Comment on above: Performed By: #### B MP, CBC #### [facility] [address] [place] [phone] Fried Cake Maker: Edward Franklin MD Hemoglobin (Bld) [Mass/Vol] 11.5 g/dL Low 11.9-15.1 [facility] Comment on above: Performed By: #### B MP, CBC #### [facility] [address] [place] [address] Fried Cake Maker: Edward Franklin MD MCH (RBC) [Entitic mass] 31.3 pg Normal 25.2-33.5 [facility] Comment on above: Performed By: #### B MP, CBC #### [address] [address] Fried Cake Maker: Edward Franklin MD MCHC (RBC) [Mass/Vol] 32.8 g/dL Normal 28.4-34.8 [facility] Comment on above: Performed By: #### B MP, CBC #### [address] [address] Fried Cake Maker: Edward Franklin MD MCV (RBC) [Entitic vol] 95.4 fL Normal 82.6-102.9 [facility] Comment on above: Performed By: #### B MP, CBC #### [address] [address] Fried Cake Maker: Edward Franklin MD NRBC Automated 0.0 per 100 WBC Normal 0.0 [facility] Comment on above: Performed By: #### B MP, CBC #### [address] [address] Fried Cake Maker: Edward Franklin MD Platelet mean volume (Bld) [Entitic vol] 12.3 fL Normal 8.1-13.5 [facility] Comment on above: Performed By: #### B MP, CBC #### [address] [address] Fried Cake Maker: Edward Franklin MD Platelets (Bld) [#/Vol] 216 10*3/uL Normal 138-453 [facility] Comment on above: Performed By: #### B MP, CBC #### [address] [address] Fried Cake Maker: Edward Franklin MD RBC (Bld) [#/Vol] 3.68 10*6/uL Low 3.95-5.11 [facility] Comment on above: Performed By: #### B MP, CBC #### [address] [address] Fried Cake Maker: Edward Franklin MD WBC (Bld) [#/Vol] 5.4 10*3/uL Normal 3.5-11.3 [facility] Comment on above: Performed By: #### B MP, CBC #### [facility] [address] [place] [address] Fried Cake Maker: Edward Franklin MD XR shoulder LT min 2V*on XR shoulder LT min 2V* [facility] [place] [address] [place] [address] XRay Report Signed Patient: Azra Saez MR#: [id number] : 1935 Acct:[id number] Age/Sex: 87 / F ADM Date: 12/21/22 Loc: [facility] Room: Type: [facility] Attending Dr: Marcia TAYLORC Copies to: COURTNEY [...] Vera Croft M.D.12/21/2022 4:44 PM Dictation Location: [place] [address] Transcribed By: [facility] 12/21/22 5582 Dictated By: Vera Croft MD 12/21/22 935 Signed By: 12/21/22 888 Normal [facility] XR shoulder LT min 2V*on XR shoulder LT min 2V* [facility] [place] [address] [place] [address] XRay Report Signed Patient: Azra Saez MR#: [id number] : 1935 Acct:[id number] Age/Sex: 87 / F ADM Date: 11/09/22 Loc: [facility] Room: Type: [facility] Attending Dr: Marcia Bolden NP-C Copies [...] Vera Croft M.D.11/09/2022 3:25 PM Dictation Location: [place] [address] Transcribed By: [facility] 11/09/22 1525 Dictated By: Vera Croft MD 11/09/22 1523 Signed By: 11/09/22 1525 [facility] Glucose Glucometer (BldC) [M ass/Vol]Ordered By: Mino Jaimes on 11-03-2022 Glucose [Mass/Vol] 131 mg/dL [facility] Comment on above: Random Glucose Refer ence Range is dependent on time and content of last meal. Glucose of more than 200 mg/dL in a nonstressed, ambulatory subject supports the diagnosis of Diabetes Mellitus. Glucose Poct Glucometerson 0 11-03-2022 Commemt1 Glu2: Cleaned Meter [facility] Comment on above: Result Comment: PERF ORMED BY: [address] [address] PATHOLOGIST NEONATAL NURSE MEENAKSHI LEVINE M.D. Performed By: #### G LULS #### Point of Care testing , Glucose [Mass/Vol] 131 mg/dL Normal [facility] Comment on above: Result Comment: [place] Glucose Reference Range is dependent on time and content of last meal. Glucose of more than 200 mg/dL in a nonstressed, ambulatory subject supports the diagnosis of Diabetes Mellitus. Performed By: #### G LULS #### Point of Care testing , No Panel InformationOrdered By: Mino Jaimes on 11-03-2022 Bedside Glucose Comment Glu2: cleaned meter [facility] Glucose Poct Glucometerson 0 11-01-2022 Commemt1 Glu2: Cleaned Meter Normal [facility] Comment on above: Result Comment: PERF ORMED BY: [address] [address] PATHOLOGIST NEONATAL NURSE MEENAKSHI LEVINE M.D. Performed By: #### G LULS #### Point of Care testing , Glucose [Mass/Vol] 130 mg/dL Normal [facility] Comment on above: Result Comment: [place] om Glucose Reference Range is dependent on time and content of last meal. Glucose of more than 200 mg/dL in a nonstressed, ambulatory subject supports the diagnosis of Diabetes Mellitus. Performed By: #### G LULS #### Point of Care testing , XR shoulder LT min 2V*on XR shoulder LT min 2V* [facility] [address] [address] XRay Report Signed Patient: Azra Saez MR#: [id number] : 1935 Acct:[id number] Age/Sex: 87 / F ADM Date: 11/01/22 Loc: [place] Room: Type: [facility] Attending Dr: Mino Jaimes MD Copies to: [...] Vera Croft M.D.11/01/2022 10:29 AM Dictation Location: [facility] Transcribed By: [facility] 11/01/22 1029 Dictated By: Vera Croft MD 11/01/22 1015 Signed By: 11/01/22 1029 Normal [facility] Automated basophil %Ordered By: Mino Jaimes on 10-16-2022 Basophils/100 WBC (Bld) 0.7 % Normal . [facility] Comment on above: Performed By: #### C BC, BMP #### [address] Automated basophil countOrde red By: Mino Jaimes on 10-16-2022 Basophils (Bld) [#/Vol] 0.0 10*3/uL Normal 0.0-0.2 [facility] Comment on above: Result Comment: PERF ORMED BY: [place] [address] PATHOLOGIST NEONATAL NURSE MEENAKSHI LEVINE M.D. Performed By: #### C BC, BMP #### [address] Automated blood monocyte cou ntOrdered By: Mino Jaimes on 10-16-2022 Monocytes (Bld) [#/Vol] 0.4 10*3/uL Normal 0.0-0.8 [facility] Comment on above: Performed By: #### C BC, BMP #### [address] Automated eosinophil %Ordere d By: Mino Jaimes on 10-16-2022 Eosinophils/100 WBC (Bld) 4.7 % Normal . [facility] Comment on above: Performed By: #### C BC, BMP #### [address] Automated eosinophil countOr dered By: Mino Jaimes on 10-16-2022 Eosinophils (Bld) [#/Vol] 0.3 10*3/uL Normal 0.0-0.45 [facility] Comment on above: Performed By: #### C BC, BMP #### [address] Automated monocyte %Ordered By: Mino Jaimes on 10-16-2022 Monocytes/100 WBC (Bld) 6.9 % Normal . [facility] Comment on above: Performed By: #### C BC, BMP #### [address] Automated neutrophil %Ordere d By: Mino Jaimes on 10-16-2022 Neutrophils/100 WBC (Bld) 72.7 % Normal . [facility] Comment on above: Performed By: #### C BC, BMP #### [address] Basic Metabolic Panelon GFR/1.73 sq M.predicted MDRD (S/P/Bld) [Vol rate/Area] mL/min/{1.73_m2} Normal [facility] Comment on above: Performed By: #### C BC, BMP #### [address] Calcium [Mass/volume] in Ser um or PlasmaOrdered By: Mino Jaimes on 10-16-2022 Calcium [Mass/Vol] 8.6 mg/dL Normal 8.6-10.[address] [facility] Comment on above: Result Comment: PERF ORMED BY: [place] [address] PATHOLOGIST NEONATAL NURSE MEENAKSHI LEVINE M.D. Performed By: #### C BC, BMP #### [address] Carbon dioxide, total [Moles /volume] in Serum or PlasmaOrdered By: Mino Jaimes on 10-16-2022 CO2 [Moles/Vol] 26.4 mmol/L Normal 21.0-31.0 [facility] Comment on above: Performed By: #### C BC, BMP #### [facility] [address] [place] [address] Chloride [Moles/volume] in S mikayla or PlasmaOrdered By: Mino Jaimes on 10-16-2022 Chloride [Moles/Vol] 102 mmol/L Normal 98-107 [facility] Comment on above: Performed By: #### C BC, BMP #### [address] Complete Blood Count Auto Di ffon 10-16-2022 Mean Corpuscular HGB Conc 34.0 g/dL Normal 32.0-35.0 [facility] Comment on above: Performed By: #### C BC, BMP #### [address] NRBC% 0.0 /100{WBC} Normal 0-0.5 [facility] Comment on above: Performed By: #### C BC, BMP #### [address] Creatinine [Mass/volume] in Serum or PlasmaOrdered By: Mino Jaimes on 10-16-2022 Creatinine [Mass/Vol] 0.88 mg/dL Normal 0.60-1.20 [facility] Comment on above: Performed By: #### C BC, BMP #### [place] [address] [place] ECG 12 lead ECGon 10-16-2022 ECG 12 lead ECG [facility] [place] [address] [place] [address] Electrocardiograph Report Signed Patient: Azra Saez MR#: [id number] : 1935 Acct:[id number] Age/Sex: 87 / F ADM Date: 10/16/22 Loc: [place] Room: Type: [facility] Attending Dr: Mino Jaimes MD Ordering [...] By Elsa Munroe DO 10/18 1237 Normal [facility] Erythrocyte distribution wid th [Ratio] by Automated countOrdered By: Mino Jaimes on 10-16-2022 Erythrocyte distribution width (RBC) [Ratio] 13.3 % Normal 11.9-15.3 [facility] Comment on above: Performed By: #### C BC, BMP #### [facility] [address] [place] [address] [place] Erythrocytes [#/volume] in B lood by Automated countOrdered By: Mino Jaimes on 10-16-2022 RBC (Bld) [#/Vol] 3.44 10*6/uL Low 3.60-5.00 [facility] Comment on above: Performed By: #### C BURKE, BMP #### [facility] [address] [place] [id number] [place] Glucose [Mass/volume] in Ser um or PlasmaOrdered By: Mino Jaimes on 10-16-2022 Glucose [Mass/Vol] 152 mg/dL High 70-[address] [facility] Comment on above: ADA recommended refe rence rangeRandom Glucose Reference Range is dependent on time and content of last meal. Glucose of more than 200 mg/dL in a nonstressed, ambulatory subject supports the diagnosis of Diabetes Mellitus. Result Comment: [place] om Glucose Reference Range is dependent on time and content of last meal. Glucose of more than 200 mg/dL in a nonstressed, ambulatory subject supports the diagnosis of Diabetes Mellitus. ADA recommended reference range Performed By: #### C BURKE, BMP #### [address] Hematocrit [Volume Fraction] of Blood by Automated countOrdered By: Mino Jaimes on 10-16-2022 Hematocrit (Bld) [Volume fraction] 31.4 % Low 34.0-46.4 [facility] Comment on above: Performed By: #### C BC, BMP #### [address] Hemoglobin [Mass/volume] in BloodOrdered By: Mino Jaimes on 10-16-2022 Hemoglobin (Bld) [Mass/Vol] 10.7 g/dL Low 11.8-15.4 [facility] Comment on above: Performed By: #### C BURKE, BMP #### [address] Leukocytes [#/volume] correc bouchra for nucleated erythrocytes in Blood by Automated counOrdered By: Mino Jaimes on 10-16-2022 WBC corrected for nucl RBC Auto (Bld) [#/Vol] 6.2 10*3/uL 3.8-11.6 [facility] Leukocytes [#/volume] in Blo od by Automated countOrdered By: Mino Jaimes on 10-16-2022 WBC (Bld) [#/Vol] 6.2 10*3/uL Normal 3.8-11.[address] [facility] Comment on above: Performed By: #### C BC, BMP #### [address] Lymphocytes [#/volume] in Bl ood by Automated countOrdered By: Mino Jaimes on 10-16-2022 Lymphocytes (Bld) [#/Vol] 0.9 10*3/uL Low 1.00-4.8 [facility] Comment on above: Performed By: #### C BC, BMP #### [place] [address] [place] Lymphocytes/100 leukocytes i n Blood by Automated countOrdered By: Mino Jaimes on 10-16-2022 Lymphocytes/100 WBC (Bld) 15.0 % Normal . [facility] Comment on above: Performed By: #### C BURKE, BMP #### [facility] [address] [place] [address] MCH [Entitic mass] by Automa bouchra countOrdered By: Mino Jaimes on 10-16-2022 MCH (RBC) [Entitic mass] 31.0 pg Normal 24.7-34.3 [facility] Comment on above: Performed By: #### C BURKE, BMP #### [address] MCHC Auto (RBC) [Mass/Vol]Or dered By: Mino Jaimes on 10-16-2022 MCHC (RBC) [Mass/Vol] 34.0 g/dL 32.0-35.0 [facility] MCV [Entitic volume] by Auto mated countOrdered By: Mino Jaimes on 10-16-2022 MCV (RBC) [Entitic vol] 91.2 fL Normal 80-100 F [facility] Comment on above: Performed By: #### C BURKE, BMP #### [address] Neutrophils [#/volume] in Bl ood by Automated countOrdered By: Mino Jaimes on 10-16-2022 Neutrophils (Bld) [#/Vol] 4.5 10*3/uL Normal 1.8-7.7 [facility] Comment on above: Performed By: #### C BURKE, BMP #### [address] No Panel InformationOrdered By: Mino Jaimes on 10-16-2022 Estimated GFR (CKD-EPI) > 60.0 mL/Min [facility] Creatinine Clearance (Chem N/A [facility] Nucleated erythrocytes [Pres ence] in Blood by Automated countOrdered By: Mino Jaimes on 10-16-2022 Nucleated RBC Auto Ql (Bld) 0.0 /100{WBC} 0-0.5 [facility] Platelet mean volume [Entiti c volume] in Blood by Automated countOrdered By: Mion Jaimes on 10-16-2022 Platelet mean volume (Bld) [Entitic vol] 9.9 fL Normal 6.3-10.7 [facility] Comment on above: Performed By: #### C BC, BMP #### [address] Platelets [#/volume] in Bloo d by Automated countOrdered By: Mino Jaimes on 10-16-2022 Platelets (Bld) [#/Vol] 231 10*3/uL Normal 150-450 [facility] Comment on above: Performed By: #### C BC, BMP #### [place] [address] [place] Potassium [Moles/volume] in Serum or PlasmaOrdered By: Mino Jaimes on 10-16-2022 Potassium [Moles/Vol] 3.8 mmol/L Normal 3.5-5.1 [facility] Comment on above: Performed By: #### C BC, BMP #### [address] Serum or plasma anion gap de terminationOrdered By: Mino Jaimes on 10-16-2022 Anion gap [Moles/Vol] 12.4 mmol/L Normal 6.0-15.0 [facility] Comment on above: Performed By: #### C BC, BMP #### [place] [address] [place] Sodium [Moles/volume] in Ser um or PlasmaOrdered By: Mino Jaimes on 10-16-2022 Sodium [Moles/Vol] 137 mmol/L Normal 136-[address] [facility] Comment on above: Performed By: #### C BC, BMP #### [place] [address] [place] Urea nitrogen [Mass/volume] in Serum or PlasmaOrdered By: Mino Jaimes on 10-16-2022 Urea nitrogen [Mass/Vol] 17 mg/dL Normal 7-25 [facility] Comment on above: Performed By: #### C BC, BMP #### [address] [place] [address] [facility] [address] SHOULDER LT WO CONon 04-3 CT [...] DARI CARVALHO Date: 2022-10-08 12:57 Normal [facility] GLYCOHEMOGLOBIN A1Con 2022 ADA RECOMMENDATION SEE BELOW Normal [facility] Comment on above: Result Comment: ADA RECOMMENDED LIMIT 4.0 - 6.0 ADA THERAPEUTIC TARGET < 7.0 ACTION SUGGESTED > 7.0 Performed By: #### A 1C ####[facility] [id number] [place] [address]Dr. Sandra Mccauley Glucose [Mass/Vol] 194 mg/dL Normal [facility] Comment on above: Performed By: #### A 1C ####[facility] [address] [place], [place] [address]DvDr. Sandra Mccauley HbA1c (Bld) [Mass fraction] 8.4 % Critically high 4.5-6.2 [facility] Comment on above: Performed By: #### A 1C ####[facility] [address] [place], [place] [address]TfDr. Sandra Mccauley VIT D 25-OH LABCORPon 2021 Vitamin D, 25-Hydroxy 30.7 ng/mL Normal 30.0-100.0 [facility] Comment on above: Result Comment: Jayda min D deficiency has been defined by the [employer] and an Endocrine Society practice guideline as a level of serum 25-OH vitamin D less than 20 ng/mL (1,2). The Endocrine Society went on to further define vitamin D insufficiency as a level between 21 and 29 ng/mL (2). 1. IOM ([employer]). 2010. Dietary reference intakes for calcium and D. Be [place]: The National Academies Press. 2. Terry MF, Jose David NC, Mary Beth PERALTA, et al. Evaluation, treatment, and prevention of vitamin D deficiency: an Endocrine Society clinical practice guideline. JCEM. 2010; 96(7):1911-30. Performed By: #### V ITADLC #### [facility] [id number] Sandra Mccauley MICROALBUMIN URINEon 022 Albumin, Urine 5.9 ug/mL Normal Not Estab. [facility] Comment on above: Performed By: #### M ALBLC #### [facility] [address] [place], [place] [address] Dr. Sandra Mccauley CBC AUTO DIFFon 02-16-2022 BASO # 0.0 103/ul Normal 0.0-0.1 [facility] Comment on above: Performed By: #### C BC #### [facility] [address] [address] [address] Sandra Mccauley Basophils/100 WBC (Bld) 0.9 % Normal 0.2-2.0 [facility] Comment on above: Performed By: #### C BC #### [facility] [address] [place] [address] Dr. Sandra Mccauley EO # 0.1 103/ul Normal 0.0-0.7 [facility] Comment on above: Performed By: #### C BC #### [facility] [address] [place] [address] Dr. Sandra Mccauley Eosinophils/100 WBC (Bld) 2.9 % Normal 0.9-7.0 [facility] Comment on above: Performed By: #### C BC #### [facility] [address] [place] [address] Dr. Sandra Mccauley Erythrocyte distribution width (RBC) [Ratio] 12.5 % Normal 11.0-15.0 [facility] Comment on above: Performed By: #### C BC #### [facility] [address] [place] [address] Dr. Sandra Mccauley Hematocrit (Bld) [Volume fraction] 36.3 % Normal 36.0-48.0 [facility] Comment on above: Performed By: #### C BC #### [facility] [address] [place] [address] Dr. Sandra Mccauley Hemoglobin (Bld) [Mass/Vol] 12.1 g/dL Normal 12.0-16.0 [facility] Comment on above: Performed By: #### C BC #### [facility] [address] [place] [address] Dr. Sandra Mccauley IG # 0.02 10e3/ul Normal 0.00-0.03 [facility] Comment on above: Performed By: #### C BC #### [facility] [address] [place] [address] Dr. Sandra Mccauley IG % 0.4 % Normal 0.0-0.5 [facility] Comment on above: Performed By: #### C BC #### [facility] [address] [place] [address] Dr. Sandra Mccauley LYMPH # 1.3 103/ul Normal 1.2-3.8 [facility] Comment on above: Performed By: #### C BC #### [facility] [address] [place] [address] Dr. Sandra Mccauley Lymphocytes/100 WBC (Bld) 28.9 % Normal 20.5-60.0 [facility] Comment on above: Performed By: #### C BC #### [facility] [address] [place] [address] Dr. Sandra Mccauley MANUAL DIFF REQ NO Normal [facility] Comment on above: Performed By: #### C BC #### [facility] [address] [place] [address] Dr. Sandra Mccauley MCH (RBC) [Entitic mass] 31.4 pg Normal 26.7-34.0 [facility] Comment on above: Performed By: #### C BC #### [facility] [address] [place] [address] Dr. Sandra Mccauley MCHC (RBC) [Mass/Vol] 33.3 g/dL Normal 29.9-35.2 [facility] Comment on above: Performed By: #### C BC #### [facility] [address] [place] [address] Dr. Sandra Mccauley MCV (RBC) [Entitic vol] 94.3 fL Normal 81.0-99.0 [facility] Comment on above: Performed By: #### C BC #### [facility] [address] [place] [address] Dr. Sandra Mccauley MONO # 0.5 103/ul Normal 0.3-0.8 [facility] Comment on above: Performed By: #### C BC #### [facility] [address] [place] [address] Dr. Sandra Mccauley Monocytes/100 WBC (Bld) 11.6 % Normal 1.7-12.0 [facility] Comment on above: Performed By: #### C BC #### [facility] [address] [place] [address] Dr. Sandra Mccauley NEUT # 2.5 103/ul Normal 1.4-6.5 [facility] Comment on above: Performed By: #### C BC #### [facility] [address] [place], [place] [address] Dr. Sandra Mccauley Neutrophils/100 WBC (Bld) 55.3 % Normal 43.0-75.0 [facility] Comment on above: Performed By: #### C BC #### [facility] [address] [place] [address] [address] Sandra Mccauley Platelet mean volume (Bld) [Entitic vol] 12.0 fL Normal 9.5-13.5 [facility] Comment on above: Performed By: #### C BC #### [facility] [address] [place] [address] [address] Sandra Mccauley PLT 223 103/ul Normal 150-450 [facility] Comment on above: Performed By: #### C BC #### [facility] [address] [place] [address] [address] Sandra Mccauley RBC 3.85 106/ul Critically low 4.20-5.40 [facility] Comment on above: Performed By: #### C BC #### [facility] [address] [place] [address] [address] Sandra Mccauley WBC 4.5 103/ul Normal 4.0-11.0 [facility] Comment on above: Performed By: #### C BC #### [facility] [address] [place] [address] [address] Sandra Mccauley FREE T3on 02-16-2022 FREE T3 1.92 pg/mlL Critically low 2.18-3.98 [facility] Comment on above: Performed By: #### L IPID, BMP, LIVER, TSH, FT3 ####[facility] [address] [place] [id number]. Sandra Mccauley FREE T4on 02-16-2022 Free T4 [Mass/Vol] 1.20 ng/dL Normal 0.76-1.46 [facility] Comment on above: Performed By: #### F T4 ####[facility] [address] [place] [id number]. Sandra Mccauley GLYCOHEMOGLOBIN A1Con 2021 ADA RECOMMENDATION SEE BELOW Normal [facility] Comment on above: Result Comment: ADA RECOMMENDED LIMIT 4.0 - 6.0 ADA THERAPEUTIC TARGET < 7.0 ACTION SUGGESTED > 7.0 Performed By: #### A 1C ####[facility] [address] [place] [id number]. Sandra Mccauley Glucose [Mass/Vol] 186 mg/dL Normal [facility] Comment on above: Performed By: #### A 1C ####[facility] [address] [place] [address]Dr. Sandra Mccauley HbA1c (Bld) [Mass fraction] 8.1 % Critically high 4.5-6.2 [facility] Comment on above: Performed By: #### A 1C ####[facility] [address] [place] [address]Dr. Sandra Mccauley LIPID PROFILEon 02-16-2022 CHOL-HDL RATIO NORM SEE BELOW Normal [facility] Comment on above: Result Comment: 3.3 - 4.4 LOW RISK 4.4 - 7.1 AVERAGE RISK 7.1 - 11.0 MODERATE RISK >11.0 HIGH RISK Performed By: #### L IPID, BMP, LIVER, TSH, FT3 #### [facility] [address] [place] [address] [address] Sandra Mccauley Cholesterol [Mass/Vol] 188 mg/dL Normal <=200 [facility] Comment on above: Performed By: #### L IPID, BMP, LIVER, TSH, FT3 #### [facility] [address] [place] [address] [address] Sandra Mccauley Cholesterol in HDL [Mass/Vol] 43 mg/dL Normal 40-60 [facility] Comment on above: Performed By: #### L IPID, BMP, LIVER, TSH, FT3 #### [facility] [address] [place] [address] [address] Sandra Mccauley Cholesterol in LDL [Mass/Vol] 94.8 mg/dL Normal [facility] Comment on above: Performed By: #### L IPID, BMP, LIVER, TSH, FT3 #### [facility] [address] [place] [address] [address] Sandra Mccauley Cholesterol.total/Pura sterol in HDL [Mass ratio] 4.4 {ratio} Normal [facility] Comment on above: Performed By: #### L IPID, BMP, LIVER, TSH, FT3 #### [facility] [address] [place] [address] [address] Sandra Mccauley HDL NORMAL > or = 60 mg/dl - LO W CARDIOVASCULAR RISK <40 mg/dl - HIGH CARDIOVASCULAR RISK Normal [facility] Comment on above: Performed By: #### L IPID, BMP, LIVER, TSH, FT3 #### [facility] [address] [place] [address] [address] Sandra Mccauley LDL CALC NORMAL SEE BELOW Normal [facility] Comment on above: Result Comment: <100 mg/dl OPTIMAL 100 - 129 mg/dl NEAR OR ABOVE OPTIMAL 130 - 159 mg/dl BORDERLINE HIGH 160 - 189 mg/dl HIGH >190 mg/dl VERY HIGH Performed By: #### L IPID, BMP, LIVER, TSH, FT3 #### [facility] [address] [address] [address] Sandra Mccauley Triglyceride [Mass/Vol] 251 mg/dL Critically high <=150 [facility] Comment on above: Performed By: #### L IPID, BMP, LIVER, TSH, FT3 #### [facility] [address] [place] [address] [address] Sandra Mccauley VLDL CALC 50.2 mg/dL Normal [facility] Comment on above: Performed By: #### L IPID, BMP, LIVER, TSH, FT3 #### [facility] [address] [place] [address] [address] Sandra Mccauley LIVER PROFILEon 02-16-2022 Albumin [Mass/Vol] 3.7 g/dL Normal 3.4-5.0 [facility] Comment on above: Performed By: #### L IPID, BMP, LIVER, TSH, FT3 #### [facility] [address] [address] [address] Sandra Mccauley Albumin/Globulin [Mass ratio] 1.0 {ratio} Normal [facility] Comment on above: Performed By: #### L IPID, BMP, LIVER, TSH, FT3 #### [facility] [address] [place] [address] Dr. Sandra Mccauley ALP [Catalytic activity/Vol] 84 U/L Normal 46-116 [facility] Comment on above: Performed By: #### L IPID, BMP, LIVER, TSH, FT3 #### [facility] [address] [place] [address] Dr. Sandra Mccauley ALT [Catalytic activity/Vol] 37 U/L Normal 14-59 [facility] Comment on above: Performed By: #### L IPID, BMP, LIVER, TSH, FT3 #### [facility] [address] [place] [address] Dr. Sandra Mccauley AST [Catalytic activity/Vol] 21 U/L Normal 15-37 [facility] Comment on above: Performed By: #### L IPID, BMP, LIVER, TSH, FT3 #### [facility] [address] [place] [address] Dr. Sandra Mccauley BILI, CONJUGATED 0.1 mg/dL Normal 0.0-0.2 [facility] Comment on above: Performed By: #### L IPID, BMP, LIVER, TSH, FT3 #### [facility] [address] [place] [address] Dr. Sandra Mccauley Bilirubin [Mass/Vol] 0.4 mg/dL Normal 0.2-1.0 [facility] Comment on above: Performed By: #### L IPID, BMP, LIVER, TSH, FT3 #### [facility] [address] [place] [address] Dr. Sandra Mccauley Globulin (S) [Mass/Vol] 3.6 g/dL Normal [facility] Comment on above: Performed By: #### L IPID, BMP, LIVER, TSH, FT3 #### [facility] [address] [place] [address] Dr. Sandra Mccauley Protein [Mass/Vol] 7.3 g/dL Normal 6.4-8.2 [facility] Comment on above: Performed By: #### L IPID, BMP, LIVER, TSH, FT3 #### [facility] [address] [place] [address] [address] Sandra Mccauley PROF CHEM 8 (BAS METB)on Anion gap [Moles/Vol] 10.8 mmol/L Normal [facility] Comment on above: Performed By: #### L IPID, BMP, LIVER, TSH, FT3 #### [facility] [address] [place] [address] [address] Sandra Mccauley Calcium [Mass/Vol] 9.3 mg/dL Normal 8.5-10.1 [facility] Comment on above: Performed By: #### L IPID, BMP, LIVER, TSH, FT3 #### [facility] [address] [address] [address] Sandra Mccauley Chloride [Moles/Vol] 101 mmol/L Normal 98-107 [facility] Comment on above: Performed By: #### L IPID, BMP, LIVER, TSH, FT3 #### [facility] [address] [address] [address] Sandra Mccauley CO2 [Moles/Vol] 29.2 mmol/L Normal 21.0-32.0 [facility] Comment on above: Performed By: #### L IPID, BMP, LIVER, TSH, FT3 #### [facility] [address] [address] [address] Sandra Mccauley Creatinine [Mass/Vol] 0.96 mg/dL Normal 0.55-1.02 [facility] Comment on above: Performed By: #### L IPID, BMP, LIVER, TSH, FT3 #### [facility] [address] [address] [address] Sandra Mccauley EGFR-AF IRISH >60 Normal >=60 [facility] Comment on above: Performed By: #### L IPID, BMP, LIVER, TSH, FT3 #### [facility] [address] [address] [address] Sandra Mccauley EGFR-NON AF IRISH 55 mL/min/1.73m2 Critically low >=60 [facility] Comment on above: Performed By: #### L IPID, BMP, LIVER, TSH, FT3 #### [facility] [address] [address] [address] Sandra Mccauley Glucose [Mass/Vol] 164 mg/dL Critically high 74-106 [facility] Comment on above: Performed By: #### L IPID, BMP, LIVER, TSH, FT3 #### [facility] [address] [place] [address] Dr. Sandra Mccauley Potassium [Moles/Vol] 4.0 mmol/L Normal 3.5-5.1 [facility] Comment on above: Performed By: #### L IPID, BMP, LIVER, TSH, FT3 #### [facility] [address] [place] [address] Dr. Sandra Mccauley Sodium [Moles/Vol] 137 mmol/L Normal 136-145 [facility] Comment on above: Performed By: #### L IPID, BMP, LIVER, TSH, FT3 #### [facility] [address] [place] [address] Dr. Sandra Mccauley Urea nitrogen [Mass/Vol] 14.0 mg/dL Normal 7.0-18.0 [facility] Comment on above: Performed By: #### L IPID, BMP, LIVER, TSH, FT3 #### [facility] [address] [place] [address] Dr. Sandra Mccauley Urea nitrogen/Creatinine [Mass ratio] 14.6 mg/mg Normal [facility] Comment on above: Performed By: #### L IPID, BMP, LIVER, TSH, FT3 #### [facility] [address] [place] [address] Dr. Sandra Mccauley TSHon 02-16-2022 TSH 1.662 uIU/mL Normal 0.358-3.740 [facility] Comment on above: Performed By: #### L IPID, BMP, LIVER, TSH, FT3 #### [facility] [address] [place] [address] Dr. Sandra Mccauley Vital Signs Date Time Vital Sign Value Performing Clinician Facility 07-01-2024 13:36-0500 Body height 157.5 cm Pierce Patel MD Work Phone: [facility] 07-01-2024 13:36-0500 Body mass index (BMI) [Ratio] 34.39 kg/m2 Pierce Patel MD Work Phone: [facility] 07-01-2024 13:36-0500 Body temperature 95.7 [degF] Pierce Patel MD Work Phone: [facility] 07-01-2024 13:36-0500 Body weight 85.28 kg Pierce Patel MD Work Phone: [facility] 07-01-2024 13:36-0500 Diastolic blood pressure 66 mm[Hg] Pierce Patel MD Work Phone: [facility] 07-01-2024 13:36-0500 Heart rate 58 /min Pierce Patel MD Work Phone: [facility] 07-01-2024 13:36-0500 Respiratory rate 22 /min Pierce Patel MD Work Phone: [facility] 07-01-2024 13:36-0500 SaO2% (BldA) [Mass fraction] 97 % Pierce Patel MD Work Phone: [facility] 07-01-2024 13:36-0500 Systolic blood pressure 152 mm[Hg] iPerce Patel MD Work Phone: [facility] 04-03-2024 13:14-0400 Body height 157.5 cm Pierce Patel MD Work Phone: [facility] 04-03-2024 13:14-0400 Body mass index (BMI) [Ratio] 30.91 kg/m2 Pierce Patel MD Work Phone: [facility] 04-03-2024 13:14-0400 Body temperature 95.31 [degF] Pierce Patel MD Work Phone: [facility] 04-03-2024 13:14-0400 Body weight 76.66 kg Pierce Patel MD Work Phone: [facility] 04-03-2024 13:14-0400 Diastolic blood pressure 70 mm[Hg] Pierce Patel MD Work Phone: [facility] 04-03-2024 13:14-0400 Heart rate 68 /min Pierce Patel MD Work Phone: [facility] 04-03-2024 13:14-0400 Respiratory rate 20 /min Pierce Patel MD Work Phone: [facility] 04-03-2024 13:14-0400 SaO2% (BldA) [Mass fraction] 97 % Pierce Patel MD Work Phone: [facility] 04-03-2024 13:14-0400 Systolic blood pressure 140 mm[Hg] Pierce Patel MD Work Phone: [facility] 07-19-2023 13:24-0500 Body height 157.5 cm Pierce Patel MD Work Phone: [facility] 07-19-2023 13:24-0500 Body mass index (BMI) [Ratio] 30.91 kg/m2 Pierce Patel MD Work Phone: [facility] 07-19-2023 13:24-0500 Body temperature 97.5 [degF] Pierce Patel MD Work Phone: [facility] 07-19-2023 13:24-0500 Body weight 76.66 kg Pierce Patel MD Work Phone: [facility] 07-19-2023 13:24-0500 Diastolic blood pressure 70 mm[Hg] Pierce Patel MD Work Phone: [facility] 07-19-2023 13:24-0500 Heart rate 62 /min Pierce Patel MD Work Phone: [facility] 07-19-2023 13:24-0500 SaO2% (BldA) [Mass fraction] 94 % Pierce Patel MD Work Phone: [facility] 07-19-2023 13:24-0500 Systolic blood pressure 140 mm[Hg] Pierce Patel MD Work Phone: [facility] 11-03-2022 11:50-0400 Body temperature 97.7 [degF] MD Pierce Patel Work Phone: [facility] 11-03-2022 11:50-0400 Diastolic blood pressure 75 mm[Hg] MD Pierce Patel Work Phone: [facility] 11-03-2022 11:50-0400 Heart rate 62 /min MD Pierce Patel Work Phone: [facility] 11-03-2022 11:50-0400 Respiratory rate 16 /min MD Pierce Patel Work Phone: [facility] 11-03-2022 11:50-0400 SaO2% (BldA) [Mass fraction] 94 % MD Pierce Patel Work Phone: [facility] 11-03-2022 11:50-0400 Systolic blood pressure 121 mm[Hg] MD Pierce Patel Work Phone: [facility] 11-03-2022 05:52-0400 Body weight 76.4 kg MD Pierce Patel Work Phone: [facility] 11-02-2022 10:30-0400 Body height 157.48 cm MD Pierce Patel Work Phone: [facility] 11-01-2022 09:35-0400 Inhaled oxygen flow rate 6 L/min MD Pierce Patel Work Phone: [facility] 11-01-2022 06:51-0400 Body mass index (BMI) [Ratio] 31 kg/m2 MD Pierce Patel Work Phone: [facility] 04-14-2021 16:00-0400 Body height 152.4 cm He Shook [facility] Other [facility] Other 04-14-2021 16:00-0400 Body mass index (BMI) [Ratio] 33.98 kg/m2 [facility] Other 04-14-2021 16:00-0400 Body weight 78.93 kg He Shook [facility] Other [facility] Other 04-14-2021 16:00-0400 Respiratory rate 18 /min He Sohok II Other [facility] Other 04-14-2021 16:00-0400 SaO2% (BldA) [Mass fraction] 98 % He [facility] Other [facility] Other Encounters Encounter Date Encounter Type Care Provider Facility Start: 07-01-2024 End: 07-01-2024 Bamboo flowsheet Pierce Patel MD Work Phone: [facility] Start: 07-01-2024 End: 07-01-[facility] Pat[facility] MD Work Phone: [facility] Start: 07-01-2024 End: 07-01-2024 Office outpatient visit 15 minutes Pierce Patel MD Work Phone: [facility] Comment on above: Medicare annual well ness visit, subsequent (Primary Dx); Type 2 diabetes mellitus with hyperglycemia, without long-term current use of insulin ([facility]); Edema of both legs; Diabetic polyneuropathy associated with type 2 diabetes mellitus ([facility]) Start: 07-01-2024 End: 07-01-2024 Patient encounter procedure Pierce Patel MD Work Phone: [facility] Work Phone: Start: 07-01-2024 End: 07-01-2024 ambulatory PIERCE PATEL Not Available Start: 04-17-2024 End: 04-17-2024 Clinisync Result Encounter [...] 25 minutes Pierce Patel MD Work Phone: [facility] Comment on above: Type 2 diabetes jayla itus with hyperglycemia, without long-term current use of insulin ([facility]) (Primary Dx); Osteoarthrosis, generalized, involving multiple sites; Diabetic polyneuropathy associated with type 2 diabetes mellitus ([facility]); Edema of both legs; Gastroesophageal reflux disease without esophagitis; Immunodeficiency due to conditions classified elsewhere ([facility]) Start: 03-25-2024 End: 03-25-2024 Refill Pierce Patel MD Work Phone: [facility] Comment on above: Diabetic polyneuropa thy associated with type 2 diabetes mellitus ([facility]) Start: 03-19-2024 End: 03-19-2024 Bamboo flowsheet Nicole Mitchell [facility] [employer] MACHINE OPERATOR Work Phone: [facility] Start: 03-19-2024 End: 03-19-2024 Bamboo flowsheet Nicole Mitchell WORD PROCESSING MACHINE OPERATOR Work Phone: [facility] Start: 03-19-2024 End: 03-19-2024 ambulatory NICOLE MITCHELL Not Available Start: 03-19-2024 End: 03-19-2024 Office outpatient visit 25 minutes Nicole Mitchell NP Work Phone: [facility] Comment on above: Right knee pain, uns pecified chronicity (Primary Dx); Arthritis of right knee Start: 01-02-2024 End: 01-02-2024 ambulatory PIERCE PATEL Not Available Start: 10-03-2023 End: 10-03-2023 ambulatory NICOLE MITCHELL Not Available Start: 10-01-2023 End: 10-01-2023 ambulatory [...] hyperglycemia, without long-term current use of insulin (CMS/[facility]) Start: 07-19-2023 End: 07-19-2023 ambulatory PIERCE PATEL Not Available Start: 07-02-2023 End: 07-07-2023 ambulatory LYNN CROWDER [facility] Start: 07-02-2023 Encounter for other preprocedural examination [facility] Start: 12-21-2022 Postop follow up vis it related to original px [facility] Start: 12-21-2022 End: 12-21-2022 ambulatory MD Pierce Patel Work Phone: [facility] Work Phone: Start: 12-21-2022 End: 12-21-2022 Patient encounter procedure MD Pierce Patel Work Phone: [facility] Start: 11-09-2022 End: 11-09-2022 ambulatory Marcia Bolden Facility:[facility] Start: 11-09-2022 Postop follow up vis it related to original px Marcia Bolden [facility] Start: 11-09-2022 End: 11-09-2022 ambulatory MD Pierce Patel Work Phone: [facility] Work Phone: Start: 11-09-2022 End: 11-09-2022 Patient encounter procedure MD Pierce Patel Work Phone: [facility] Start: 11-01-2022 End: 11-03-2022 ambulatory Mino Olexa Facility:[facility] Start: 11-01-2022 End: 11-03-2022 Admission to same day surgery center MD Peirce Patel Work Phone: [facility] Start: 10-16-2022 End: 10-16-2022 ambulatory Mino Olexa Facility:[facility] Start: 10-16-2022 End: 10-16-2022 ambulatory MD Pierce Patel Work Phone: [facility] Work Phone: Start: 10-16-2022 End: 10-16-2022 Patient encounter procedure MD Pierce Patel Work Phone: [facility] Work Phone: Start: 10-10-2022 End: 10-10-2022 ambulatory Mino Olexa Other [facility] Other Start: 10-10-2022 Office outpatient ne w 45 minutes Mino Olexa [facility] Start: 10-08-2022 End: 10-08-[address] PIERCE PATEL Facility:[facility] Start: 08-17-2022 End: 08-18-[address] PIERCE PATEL Facility:[facility] Start: 02-16-2022 End: 02-17-[address] PIERCE PATEL Facility:[facility] Start: 10-31-2021 End: 11-01-[address] PIERCE PATEL Facility:[facility] Start: 04-14-2021 End: 04-14-2021 ambulatory He [employer] Other [employer] Other Start: 04-14-2021 Office outpatient ne w 30 minutes He Shook II [facility] Procedures Date Procedure Procedure Detail Performing Clinician Start: 04-17-2024 MLR HEMOGLOBIN A1C Pierce Patel MD Work Phone: Start: 03-19-2024 Arthrocentesis aspir &/inj major jt/bursa w/o us Nicole Mitchell WORD PROCESSING MACHINE OPERATOR Work Phone: Start: 12-21-2022 Plain X-ray of [...] 12-26-2025 Glaucoma screening Diabetes: R etinopathy Screening [facility] Start: 04-03-2025 Medicare Annual Wellness (AWV) Medicare Annual Wellness (AWV) [facility] Start: 10-15-2024 Hemoglobin A1c measurement Diabetes: Hemoglobin A1C [facility] Start: 10-04-2024 Urine screening for protein Diabetes: Urine Protein Screening [facility] Start: 08-05-2024 End: 08-05-2024 Patient encounter procedure 08/05/2024 1:15 PM EST Office Visit [facility] [address] [place] [phone] Pierce Patel MD [address] [place] [phone] [facility] Start: 07-01-2024 End: 07-01-2025 Hemoglobin A1c/Hemoglobin.total in Blood Hemoglobin A1c Lab Routine Type 2 diabetes mellitus with hyperglycemia, without long-term current use of insulin ([facility]) Expected: 07/01/2024 (Approximate), Expires: 07/01/2025 [facility] Work Phone: Comment on above: Expected: 07/01/2024 (Approximate), Expires: 07/01/2025 Start: 07-01-2024 End: 07-01-2024 Patient encounter procedure [facility] Comment on above: Arrived Start: 04-05-2024 Hemoglobin A1c measurement Diabetes: Hemoglobin A1C [facility] Start: 04-03-2024 End: 04-03-2025 Hemoglobin A1c/Hemoglobin.total in Blood Hemoglobin A1c Lab Routine Type 2 diabetes mellitus with hyperglycemia, without long-term current use of insulin ([facility]) Expected: 04/03/2024 (Approximate), Expires: 04/03/2025 [facility] Work Phone: Comment on above: Expected: 04/03/2024 (Approximate), Expires: 04/03/2025 Start: 04-03-2024 End: 04-03-2024 Patient encounter procedure 04/03/2024 1:00 PM EDT Office Visit [facility] [address] [place] [address] Pierce Patel MD [address] [place] [address] [facility] Start: 04-02-2024 End: 04-02-2024 Patient encounter procedure 04/02/2024 1:15 PM EDT Office Visit [facility] [address] [place] [phone] Nicole Mitchell NP [address] [place] [address] [facility] Start: 02-10-2024 Influenza vaccination Influenza Vacc ine (#1) [facility] Start: 09-18-2023 End: 09-18-2023 Patient encounter procedure 09/18/2023 2:45 PM EDT [facility] [address] [place] [phone] Pierce Patel MD [address] [place] [phone] [facility] Start: 07-19-2023 End: 07-19-2023 Patient encounter procedure 07/19/2023 1:15 PM EST Office Visit [facility] [address] [place] [address] Pierce Patel MD [address] [place] [phone] Arrived [facility] Comment on above: Arrived Start: 11-01-2022 End: 11-01-2022 [facility] Start: 1954 Urine screening for protein Diabetes: Urine Protein Screening [facility] Start: 1945 Glaucoma screening Diabetes: R etinopathy Screening [facility] Start: 1935 Hemoglobin A1c measurement Diabetes: Hemoglobin A1C [facility] Start: 1935 Medicare Annual Wellness (AWV) Medicare Annual Wellness (AWV) [facility] Patient referral [facility] Work Phone: Immunizations Immunization Date Immunization Notes Care Provider [facility] 02-27-2023 influenza virus vaccine, unspecified formulation Nicole Mitchell NP Work Phone: [facility] 04-13-2021 COVID-19 mRNASandorirsanjuanita (Pfizer) MD Pierce Patel Work Phone: [facility] 09-14-2020 COVID-19 mRNASandorirnatvanesa (Pfizer) MD Pierce Patel Work Phone: [facility] 08-24-2020 COVID-19 mRNASandorgalindo (Pfizer) MD Pierce Patel Work Phone: [facility] Payers Date Payer Category Payer Self-pay [id number] 2021 Medicaid AETNA MEDICARE A DVANTAGE [id number] 2021 Medicare AETNA MEDICARE A DVANTAGE AETNA MEDICARE REPLACEMENT [id number] 2021-Present [address] [place] [address] [id number] 1959 Medicare [id number] 1959 Medicare [id number] [id number] 1937 Unknown [id number] [id number] 1937 Unknown [id number] 2.16840.1.203184.3.579.2.593 1937 Unknown [id number] 2.16840.1.025644.3.579.2.593 1937 Unknown [id number] 2.16.840.1.009114.3.579.2.593 1937 Unknown [id number] 2.16840.1.442893.3.579.2.175 1937 Unknown [id number] 2.16.840.1.351096.3.579.2.1259 1937 Unknown [id number] 2.16.840.1.395251.3.579.2.1259 1937 Unknown [id number] 2.16.840.1.830534.3.579.2.1259 1937 Unknown [id number] 2.16.840.1.843564.3.579.2.125 1937 Unknown [id number] 2.16.840.1.773399.3.579.2.1258 1937 Unknown [id number] 2.16.840.1.499141.3.579.2.1259 1937 Unknown [id number] 2.16.840.1.701192.3.579.2.9 1937 Unknown [id number] 2.16.840.1.398110.3.579.2.1259 Unknown [id number] 2.16.840.1.517504.3.579.2.531 Unknown [id number] 2.16.840.1.467158.3.579.2.531 Unknown [id number] 2.16.840.1.942636.3.579.2.531 Unknown [id number] [id number] Social History Date Type Detail Facility Start: 07-13-2023 End: 07-01-2024 Sex Assigned At [facility] Other Start: 10-16-2022 End: 07-19-2023 Tobacco smoking status NHIS Never smoked tobacco (finding) [facility] Start: 1935 Sex Assigned At Female [facility] Start: 07-13-2023 End: 07-01-2024 History of Social function [facility] Start: 1935 Sex Assigned At Not on file [facility] Start: 07-19-2023 Tobacco use and exposure Smokeless tobacco non-user [facility] Start: 01-02-2024 End: 07-01-2024 Alcoholic beverage intake Ex-drinker (finding) [facility] Medical Equipment Procedure Code Equipment Code Equipment Origin al Text Equipment Identifier Dates Arthroplasty, shoulder, total Orthopaedic cement, non-medicated [id number] FDA Start: 11-01-2022 Arthroplasty, shoulder, total Total reverse shoulder prosthesis ()[id number] [id number] FDA Start: 11-01-2022 Arthroplasty, shoulder, total Polymer orthopaedic cement restrictor, non-bioabsorbable, sterile ()[id number] [id number] FDA Start: 11-01-2022 Arthroplasty, shoulder, total Total reverse shoulder prosthesis ()[id number] [id number] 24 FDA Start: 11-01-2022 Arthroplasty, shoulder, total Total reverse shoulder prosthesis ()[id number] 17)[id number])[id number] 20 FDA Start: 11-01-2022 Arthroplasty, shoulder, total Total reverse shoulder prosthesis ()[id number] [id number])22.031 99 FDA Start: 11-01-2022 Arthroplasty, shoulder, total Total reverse shoulder prosthesis ()[id number]( 17)[id number])[id number] 76 FDA Start: 11-01-2022 Arthroplasty, shoulder, total Total reverse shoulder prosthesis ()[id number]( 17)[id number] 51 FDA Start: 11-01-2022 Arthroplasty, shoulder, total Total reverse shoulder prosthesis ()[id number] 10)[id number] FDA Start: 11-01-2022 Arthroplasty, shoulder, total Total reverse shoulder prosthesis ()[id number] [id number] 07 FDA Start: 11-01-2022 Arthroplasty, shoulder, total Total reverse shoulder prosthesis ()[id number] [id number] 13 [facility] Start: 11-01-2022 Start: 10-05-2023 Goals Date Patient Goal Desired Activity /State Functional Status Date Assessment Result Facility 11-03-2022 Functional status 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 Baseline [facility] Work Phone: Mental Status Date Assessment Result Facility 11-03-2022 Cognitive function Cognitive Sta tus Patient at Baseline [facility] Work Phone: Clinical Notes 04-14-2021 to 07-01-2024 Pierce Patel MD - 07/01/2024 2:14 PM Kathy Patel MD - 07/01/2024 2:14 PM Kathy Patel MD - 07/01/2024 2:13 PM Kathy Patel MD - 07/01/2024 2:13 PM EST Note Date & Type Note Facility 07-01-2024 History of Presen t illness Narrative Associated Problem(s): Type 2 diabetes mellitus with hyperglycemia, without long-term current use of insulin ([facility]) BS improved but likely edema related to actos and stop. Repeat A1C. Stick to ADA diet and limit carbs. Associated Problem(s): Medicare annual wellness visit, subsequent Reviewed labs. Discussed proper diet and regular aerobic exercise. Need aerobic exercise 5-6 days a week for 30 minutes at a time. Smaller portions and limit total calories. Tetanus every 10 years. Advised not to smoke. Associated Problem(s): Edema of both legs Worsening edema likely related to actos and stop. Elevate legs PRN. Continue lasix. Associated Problem(s): Diabetic polyneuropathy ([facility]) Symptoms stable with neurontin and continue. Images from the original note were not included. Subjective Patient ID: Azra Saez is a 88 y.o. female who presents for Medicare Annual Wellness Visit Subsequent (wellness). Presents for medicare annual wellness visit. Weight up 19 pounds in past 3 months. Not very active around house and doesn't walk much. Tries to watch diet and eat healthy. Increased fruits and vegetables. Smaller portions and limits snacking. Tries to limit total daily calories. C/o severe edema of legs starting few weeks after last visit. Taking lasix but not helping. Edema slightly better with elevation and in am. Added actos last visit and BS improved. BS 140-200 but last A1C 7.3. Tries to stick to ADA diet. Denies signs of elevated BS such as polyuria, polyphagia or polydipsia. Neuropathy stable. Continued pain and burning in legs but tolerable. Review of Systems Respiratory: Negative for cough, [...] There is no guarding or rebound. Musculoskeletal: General: No swelling or tenderness. Cervical back: Neck supple. Right lower leg: No edema. Left lower leg: No edema. Skin: Findings: No erythema or rash. Neurological: General: No focal deficit present. Mental Status: She is alert and oriented to person, place, and time. Cranial Nerves: No cranial nerve deficit. Motor: No weakness. Gait: Gait normal. Assessment/Plan Problem List Items Addressed This Visit Edema of both legs Worsening edema likely related to actos and stop. Elevate legs PRN. Continue lasix. Diabetic polyneuropathy ([facility]/HCC) Symptoms stable with neurontin and continue. Type 2 diabetes mellitus with hyperglycemia, without long-term current use of insulin ([facility]) BS improved but likely edema related to actos and stop. Repeat A1C. Stick to ADA diet and limit carbs. Relevant Orders Hemoglobin A1c Medicare annual wellness visit, subsequent - Primary Reviewed labs. Discussed proper diet and regular aerobic exercise. Need aerobic exercise 5-6 days a week for 30 minutes at a time. Smaller portions and limit total calories. Tetanus every 10 years. Advised not to smoke. documented in this encounter [facility] 04-03-2024 History of Presen t illness Narrative Associated Problem(s): Type 2 diabetes mellitus with hyperglycemia, without long-term current use of insulin ([facility]) BS elevated and resume actos. Due for A1C. Stick to ADA diet and limit carbs. Associated Problem(s): Osteoarthrosis, generalized, involving multiple sites Pain stable and use celebrex and ultram PRN. Associated Problem(s): Gastroesophageal reflux disease Symptoms controlled with prilosec and continue. Associated Problem(s): Edema of both legs Edema controlled with medication. Elevate legs PRN. Associated Problem(s): Diabetic polyneuropathy ([facility]/HCC) Symptoms stable with neurontin and continue. Images [...] Orders Hemoglobin A1c documented in this encounter [facility] 03-19-2024 History of Presen t illness Narrative [...] the past 6 months. 5 years ago (2018) she slipped on ice going down stairs [...] in 2 weeks. documented in this encounter [facility] 07-19-2023 History of Presen t illness Narrative Associated Problem(s): Diabetic polyneuropathy ([facility]) Continued neuropathy and continue neurontin. Form for [...] List Items Addressed This Visit Diabetic polyneuropathy (CMS/HCC) - Primary Continued neuropathy and continue neurontin. Form for diabetic shoes completed. Type 2 diabetes mellitus with hyperglycemia, without long-term current use of insulin ([facility]) Reports BS elevated and due for labs. Stick to ADA diet and limit carbs. 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 [facility] Other Evaluation noteNo assessment information available [facility] Work Phone: Evaluation note* Diagnosis Onset Date Resolution Status Closed fracture of left proximal humerus acute [facility] Work Phone: Evaluation note* Diagnosis Diabetic polyneuropathy associated with type 2 diabetes mellitus ([facility]/HCC)- Primary Type 2 diabetes mellitus with hyperglycemia, without long-term current use of insulin ([facility]) documented in this encounter [facility]* Diagnosis Right knee pain, unspecified chronicity- Primary Arthritis of right knee documented in this encounter [facility]* Diagnosis Diabetic polyneuropathy associated with type 2 diabetes mellitus (CMS/HCC)- Primary Type 2 diabetes mellitus with hyperglycemia, without long-term current use of insulin (CMS/HCC) Type 2 diabetes mellitus with hyperglycemia, without long-term current use of insulin ([facility])- Primary Diabetic polyneuropathy associated with type 2 diabetes mellitus (CMS/HCC) Edema of both legs Edema Osteoarthrosis, generalized, involving multiple sites Generalized osteoarthrosis, involving multiple sites Bilateral primary osteoarthritis of knee Gastroesophageal reflux disease without esophagitis Esophageal reflux Seasonal allergic rhinitis due to pollen Adult hypothyroidism ([facility]) Unspecified hypothyroidism Dyslipidemia ([facility]) Other and unspecified hyperlipidemia Encounter for long-term (current) use of medications Encounter for long-term (current) use of other medications Vitamin D deficiency Type 2 diabetes mellitus with hyperglycemia, without long-term current use of insulin ([facility])- Primary Diabetic polyneuropathy associated with type 2 diabetes mellitus ([facility]) Osteoarthrosis, generalized, involving multiple sites Generalized osteoarthrosis, involving multiple sites Edema of both legs Edema Gastroesophageal reflux disease without esophagitis Esophageal reflux Idiopathic urticaria Adult hypothyroidism ([facility]) Unspecified hypothyroidism Immunodeficiency due to conditions classified elsewhere ([facility]) Diabetic polyneuropathy associated with type 2 diabetes mellitus ([facility]) documented in this encounter [facility]* Diagnosis Diabetic polyneuropathy associated with type 2 diabetes mellitus ([facility])- Primary Type 2 diabetes mellitus with hyperglycemia, without long-term current use of insulin ([facility] Type 2 diabetes mellitus with hyperglycemia, without long-term current use of insulin ([facility])- Primary Diabetic polyneuropathy associated with type 2 diabetes mellitus ([facility]) Edema of both legs Edema Osteoarthrosis, generalized, involving multiple sites Generalized osteoarthrosis, involving multiple sites Bilateral primary osteoarthritis of knee Gastroesophageal reflux disease without esophagitis Esophageal reflux Seasonal allergic rhinitis due to pollen Adult hypothyroidism ([facility]) Unspecified hypothyroidism Dyslipidemia ([facility]) Other and unspecified hyperlipidemia Encounter for long-term (current) use of medications Encounter for long-term (current) use of other medications Vitamin D deficiency Type 2 diabetes mellitus with hyperglycemia, without long-term current use of insulin ([facility])- Primary Diabetic polyneuropathy associated with type 2 diabetes mellitus ([facility]) Osteoarthrosis, generalized, involving multiple sites Generalized osteoarthrosis, involving multiple sites Edema of both legs Edema Gastroesophageal reflux disease without esophagitis Esophageal reflux Idiopathic urticaria Adult hypothyroidism ([facility]) Unspecified hypothyroidism Immunodeficiency due to conditions classified elsewhere ([facility]) Type 2 diabetes mellitus with hyperglycemia, without long-term current use of insulin ([facility] Primary Osteoarthrosis, generalized, involving multiple sites Generalized osteoarthrosis, involving multiple sites Diabetic polyneuropathy associated with type 2 diabetes mellitus ([facility]) Edema of both legs Edema Gastroesophageal reflux disease without esophagitis Esophageal reflux Immunodeficiency due to conditions classified elsewhere ([facility]) documented in this encounter [facility]* Diagnosis Diabetic polyneuropathy associated with type 2 diabetes mellitus ([facility])- Primary Type 2 diabetes mellitus with hyperglycemia, without long-term current use of insulin ([facility]) Type 2 diabetes mellitus with hyperglycemia, without long-term current use of insulin ([facility])- Primary Diabetic polyneuropathy associated with type 2 diabetes mellitus ([facility]) Edema of both legs Edema Osteoarthrosis, generalized, involving multiple sites Generalized osteoarthrosis, involving multiple sites Bilateral primary osteoarthritis of knee Gastroesophageal reflux disease without esophagitis Esophageal reflux Seasonal allergic rhinitis due to pollen Adult hypothyroidism ([facility]) Unspecified hypothyroidism Dyslipidemia ([facility]) Other and unspecified hyperlipidemia Encounter for long-term (current) use of medications Encounter for long-term (current) use of other medications Vitamin D deficiency Type 2 diabetes mellitus with hyperglycemia, without long-term current use of insulin ([facility])- Primary Diabetic polyneuropathy associated with type 2 diabetes mellitus ([facility]) Osteoarthrosis, generalized, involving multiple sites Generalized osteoarthrosis, involving multiple sites Edema of both legs Edema Gastroesophageal reflux disease without esophagitis Esophageal reflux Idiopathic urticaria Adult hypothyroidism ([facility]) Unspecified hypothyroidism Immunodeficiency due to conditions classified elsewhere ([facility]) Type 2 diabetes mellitus with hyperglycemia, without long-term current use of insulin ([facility])- Primary Osteoarthrosis, generalized, involving multiple sites Generalized osteoarthrosis, involving multiple sites Diabetic polyneuropathy associated with type 2 diabetes mellitus ([facility] [facility] Edema of both legs Edema Gastroesophageal reflux disease without esophagitis Esophageal reflux Immunodeficiency due to conditions classified elsewhere ([facility]) Medicare annual wellness visit, subsequent- Primary Type 2 diabetes mellitus with hyperglycemia, without long-term current use of insulin ([facility]) Edema of both legs Edema Diabetic polyneuropathy associated with type 2 diabetes mellitus ([facility]) documented in this encounter [facility] HealthcareHistory general Narrative - Reported* Type Description Date Medical History Arthritis Medical History Diabetes Medical History Hypothyroidism Surgical History cholecystectomy Footmarks Other History general Narrative - Reported* Type Description Date Medical History Arthritis Medical History Diabetes Medical History Hypothyroidism Medical History Esophageal reflux Medical History hyperlipidemia Surgical History cholecystectomy Footmarks Other History general Narrative - Reported* Type Description Date Medical History Arthritis Medical History Diabetes Medical History Hypothyroidism Medical History Esophageal reflux Medical History hyperlipidemia Surgical History cholecystectomy Surgical History Arthrex cemented left reverse t otal shoulder 11/01/22 Footmarks Other Summary Purpose Family History No Family [...] L Inj/Asp: R knee Apling, Nicole Salazar NP [address] [address] Referral ID Status Reason Start Date Expiration Date V isits Requested Visits Authorized [id number] Authorized 03/19/2024 09/15/2024 1 1 Additional Source Comments REASON FOR VISIT (unrecogniz ed section and content) Reason Comments Follow-up Diabetic shoe Reason Comments Pain Reason Comments Med Refill Reason Comments Follow-up 3m Reason Comments Medicare Annual Wellness Visit [facility] wellness INFORMATION SOURCE (unrecogn ized section and content) DATE CREATED AUTHOR 10/11/2022 [facility] DATE CREATED AUTHOR AUTHOR'S ORGANIZ ATION 01/26/2023 [facility] DATE CREATED AUTHOR AUTHOR'S ORGANIZ ATION 07/08/2023 [facility] DATE CREATED AUTHOR AUTHOR'S ORGANIZ ATION 07/03/2024 [facility] EPIC Care Teams (unrecognized sec tion and content) Team Status: Active Member Role Status Dates Pierce Ptael MD Primary Care Provider Active Team Status: Inactive Member Role Status Dates Mino Jaimes MD Attending Provider Active Pierce Patel MD Primary Care Provider Active Team Status: Inactive Member Role Status Dates Pierce Patel MD Primary Care Provider Active Marcia Bolden NP-C Attending Provider Active [place] Relationship Specialty Start Date End Date Pierce Patel MD [address] [place] [address] PCP - General Family Medicine 07/13/23 [place] Relationship Specialty Start Date End Date Pierce Patel MD [address] [place] [address] PCP - General Family Medicine 07/13/23 [place] Relationship Specialty Start Date End Date Pierce Patel MD [address] [place] [address] PCP - General Family Medicine 07/13/23 [place] Relationship Specialty Start Date End Date Pierce Patel MD [address] [place] [address] PCP - General Family Medicine 07/13/23 [place] Relationship Specialty Start Date End Date Pierce Patel MD [address] [place] [address] PCP - General Family Medicine 07/13/23 [place] Relationship Specialty Start Date End Date Pierce Patel MD [address] [place] [address] PCP - General Family Medicine 07/13/23 [place] Relationship Specialty Start Date End Date Pierce Patel MD [address] [place] [address] PCP - General Family Medicine 07/13/23 [employer] Relationship Specialty Start Date End Date Pierce Patel MD [address] [place] [phone] PCP - General Family Medicine 07/13/23 [place] Relationship Specialty Start Date End Date Pierce Patel MD [address] [place] [phone] PCP - General Family Medicine 07/13/23 Goals [...] BE BASED ON THE PRIMARY CLINICAL RECORDS. [facility]. provides no warranty or guarantee of the accuracy or completeness of information in this document.
[2024-08-01 15:35] LABS: Estimated Average Glucose 160 mg/dL; Glycohemoglobin A1C 7.2 % (4.5-6.2)
== END 2024-08-01 15:00 | disposition home or self-care (01) ==
LOC: LAB 15:00
PROVIDERS: PCP Family Medicine; Visit Provider Family Medicine
DX: E11.65 Type 2 diabetes mellitus with hyperglycemia (principal)
CPT/HCPCS: 36415; 83036

== ENCOUNTER 2024-11-21 13:54 | Outpatient (OUT) | payer MEDICARE, SELFPAY ==
[2024-11-21 15:38] LABS: Basophils Absolute Auto 0.1 10^3/uL (0.0-0.1); Basophils Percent Auto 1.1 % (0.2-2.0); Eosinophils Absolute Auto 0.2 10^3/uL (0.0-0.7); Eosinophils Percent Auto 2.6 % (0.9-7.0); Hematocrit 33.8 % (36.0-48.0); Hemoglobin 11.6 g/dL (12.0-16.0); Immature Granulocytes Abs Auto 0.01 10^3/uL (0.00-0.03); Immature Granulocytes Pct Auto 0.2 % (0.0-0.5); Lymphocytes Absolute Auto 1.8 10^3/uL (1.2-3.8); Lymphocytes Percent Auto 27.8 % (20.5-60.0); Mean Corpuscular HGB Conc 34.3 g/dL (29.9-35.2); Mean Corpuscular Volume 93.1 fL (81.0-99.0); Mean Platelet Volume 12.5 fL (9.5-13.5); Monocytes Absolute Auto 0.7 10^3/uL (0.3-0.8); Neutrophils Absolute Auto 3.7 10^3/uL (1.4-6.5); Neutrophils Percent Auto 57.3 % (43.0-75.0); Platelet Count 219 10^3/uL (150-450); Red Blood Count 3.63 10^6/uL (4.20-5.40); White Blood Count 6.4 10^3/uL (4.0-11.0)
[2024-11-21 15:50] LABS: Creatinine Urine Random 43.77 mg/dL (20.00-300.00); Microalbumin Urine Random <1.3 mg/dL (<=30.0)
[2024-11-21 16:00] LABS: Alanine Aminotransferase 29 U/L (14-59); Albumin Globulin Ratio 0.9; Albumin Level 3.7 g/dL (3.4-5.0); Alkaline Phosphatase 95 U/L (46-116); Anion Gap 15.4; Aspartate Amino Transferase 23 U/L (15-37); BUN Creatinine Ratio 26.9; Bilirubin Direct 0.1 mg/dL (0.0-0.2); Bilirubin Total 0.5 mg/dL (0.2-1.0); Calcium 9.4 mg/dL (8.5-10.1); Chloride 100 mmol/L (98-107); Cholesterol 149 mg/dL (<=200); Estimated GFR (African America 45 (>=60 mL/min/1.73m^2); Estimated GFR (Non-African Ame 37 (>=60 mL/min/1.73m^2); Glucose 211 mg/dL (74-106); HDL Cholesterol 49 mg/dL (40-60); Potassium 4.4 mmol/L (3.5-5.1); Sodium 138 mmol/L (136-145); Thyroid Stimulating Hormone 1.641 uIU/mL (0.358-3.740); Total Protein 7.7 g/dL (6.4-8.2); Triglycerides 198 mg/dL (<=150); VLDL CHOLESTEROL 39.6 mg/dL
[2024-11-21 16:03] LABS: Estimated Average Glucose 189 mg/dL; Glycohemoglobin A1C 8.2 % (4.5-6.2)
[2024-11-21 16:29] LABS: Free T4 1.29 ng/dL (0.76-1.46)
--- OUTSIDE RECORDS SUMMARY | 2024-11-24 13:57 | XMS_ITS | Clinical Summary ---
Author Organization [facility] [facility] Address [id number] [address] [place] [address] Care Team Providers Care Consulting Database Administrator Name Role Phone Unavailable Primary Care Provider Unavailabl e Social History Tobacco Use Types Packs/Day Years Used Date Smoking Tobacco: Never Assessed Childcare Answer Date Recorded Childcare Unknown 11/20/2018 Employment Answer Date Recorded Employment Unknown 11/20/2018 Comments Unknown Sex and Gender Information Value Date Recorded Sex Assigned at Not on file Legal Sex Female 11:48 AM EDT Gender Identity Not on file Sexual Orientation Not on file Plan of Treatment Not on file Medical Devices Not on file
== END 2024-11-21 13:55 | disposition home or self-care (01) ==
LOC: LAB 11-24 13:54
PROVIDERS: PCP Family Medicine; Visit Provider Family Medicine
DX: E11.65 Type 2 diabetes mellitus with hyperglycemia (principal); E55.9 Vitamin D deficiency, unspecified; Z79.899 Other long term (current) drug therapy; E78.5 Hyperlipidemia, unspecified; E03.9 Hypothyroidism, unspecified
CPT/HCPCS: 36415; 80048; 80061; 80076; 82043; 82306; 82570; 83036; 84439; 84443; 85025